=== PATIENT | female | born 1945 | race Caucasian/White ===

== ENCOUNTER 2017-10-31 16:00 | Emergency (ER) | payer MEDICARE, SELFPAY ==
[2017-10-31 16:00] VITALS: BP 182/87; PULSE 70; RESP 20; TEMP 36.9; O2SAT 100
--- NOTE | 2017-10-31 19:29 | DI.RAD.S_ITS ---
PROCEDURE: XR CHEST 2V INDICATIONS: chest pain TECHNIQUE: 2 views of the chest were acquired. COMPARISON: None. FINDINGS: Surgical changes and devices: None. Lungs and pleura: No pleural effusions or pneumothorax. Lungs are clear. Mediastinum: Mediastinal contours are normal. Heart size is normal. Bones and chest wall: No suspicious bony abnormalities. Soft tissues appear unremarkable. IMPRESSION: No acute process. Dictated by: Salbador Deal M.D. on 10/31/2017 at 20:30 Approved by: Salbador Deal M.D. on 10/31/2017 at 20:31
[2017-10-31 19:32] LABS: Hematocrit 35.5 % (36-46); Hemoglobin 12.5 g/dL (12.0-16.0); Mean Corpuscular HGB Conc 35.1 % (30-36); Mean Corpuscular Hemoglobin 33.2 PG (26-34); Mean Corpuscular Volume 94.5 fL (80-100); Platelet Count 276 X10^3/uL (150-400); Red Blood Cell Count 3.76 X10^6/uL (4.0-5.2); Red Cell Distribution Width 13.1 % (11.6-14.8)
[2017-10-31 19:33] LABS: Neutrophils Absolute Manual 4880 /uL (3000-5900); RBC Morphology Normal Morphology; Total Cells Counted 100
[2017-10-31 19:36] VITALS: BP 175/94; PULSE 66; RESP 12; O2SAT 100
[2017-10-31] MEDS: ASPIRIN 81 MG TAB 324 MG PO (19:42)
[2017-10-31] MEDS: SODIUM CHLORIDE 0.9% 1,000 ML 150 ML IV (19:43)
--- NOTE | 2017-10-31 19:45 | ED_ITS ---
HPI - Chest Pain General Chief Complaint: Chest Pain Stated Complaint: CHEST PAIN Time Seen by Provider: 10/31/17 19:28 Source: patient and family Mode of arrival: ambulatory Limitations: no limitations History of Present Illness HPI narrative: 72-year-old otherwise healthy female presents with a chief complaint of episodes of epigastric and upper throat pain off and on over the past week. She denies cardiac equivalent such as dizziness, weakness or lightheadedness. She is not short of breath. She denies provocation or palliation. She is not having pain on arrival. She does admit to recent dental surgery and significant ibuprofen use. MD complaint: chest pain Onset (ago): day(s) Duration: intermittent Pain location: epigastric Severity: moderate Quality: aching Pain radiation: neck Relieving factors: nothing Exacerbating factors: nothing Treatments prior to arrival chest pain: none Related Data Previous Rx's Medication Instructions Recorded cholecalciferol (vitamin D3) 50,000 unit PO QWEEK #12 cap 02/04/16 Allergies Allergy/AdvReac Type Severity Reaction Status Date / Time No Known Drug Allergies Allergy Verified 10/31/17 19:42 Review of Systems Review of Systems All systems reviewed & are unremarkable except as noted in HPI and below Constitutional Denies chills, Denies fever(s), Denies lethargy and Denies weakness Eyes Denies change in vision, Denies eye discharge, Denies irritation and Denies loss of vision ENT Ears, Nose, Mouth, and Throat: Denies change in voice, Denies neck pain and Denies sore throat Cardiovascular Reports chest pain, Denies irregular heart rhythm, Denies lightheadedness, Denies palpitations, Denies dyspnea, Denies dyspnea on exertion and Denies orthopnea Respiratory Denies cough, Denies dyspnea, Denies dyspnea on exertion and Denies wheezing Gastrointestinal Gastrointestinal: Denies abdominal pain, Denies change in bowel habits, Denies diarrhea, Denies nausea and Denies vomiting Genitourinary Denies hematuria, Denies flank pain, Denies urinary incontinence and Denies urinary urgency Musculoskeletal Denies neck pain Integumentary/Breasts Denies pruritus, Denies erythema, Denies rash and Denies wounds Neurologic Denies confusion, Denies loss of vision and Denies weakness Psychiatric Denies anxiety, Denies confusion, Denies depression, Denies homicidal ideation and Denies suicidal ideation Endocrine Denies palpitations Hematologic/Lymphatic Denies easy bruising Allergic/Immunologic Denies wheezing PFSH Surgical History History of cataract removal with insertion of prosthetic lens Status post delivery Family History Father Diabetes mellitus Grandfather Heart disease Grandmother Stroke Mother Osteoporosis Grandmother Mental health problem Sister Bone cancer Social History Smoking Status: Former smoker Exam Initial Vital Signs Initial Vital Signs: Vital Signs Temperature 98.5 F 10/31/17 16:00 Pulse Rate 70 10/31/17 16:00 Respiratory Rate 20 10/31/17 16:00 Blood Pressure 182/87 H 10/31/17 16:00 Pulse Oximetry 100 10/31/17 16:00 Const General: cooperative and well developed Nutritional Appearance: well nourished Orientation: alert, awake, oriented x3 and not confused HENMT Head: normocephalic and atraumatic Ears: external ears normal and TM's normal bilaterally Nose: external nose normal and No nasal discharge Face and sinus: sinuses nontender, face symmetric, no sinus tenderness and No dry mucous membranes Mouth: oral mucosae normal and moist mucous membranes Teeth and gingiva: dentition normal Throat: tonsils normal and uvula midline Eyes General: appearance normal, both eyes and all related structures Eyelids: eyelids normal Conjunctivae: conjunctivae normal Sclera: sclerae normal Pupils: PERRL EOM: EOM intact bilaterally Neck Neck: normal visual inspection, trachea midline, No lymphadenopathy, No midline deformity and No JVD Lymphatic: No lymphedema Chest Chest: normal inspection of the chest Resp Effort & Inspection: normal respiratory effort, able to speak in complete sentences, no respiratory distress and no use of accessory muscles Auscultation: clear to auscultation bilaterally, no rales, no rhonchi and no wheezes Cardio Rate: regular rate Rhythm: regular rhythm Heart Sounds: no click, no gallops, no murmurs and no rubs Pulses: normal peripheral pulses GI Inspection: non-distended Palpation: soft, no hepatosplenomegaly, No guarding, No pulsatile mass and No tender Auscultation: normal bowel sounds Back/Spine/Pelvis Back: No CVA tenderness Cervical Spine: cervical ROM normal and No pain with cervical ROM Thoracic/Lumbar Spine: thoracic and lumbar spine normal to inspection Skin General: no rashes or lesions noted, No jaundice and No petechiae Neuro General: alert, oriented x3, gait normal and no focal motor deficits Speech: speech normal Extrem General: full ROM, no clubbing, cyanosis or edema, no pedal edema and no calf tenderness Psych Appearance: well kempt Mental Status: mental status grossly normal Attitude: cooperative Thought Content: normal and suicidality Judgment: judgment good Scores HEART Score Heart Score history: Slightly Suspicious Heart Score EKG: Normal Heart Score Age: > or = 65 years old Heart Score risk factors: No known risk factors Heart Score troponin: < or = to normal limit Heart Score Total: 2 Course Orders Ordered: ED Orders 10/31/17 19:29 XR chest 2V Stat 10/31/17 20:35 Comprehensive Metabolic Panel Stat Creatine Kinase Stat D Dimer Stat Lipase Stat Partial Thromboplastin Time Stat Prothrombin Time INR Stat Troponin I Stat Discontinued Medications Aspirin (Aspirin Chew) 324 mg PO NOW ONE Stop: 10/31/17 19:30 Last Admin: 10/31/17 19:42 Dose: 324 mg Sodium Chloride (Normal Saline 0.9%) 1,000 mls @ 150 mls/hr IV CONT ABDOUL Last Infusion: 10/31/17 22:48 Dose: 0 mls/hr Admin: 10/31/17 19:43 Dose: 150 mls/hr Reevaluation(s) Reevaluation #1: Patient states the burning pain in her chest worsened after taking aspirin Vital Signs - 8 hr 10/31/17 20:37 10/31/17 21:30 10/31/17 22:09 Pulse Rate 73 64 67 Respiratory Rate 15 14 21 Blood Pressure [Left Arm] 168/91 H 162/84 H 160/81 H Pulse Oximetry 100 98 99 MDM - Chest Pain Lab Data Result diagrams: 10/31/17 14:10 10/31/17 20:35 Lab Results 10/31/17 10/31/17 10/31/17 Range/Units 14:10 14:10 14:10 WBC 8.0 (4.5-11.0) X10^3/uL RBC 3.76 L (4.0-5.2) X10^6/uL Hgb 12.5 (12.0-16.0) g/dL Hct 35.5 L (36-46) % MCV 94.5 (80-100) fL MCH 33.2 (26-34) PG MCHC 35.1 (30-36) % RDW 13.1 (11.6-14.8) % Plt Count 276 (150-400) X10^3/uL Total Counted 100 Seg Neutrophils % 61.0 (38-70) % Lymphocytes % (Manual) 29.0 (25-45) % Monocytes % (Manual) 8.0 (2-11) % Eosinophils % (Manual) 1.0 L (2-4) % Basophils % (Manual) 1.0 (0-1) % Neutrophils # (Manual) 4880 (7640-6069) /uL RBC Morphology Normal morphology PT Cancelled INR Cancelled APTT Cancelled D-Dimer (<230) ng/mL Sodium Cancelled Potassium Cancelled Chloride Cancelled Carbon Dioxide Cancelled BUN Cancelled Creatinine Cancelled Estimated GFR Cancelled BUN/Creatinine Ratio Cancelled Glucose Cancelled Calcium Cancelled Total Bilirubin Cancelled AST Cancelled ALT Cancelled Alkaline Phosphatase Cancelled Total Creatine Kinase Cancelled CK-MB (CK-2) Cancelled CK-MB (CK-2) Rel Index Cancelled Troponin I Cancelled Total Protein Cancelled Albumin Cancelled Globulin Cancelled Albumin/Globulin Ratio Cancelled Lipase (23-300) U/L 10/31/17 10/31/17 Range/Units 20:35 20:35 WBC (4.5-11.0) X10^3/uL RBC (4.0-5.2) X10^6/uL Hgb (12.0-16.0) g/dL Hct (36-46) % MCV (80-100) fL MCH (26-34) PG MCHC (30-36) % RDW (11.6-14.8) % Plt Count (150-400) X10^3/uL Total Counted Seg Neutrophils % (38-70) % Lymphocytes % (Manual) (25-45) % Monocytes % (Manual) (2-11) % Eosinophils % (Manual) (2-4) % Basophils % (Manual) (0-1) % Neutrophils # (Manual) (7218-5045) /uL RBC Morphology PT 10.7 INR 1.0 APTT 28 D-Dimer < 200 (<230) ng/mL Sodium 133 L Potassium 3.8 Chloride 94 L Carbon Dioxide 29 BUN 12 Creatinine 0.60 Estimated GFR > 60.0 BUN/Creatinine Ratio 20.0 Glucose 89 Calcium 9.2 Total Bilirubin 0.4 AST 21 ALT 23 Alkaline Phosphatase 83 Total Creatine Kinase 64 CK-MB (CK-2) CK-MB (CK-2) Rel Index Troponin I < 0.012 Total Protein 6.9 Albumin 4.0 Globulin 2.9 Albumin/Globulin Ratio 1.4 Lipase 121 (23-300) U/L MDM Narrative Medical decision making narrative: Patient has a minimally suspicious story very normal exam. I she has had extensive NSAID had her pain worsens with and said he. Troponin was normal, EKG unremarkable Discharge Plan Departure Patient Disposition: Home, Self-Care Clinical Impression: Atypical chest pain Discharge Date/Time: 10/31/17 22:09 Interventions: ED Discharge Assessment Last Done: 10/31/17 22:09 Instructions: DI for Atypical Chest Pain Activity Restrictions/Additional Instructions: *You have been diagnosed with [ atypical chest pain ] *What to do: *Follow up with your primary care provider in 2-3 days, call for an appointment. Let them know you were seen in the Emergency Department and that we ask that you be seen in follow up *Return to ER if you should have any new, worsening or concerning symptoms , such as [ worsening pain, shortness of breath, fever over 101 F, other bothersome symptoms] Prescriptions: No Action cholecalciferol (vitamin D3) 50,000 UNIT capsule 50,000 unit PO QWEEK Qty: 12 RF: 1 Referrals: Sulema Miller DO [Primary Care Provider] -
[2017-10-31 20:37] VITALS: BP 168/91; PULSE 73; RESP 15; O2SAT 100
[2017-10-31 20:57] LABS: Prothrombin Time 10.7 SECONDS (10.1-12.7)
[2017-10-31 20:59] LABS: PTT Partial Thromboplastin Tim 28 SECONDS (26.4-36.2)
[2017-10-31 21:00] LABS: Alanine Aminotransferase 23 IU/L (9-52); Albumin Globulin Ratio 1.4 (1.0-2.8); Alkaline Phosphatase 83 U/L (38-126); Aspartate Aminotransferase 21 IU/L (14-36); Bilirubin Total 0.4 mg/dL (0.2-1.3); Blood Urea Nitrogen 12 mg/dL (7-17); Calcium 9.2 mg/dL (8.4-10.2); Carbon Dioxide 29 mmol/L (22-32); Chloride 94 mmol/L (98-107); Creatine Kinase 64 U/L (30-135); Estimated Glomerular Filt Rate > 60.0 mL/min (>60); Globulin 2.9 g/dL (1.7-4.1); Glucose 89 mg/dL (80-110); HEMOLYSIS < 15 (0-50); Lipase 121 U/L (23-300); Potassium 3.8 mmol/L (3.4-5.1); Sodium 133 mmol/L (137-145); Total Protein 6.9 g/dL (6.3-8.2)
[2017-10-31 21:03] LABS: D Dimer < 200 ng/mL (<230)
[2017-10-31 21:28] LABS: Troponin I < 0.012 ng/mL (0.01-0.034)
[2017-10-31 21:30] VITALS: BP 162/84; PULSE 64; RESP 14; O2SAT 98
[2017-10-31 22:09] VITALS: BP 160/81; PULSE 67; RESP 21; O2SAT 99
== END 2017-10-31 22:09 | disposition home or self-care (01) ==
PROVIDERS: Emergency Provider Emergency Medicine; Family Provider Family Medicine; PCP Family Medicine
DX: R07.89 Other chest pain (principal)
CPT/HCPCS: 36591; 71046; 80053; 82550; 83690; 84484; 85025; 85379; 85610; 85730; 93005; 96360; 96361; 99283; 99285

== ENCOUNTER → 2017-12-05 09:09 | Outpatient (CLI) | payer MEDICARE, SELFPAY ==
[2017-12-05 10:18] LABS: Cholesterol 194 mg/dL (140-199); HDL Cholesterol 71 mg/dL (40-60); LDL Cholesterol Calculated 106 mg/dL (<100); Triglycerides 84 mg/dL (35-150)
[2017-12-05 10:37] LABS: Vitamin D 25 Hydroxy (D3) 30.5 ng/mL (30.0-100.0)
== END ==
PROVIDERS: PCP Family Medicine; Visit Provider Family Medicine
DX: R07.89 Other chest pain (principal); E55.9 Vitamin D deficiency, unspecified
CPT/HCPCS: 36415; 80061; 82306

== ENCOUNTER → 2018-01-16 09:29 | Outpatient (CLI) | payer MEDICARE, SELFPAY ==
--- NOTE | 2018-01-16 09:31 | DI.MG.S_ITS ---
BILATERAL DIGITAL SCREENING MAMMOGRAM 3D/2D WITH CAD: 01/16/2018 CLINICAL: Routine screening. Comparison is made to exams dated: 12/29/2015 mammogram, 11/12/2012 mammogram, and 11/04/2011 mammogram - [facility]. There are scattered fibroglandular elements in both breasts. Current study was also evaluated with a Computer Aided Detection (CAD) system. There is an oval equal density asymmetry with an indistinct margin in the left breast at 1 o'clock anterior depth. No other significant masses, calcifications, or other findings are seen in either breast. IMPRESSION: INCOMPLETE: NEEDS ADDITIONAL IMAGING EVALUATION The oval equal density asymmetry in the left breast is indeterminate. Mediolateral and spot compression views as well as additional views with possible ultrasound are recommended. This exam was interpreted at Station ID: [id number]. NOTE: For mammograms, a report in lay terms will be sent to the patient. Approximately 15% of breast malignancies will not be visualized mammographically. In the management of a palpable breast mass, a negative mammogram must not discourage biopsy of a clinically suspicious lesion. Electronically Signed By: Maurisio gonzalez/johnnie:01/16/2018 11:37:53 letter sent: Additional Imaging Needed ACR BI-RADS Category 0: Incomplete 3340F
== END ==
PROVIDERS: Family Provider Family Medicine; PCP Family Medicine; Visit Provider Family Medicine
DX: Z12.31 Encounter for screening mammogram for malignant neoplasm of breast (principal); M81.0 Age-related osteoporosis without current pathological fracture; Z78.0 Asymptomatic menopausal state; Z82.62 Family history of osteoporosis
CPT/HCPCS: 77063; 77067; 77080

== ENCOUNTER → 2018-02-14 13:35 | Outpatient (CLI) | payer MEDICARE, SELFPAY ==
--- NOTE | 2018-02-14 13:37 | DI.MG.S_ITS ---
UNILATERAL LEFT DIGITAL DIAGNOSTIC MAMMOGRAM 3D/2D WITH ADDITIONAL VIEWS: 02/14/2018 CLINICAL: Additional evaluation requested from prior study. Comparison is made to exams dated: 01/16/2018 mammogram, 12/29/2015 mammogram, and 11/12/2012 mammogram - Located [facility]. There are scattered fibroglandular elements in left breast. The asymmetry with an indistinct margin in the left breast at 1 o'clock anterior depth is not seen in additional views. No other significant masses or calcifications are seen in the breast. IMPRESSION: There is no mammographic evidence of malignancy. A 1 year screening mammogram is recommended. This exam was interpreted at Station ID: [id number]. NOTE: For mammograms, a report in lay terms will be sent to the patient. Approximately 15% of breast malignancies will not be visualized mammographically. In the management of a palpable breast mass, a negative mammogram must not discourage biopsy of a clinically suspicious lesion. Electronically Signed By: Fabby Godwin M.D. lk/:02/14/2018 14:36:18 letter sent: Normal Exam ACR BI-RADS Category 2: Benign Finding(s) 3342F
== END ==
PROVIDERS: PCP Family Medicine; Visit Provider Family Medicine
DX: R92.8 Other abnormal and inconclusive findings on diagnostic imaging of breast (principal)
CPT/HCPCS: 77065; G0279

== ENCOUNTER → 2018-10-17 09:32 | Outpatient (CLI) | payer MEDICARE, SELFPAY ==
--- NOTE | 2018-11-16 15:58 | P.HOLT.S_ITS ---
Corporate Compliance Director Report Referral & Results Date Patient Seen: 10/17/18 Requesting provider: Sulema Miller Indication: Palpitations Duration of monitoring (days): 14 Diary information: There 0 diary entries from the patient His 1 patient triggered event associated with sinus rhythm Data: Minimum heart rate identified was 52 beats per minute at 05:19 on 10/31/2018 Maximum sinus heart rate was 151 beats per minute at 18:12 on 10/25/2018 Maximum overall heart rate was 184 beats per minute at 23:32 on 10/30/2018 associated with a 4 beat run of SVT Less than 1% identified be rather ventricular supraventricular ectopic in origin There were 7 runs of a accelerated supraventricular rhythm either SVT or atrial tachycardia. The longest was 9 beats and the fast as was 4 beats at 184 beats per minute Impression: Relatively normal threat monitoring analyst as above. Occasional supraventricular dysrhythmia. No clear etiology for palpitations identified on this study.
== END ==
PROVIDERS: PCP Family Medicine; Visit Provider Family Medicine
DX: R00.2 Palpitations (principal)
CPT/HCPCS: 0296T; 0298T

== ENCOUNTER → 2018-12-10 13:34 | Outpatient (CLI) | payer MEDICARE, SELFPAY ==
--- NOTE | 2018-12-10 13:36 | DI.ECHO.S_ITS ---
[facility]---------+ [facility] +---------+ : : [address] [place] : : : : [id number] : : : : Phone: [phone]+ Echocardiogram Report + + :Name: JJ CHÁVEZ Study Date: 12/10/2018 Height: 63 in : :[facility] Weight: 140 lb : : Gender: Female BSA: 1.7 m2 : :: 1945 Age: 73 yrs BP: 110/70 mmHg: :Reason For Study: Palpitations : : Performed By: Odalys Bolden : :Referring: CARY CARR : + + Interpretation Summary Normal left ventricle size with ejection fraction 60-65%. Borderline left atrial enlargement. Mild mitral regurgitation. Procedure: A two-dimensional transthoracic echocardiogram with color flow and Doppler was performed. The study quality was technically adequate. There is no prior echocardiogram noted for this patient. The patient was in normal sinus rhythm during the exam. Left Ventricle: The left ventricle is normal in size. There is normal left ventricular wall thickness. The ejection fraction is estimated to be 60-65%. There are no focal wall motion abnormalities. Right Ventricle: The right ventricle grossly appears normal in size with probable normal systolic function. Atria: Borderline left atrial enlargement. Right atrial size is normal. The interatrial septum is intact with no evidence for an atrial septal defect. Mitral Valve: There is a flat closure plane of the the mitral valve leaflets. There is mild mitral regurgitation. Aortic Valve: The aortic valve is trileaflet. The aortic valve opens well. No aortic regurgitation is present. Tricuspid Valve: The tricuspid valve is normal in structure and function. There is a trace or physiologic amount of tricuspid regurgitation. The right ventricular systolic pressure is estimated to be at least 19 mmHg based on an estimated right atrial pressure of 3 mm Hg. Pulmonic Valve: The pulmonic valve is not well seen, but is grossly normal. There is trace pulmonic regurgitation. Great Vessels: The aortic root is normal size. The dimensions of the ascending aorta are normal. The aortic arch is normal in size. The IVC is of normal diameter and collapses greater than 50% with a sniff. This suggests a low right atrial pressure of 3 mm Hg. Pericardium/ Pleura There is no pericardial effusion. There is no pleural effusion. MMode/2D Measurements & Calculations LVIDd: 4.8 cm Ao root diam: 2.9 cm LVIDs: 2.6 cm Aortic Jxn: 2.4 cm FS: 47.3 % asc Aorta Diam: 2.9 cm EPSS: 0.56 cm Ao Arch Diam (Prox Trans): 2.3 cm IVSd: 0.83 cm LVPWd: 0.61 cm LV zaldivar. diameter/BSA (cm/m^2): 2.9 LV sys. diameter/BSA (cm/m^2): 1.5 LA dimension: 3.2 cm RA long axis: 4.6 cm LA A2 area: 19.4 cm2 RA area: 13.8 cm2 LA A4 area: 18.3 cm2 RA vol: 34.8 ml LA length (vol): 4.7 cm RA : 21.0 ml/m2 LA vol: 63.5 ml RVDd major: 5.2 cm LA vol index: 38.2 ml/m2 RVD1 (basal): 3.7 cm RVD2 (mid): 3.6 cm Doppler Measurements & Calculations Ao V2 max: 137.6 cm/sec MV E max srinath: 89.0 cm/sec Ao V2 mean: 84.6 cm/sec MV A max srinath: 75.8 cm/sec Ao max P.6 mmHg MV E/A: 1.2 Ao mean P.3 mmHg Med Peak E' Srinath: 7.3 cm/sec Ao V2 VTI: 26.7 cm E/E' med: 12.3 Lat Peak E' Srinath: 7.4 cm/sec E/E' lat: 12.1 E/e' average: 12.2 MV dec time: 0.24 sec MV P1/2t: 71.8 msec TR max srinath: 200.1 cm/sec MV P1/2t max srinath: 89.5 cm/sec TR max P.0 mmHg MVA(P1/2t): 3.1 cm2 PA V2 max: 113.8 cm/sec PA V2 mean: 67.5 cm/sec PA mean P.2 mmHg PA Accel Time: 0.11 sec Electronically signed by: Loyda Newby on Reading Physician:12/10/2018 02:50 PM
== END ==
PROVIDERS: PCP Family Medicine; Visit Provider Family Medicine
DX: R00.2 Palpitations (principal)
CPT/HCPCS: C8929

== ENCOUNTER 2019-01-24 12:18 | Day surgery (SDC) | payer MEDICARE, SELFPAY ==
[2019-01-24] VITALS (8 sets, daily range): BP systolic 88–134; BP diastolic 55–75; PULSE 66–83; RESP 10–29; TEMP 36.1–37.1; O2SAT 91–100; BMI 24.8
[2019-01-24] MEDS: SODIUM CHLORIDE 0.9% 1,000 ML 200 ML IV (13:01)
--- NOTE | 2019-01-24 13:22 | PM.HP.1 ---
History of Present Illness History of Present Illness Date Patient Seen: 01/24/19 Time Patient Seen: 13:22 Chief complaint: [id number] Narrative: Patient presents for colorectal screening. They had a prior colonoscopy 5 years ago that was significant for an adenomatous polyp. On further history denies any recent gastrointestinal symptoms. No nausea, vomiting, abdominal pain, loss of appetite, unexplained weight loss, change in bowel habits, diarrhea, constipation, melena, hematochezia, or bright red blood per rectum. Patient History Medical History Acid reflux (Acute) Bruises easily (Acute) Cataract (Resolved 2012) Chicken pox (Resolved 1949) Colon polyps (Resolved 2013) Constipation (Acute) Dupuytren's disease (Chronic ~1989) Former smoker (Acute) History of headache (Acute) History of palpitations (Acute) Mumps (Resolved 1952) Osteoporosis (12/18/15) Surgical History Anesthesia (Resolved) History of cataract removal with insertion of prosthetic lens (Resolved 2012) History of colonoscopy with polypectomy (Resolved 2013) Status post delivery (Resolved 1987) Family History (Updated 12/06/17 @ 08:49 by Torri Trevino) Father Diabetes mellitus Grandfather Heart disease Grandmother Stroke Mother Osteoporosis Grandmother Mental health problem Dementia Sister Bone cancer Brother No problems noted. Brother No problems noted. Grandfather Ruptured appendix Sister No problems noted. Social History household members: spouse Smoking Status: Former smoker Family & Social History Family History Father Diabetes mellitus Grandfather Heart disease Grandmother Stroke Mother Osteoporosis Grandmother Mental health problem Dementia Sister Bone cancer Brother No problems noted. Brother No problems noted. Grandfather Ruptured appendix Sister No problems noted. Social History: household members spouse Tobacco & Substance use: Smoking Status Former smoker alcohol intake frequency 0-2 drinks per day Substance Use Type does not use Meds Home Medications and Allergies Home Medications Medication Instructions Recorded Confirmed Type cholecalciferol (vitamin D3) 2,000 2,000 unit PO DAILY 12/13/17 01/24/19 History unit capsule aspirin 81 mg tablet,delayed 81 mg PO DAILY 01/29/18 01/24/19 History release alendronate 70 mg tablet 70 mg PO QWEEK #12 tab 01/09/19 01/24/19 Rx Allergies Allergy/AdvReac Type Severity Reaction Status Date / Time No Known Drug Allergies Allergy Verified 01/24/19 12:51 Review of Systems Review of Systems ROS Unobtainable: All systems reviewed & are unremarkable except as noted in HPI and below Exam Vital Signs (past 8 hours): - 01/24/19 13:01 Temperature 98.7 F Pulse Rate 83 Respiratory Rate 16 Blood Pressure 134/75 Pulse Oximetry 100 Narrative Exam Narrative: A complete review of systems is negative except as noted in the HPI Assessment & Plan Assessment & Plan narrative: Patient is requiring colorectal screening. Colonoscopy is recommended. Technical details were discussed. Risks, benefits, alternatives explained. Risks including but not limited to sedation, aspiration, bleeding, pain, missed lesion, incomplete examination, need for further radiographic studies, colonic perforation, need for major abdominal surgery, and all attendant risks major surgery were discussed at length. All questions were answered to their satisfaction, and they voiced understanding.
[2019-01-24] MEDS: MIDAZOLAM 5 MG/5 ML VIAL IV (13:31)
[2019-01-24] MEDS: fentaNYL 250 MCG/5 ML INJ IV (13:32)
--- NOTE | 2019-01-24 13:58 | PM.OP.ENDO ---
Operative Date/Time/Diagnoses Date of procedure: 01/24/19 Time of procedure: 13:58 Pre-op diagnosis: Screening colonoscopy Post-op diagnosis: same Procedure & Clinicians Study performed: Colonoscopy Same procedure as scheduled: Yes Indications: 73-year-old male previous colonoscopy 10 years ago normal presents for screening Surgeon: Yayo Guallpa Procedure Notes SCOAP/Timeout: Performed Procedure in detail: Patient placed in left lateral decubitus position. Time out was performed. Procedural sedation was administered with Versed and Fentanyl. A rectal exam demonstrated no external hemorrhoids no internal masses. Colonoscopy scope was placed into the rectum and advanced through the colon to the cecum. The ileocecal valve was identified. The scope was then slowly withdrawn examining colon thoroughly in all directions. The colonoscopy was notable for sigmoid diverticulosis. There were no masses polyps or colitis. The scope was retroflexed within the rectum demonstrated grade 1 internal hemorrhoids. The rectum was desufflated and the scope removed. Patient tolerated procedure well. Scope withdrawal time: 8 Sedation minutes: 20 Findings: diverticulosis and internal hemorrhoids Specimen(s): none sent Impression: diverticulosis Post-procedure Recommendations: Colonscopy in 10 years Disposition: PACU
== END 2019-01-24 14:49 | disposition home or self-care (01) ==
PROVIDERS: PCP Family Medicine; Visit Provider Surgery
PROC: 0DJD8ZZ Inspection of Lower Intestinal Tract, Via Natural or Artificial Opening Endoscopic (ICD-10-PCS; CPT 45378; principal; 2019-01-24 13:30)
DX: Z86.010 Personal history of colon polyps (principal); K57.50 Diverticulosis of both small and large intestine without perforation or abscess without bleeding; K64.0 First degree hemorrhoids
CPT/HCPCS: G0105; 99152; J2250; J3010

== ENCOUNTER → 2019-03-11 13:19 | Outpatient (CLI) | payer MEDICARE, SELFPAY ==
[2019-03-11 14:15] LABS: Alanine Aminotransferase 12 IU/L (<35); Albumin 4.3 g/dL (3.5-5.0); Albumin Globulin Ratio 1.3 (1.0-2.8); Alkaline Phosphatase 86 U/L (38-126); Aspartate Aminotransferase 23 IU/L (14-36); Bilirubin Total 0.5 mg/dL (0.2-1.3); Blood Urea Nitrogen 14 mg/dL (7-17); Calcium 9.4 mg/dL (8.4-10.2); Carbon Dioxide 29 mmol/L (22-32); Chloride 98 mmol/L (98-107); Cholesterol 227 mg/dL (140-199); Estimated Glomerular Filt Rate > 60.0 mL/min (>60); Globulin 3.3 g/dL (1.7-4.1); Glucose 108 mg/dL (80-110); HDL Cholesterol 79 mg/dL (40-60); HEMOLYSIS < 15 (0-50); LDL Cholesterol Calculated 121 mg/dL (<100); Potassium 4.6 mmol/L (3.4-5.1); Sodium 135 mmol/L (137-145); Total Protein 7.6 g/dL (6.3-8.2); Triglycerides 137 mg/dL (35-150)
== END ==
PROVIDERS: PCP Family Medicine; Visit Provider Family Medicine
DX: E78.5 Hyperlipidemia, unspecified (principal)
CPT/HCPCS: 36415; 80053; 80061

== ENCOUNTER → 2019-11-21 14:33 | Outpatient (CLI) | payer MEDICARE, SELFPAY | PROVIDERS: PCP Family Medicine; Visit Provider Registered Nurse | DX: N39.0 Urinary tract infection, site not specified (principal) | CPT/HCPCS: 87077; 87086; 87186 ==

== ENCOUNTER → 2020-01-03 13:23 | Outpatient (CLI) | payer MEDICARE, SELFPAY ==
[2020-01-03 14:57] LABS: RBC Urine None Seen (0-5/HPF)
[2020-01-03 15:58] LABS: Appearance Urine UA CLEAR; Bilirubin Urine UA NEGATIVE (NEGATIVE); Color Urine UA YELLOW; Glucose Urine UA NEGATIVE (Negative); Ketones Urine UA NEGATIVE (NEGATIVE); Leukocyte Esterase Urine UA 1+ (NEGATIVE); Nitrite Urine UA POSITIVE (Negative); Occult Blood Urine UA NEGATIVE (Negative); Protein Urine UA NEGATIVE (Negative); Specific Gravity Urine UA <=1.005 (1.000-1.035); Urobilinogen Urine UA 0.2 E.U./dL (0.2)
[2020-01-03 16:07] LABS: Bacteria Urine Many (>30); Culture Indicated Urine Specimen Cultured; WBC Urine 5-10/HPF (0-5/HPF)
[2020-01-03 17:00] LABS: Alanine Aminotransferase 11 IU/L (<35); Albumin 3.9 g/dL (3.5-5.0); Albumin Globulin Ratio 1.3 (1.0-2.8); Alkaline Phosphatase 97 U/L (38-126); Aspartate Aminotransferase 22 IU/L (14-36); BUN Creatinine Ratio 19.3 (6-22); Bilirubin Total 0.3 mg/dL (0.2-1.3); Blood Urea Nitrogen 11 mg/dL (7-17); Calcium 9.3 mg/dL (8.4-10.2); Carbon Dioxide 29 mmol/L (22-32); Chloride 96 mmol/L (98-107); Cholesterol 202 mg/dL (140-199); Estimated Glomerular Filt Rate > 60.0 mL/min (>60); Glucose 79 mg/dL (80-110); HDL Cholesterol 81 mg/dL (40-60); HEMOLYSIS < 15 (0-50); LDL Cholesterol Calculated 97 mg/dL (<100); Potassium 4.3 mmol/L (3.4-5.1); Sodium 133 mmol/L (137-145); Total Protein 6.9 g/dL (6.3-8.2); Triglycerides 118 mg/dL (35-150)
== END ==
PROVIDERS: PCP Family Medicine; Referring Provider Registered Nurse; Visit Provider Registered Nurse
DX: N39.0 Urinary tract infection, site not specified (principal); E78.5 Hyperlipidemia, unspecified; R73.03 Prediabetes
CPT/HCPCS: 36415; 80053; 80061; 81001; 87077; 87086; 87186

== ENCOUNTER → 2020-01-16 10:03 | Outpatient (CLI) | payer MEDICARE, SELFPAY | PROVIDERS: PCP Family Medicine; Referring Provider Family Medicine; Visit Provider Family Medicine | DX: M81.0 Age-related osteoporosis without current pathological fracture (principal); Z78.0 Asymptomatic menopausal state; Z82.62 Family history of osteoporosis; Z87.891 Personal history of nicotine dependence | CPT/HCPCS: 77080 ==

== ENCOUNTER → 2020-01-17 13:26 | Outpatient (CLI) | payer MEDICARE, SELFPAY ==
[2020-01-17 15:39] LABS: Appearance Urine UA SL CLOUDY; Bilirubin Urine UA NEGATIVE (NEGATIVE); Glucose Urine UA NEGATIVE (Negative); Ketones Urine UA NEGATIVE (NEGATIVE); Leukocyte Esterase Urine UA 2+ (NEGATIVE); Nitrite Urine UA POSITIVE (Negative); Occult Blood Urine UA TRACE-LYSED (Negative); Protein Urine UA NEGATIVE (Negative); Urobilinogen Urine UA 0.2 E.U./dL (0.2)
[2020-01-17 15:47] LABS: Bacteria Urine Many (>30); Color Urine UA Yellow; Culture Indicated Urine Specimen Cultured; RBC Urine 0-1/HPF (0-5/HPF); WBC Urine 30-100/HPF (0-5/HPF)
== END ==
PROVIDERS: PCP Family Medicine; Visit Provider Nurse Practitioner Family
DX: R30.0 Dysuria (principal)
CPT/HCPCS: 81001; 87077; 87086; 87186

== ENCOUNTER → 2020-01-24 11:10 | Outpatient (CLI) | payer MEDICARE, SELFPAY | PROVIDERS: PCP Family Medicine; Visit Provider Family Medicine | DX: N39.0 Urinary tract infection, site not specified (principal) | CPT/HCPCS: 87077; 87086; 87186 ==

== ENCOUNTER → 2020-02-05 08:57 | Outpatient (CLI) | payer MEDICARE, SELFPAY ==
[2020-02-05 13:40] LABS: Appearance Urine UA SL CLOUDY; Bilirubin Urine UA NEGATIVE (NEGATIVE); Color Urine UA YELLOW; Glucose Urine UA NEGATIVE (Negative); Ketones Urine UA NEGATIVE (NEGATIVE); Leukocyte Esterase Urine UA 3+ (NEGATIVE); Nitrite Urine UA POSITIVE (Negative); Occult Blood Urine UA TRACE-LYSED (Negative); Protein Urine UA NEGATIVE (Negative); Specific Gravity Urine UA <=1.005 (1.000-1.035); Urobilinogen Urine UA 0.2 E.U./dL (0.2)
[2020-02-05 14:04] LABS: Bacteria Urine Many (>30); Culture Indicated Urine Cult Not Indicated; RBC Urine 1-5/HPF (0-5/HPF); Squamous Epithelial Cell Urine 5-10 /HPF (0-5/HPF); WBC Urine 10-30/HPF (0-5/HPF); pH Urine UA 6.5 (4.5-8.0)
== END ==
PROVIDERS: PCP Family Medicine; Visit Provider Family Medicine
DX: N39.0 Urinary tract infection, site not specified (principal)
CPT/HCPCS: 81001

== ENCOUNTER → 2020-02-10 09:34 | Outpatient (CLI) | payer MEDICARE, SELFPAY | PROVIDERS: PCP Family Medicine; Referring Provider Family Medicine; Visit Provider Family Medicine | DX: N39.0 Urinary tract infection, site not specified (principal) | CPT/HCPCS: 87077; 87086; 87186 ==

== ENCOUNTER → 2020-02-17 09:25 | Outpatient (CLI) | payer MEDICARE, SELFPAY | PROVIDERS: PCP Family Medicine; Visit Provider Family Medicine | DX: N39.0 Urinary tract infection, site not specified (principal) | CPT/HCPCS: 87086 ==

== ENCOUNTER 2021-07-26 14:17 | Emergency (ER) | payer OTHER, SELFPAY ==
[2021-07-26 14:39] VITALS: BP 209/99; PULSE 69; RESP 16; TEMP 36.2; O2SAT 97; BMI 24.7
--- NOTE | 2021-07-26 14:46 | DI.RAD.S_ITS ---
PROCEDURE: XR ACUTE ABDOMEN SERIES INDICATIONS: no stool x 1 week, not passing gas TECHNIQUE: One view chest and two views of the abdomen were acquired. COMPARISON: None. FINDINGS: Surgical changes and devices: None. Chest: Lungs are clear. Heart size is normal. No pleural effusions. No pneumoperitoneum. Probable emphysematous change. Abdomen: Bowel gas pattern is normal. Moderately large right colonic fecal load. No suspicious calcifications. Visualized solid organ contours appear normal. Bones: No suspicious bony lesions. IMPRESSION: Moderately large right colonic fecal load. Nonobstructive bowel gas pattern. Probable COPD. Dictated by: Mike Rao M.D. on 07/26/2021 at 15:46 Approved by: Mike Rao M.D. on 07/26/2021 at 15:47
[2021-07-26 14:58] LABS: Add Manual Diff / Slide Review NO; Basophils Absolute Auto 0 /uL (0-100); Basophils Percent Auto 0.5 % (0-2); Eosinophils Absolute Auto 0 /uL (0-450); Eosinophils Percent Auto 0.5 % (2-4); Hematocrit 27.6 % (36-46); Hemoglobin 9.3 g/dL (12.0-16.0); Lymphocytes Absolute Auto 1400 /uL (1100-4500); Lymphocytes Percent Auto 18.7 % (25-40); Mean Corpuscular HGB Conc 33.8 % (30-36); Mean Corpuscular Hemoglobin 30.7 PG (26-34); Mean Corpuscular Volume 90.8 fL (80-100); Monocytes Absolute Auto 500 /uL (0-900); Neutrophils Absolute Auto 5600 /uL (1500-7000); Neutrophils Percent Auto 73.3 % (50-75); Platelet Count 332 X10^3/uL (150-400); Red Blood Cell Count 3.04 X10^6/uL (4.0-5.2); Red Cell Distribution Width 13.8 % (11.6-14.8); White Blood Cell Count 7.7 X10^3/uL (4.5-11.0)
[2021-07-26 15:11] LABS: Alanine Aminotransferase 11 IU/L (<35); Albumin 4.3 g/dL (3.5-5.0); Albumin Globulin Ratio 1.2 (1.0-2.8); Alkaline Phosphatase 78 U/L (38-126); Aspartate Aminotransferase 25 IU/L (14-36); BUN Creatinine Ratio 16.4 (6-22); Bilirubin Total 0.4 mg/dL (0.2-1.3); Blood Urea Nitrogen 11 mg/dL (7-17); Calcium 9.7 mg/dL (8.4-10.2); Carbon Dioxide 27 mmol/L (22-32); Chloride 94 mmol/L (98-107); Estimated Glomerular Filt Rate > 60.0 mL/min (>60); Globulin 3.7 g/dL (1.7-4.1); Glucose 96 mg/dL (80-110); HEMOLYSIS < 15 (0-50); Lipase 110 U/L (23-300); Potassium 4.2 mmol/L (3.4-5.1); Sodium 131 mmol/L (137-145)
[2021-07-26 17:47] VITALS: BP 199/95; PULSE 73; RESP 18; O2SAT 99
[2021-07-26 17:58] VITALS: PULSE 74; O2SAT 100
[2021-07-26 18:00] VITALS: BP 190/86; PULSE 73; RESP 18; O2SAT 100
[2021-07-26 18:30] VITALS: BP 189/86; PULSE 77; RESP 18; O2SAT 99
--- NOTE | 2021-07-26 18:42 | ED_ITS ---
HPI - General Adult General Chief complaint: Abdominal Pain Stated complaint: Upper Abd Pain, Constipation Time Seen by Provider: 07/26/21 18:12 Source: patient Mode of arrival: Family Vehicle History of Present Illness HPI narrative: 75-year-old woman with osteoporosis and no significant medical history presents with abdominal pain that is increasing over the last couple of days and notes that she has not had a bowel movement for a week. She has been using MiraLax nightly for the past 4 days with no success. She notes that she is passing gas, she has had no fevers, vomiting, palpitations, chest pain, dyspnea, orthopnea, lower extremity edema. Related Data Home Medications Medication Instructions Recorded Confirmed cholecalciferol (vitamin D3) 50 2,000 unit PO DAILY 12/13/17 02/17/20 mcg (2,000 unit) capsule aspirin 81 mg tablet,delayed 81 mg PO DAILY 01/29/18 02/17/20 release (Adult Low Dose Aspirin) Previous Rx's Medication Instructions Recorded alendronate 70 mg tablet 70 mg PO QWEEK #12 tab 01/09/19 estradiol 1 gram VAG 2XW #42.5 gram 01/17/20 fluconazole 150 mg tablet 150 mg PO ONCE #2 tab 02/17/20 Allergies Allergy/AdvReac Type Severity Reaction Status Date / Time No Known Drug Allergies Allergy Verified 07/26/21 14:44 Review of Systems Review of Systems Narrative: Remainder of complete review of systems is otherwise unremarkable except for that included in the HPI. Patient History Medical History Acid reflux Bruises easily Cataract (2012) Chicken pox (1949) Colon polyps (2013) Constipation Dupuytren's disease (~1989) Former smoker History of headache History of palpitations Hyperlipidemia Mumps (1952) Osteoporosis (12/18/15) Pre-diabetes Recurrent UTI Surgical History Anesthesia History of cataract removal with insertion of prosthetic lens (2012) History of colonoscopy with polypectomy (2013) Status post delivery (1987) Family History Father Diabetes mellitus Grandfather Heart disease Grandmother Stroke Mother Osteoporosis Grandmother Mental health problem Dementia Sister Bone cancer Brother No problems noted. Brother No problems noted. Grandfather Ruptured appendix Sister No problems noted. Social History household members: spouse Smoking Status: Former smoker Smoking Status: Former smoker alcohol intake frequency: 0-2 drinks per day Substance Use Type: does not use Exam Initial Vital Signs Initial Vital Signs: Vital Signs Temperature 97.1 F L 07/26/21 14:39 Pulse Rate 69 07/26/21 14:39 Respiratory Rate 16 07/26/21 14:39 Blood Pressure 209/99 H 07/26/21 14:39 Pulse Oximetry 97 07/26/21 14:39 General: Healthy appearing, in no acute distress. Able to give a complete and coherent history. Well-nourished well-developed HEENT: Moist mucous membranes, normal sclera with reactive pupils, Respiratory: Lungs are clear to auscultation, no wheezing no rales no rhonchi. Full and symmetrical air movement Cardiac: Regular rate and rhythm no murmurs no bruits Abdomen: Soft, nontender, good bowel tones, no flank pain Skin: Warm and dry, no rashes Neurologic: Grossly neurologically intact with no obvious asymmetries or abnormalities Extremities: No trauma, well perfused Psych: Cooperative, appropriate insight and affect Course Orders Ordered: ED Orders 07/26/21 14:44 EKG-12 Lead Stat 07/26/21 14:46 XR acute abdomen series Stat 07/26/21 14:51 Complete Blood Count AUTO DIFF Stat Comprehensive Metabolic Panel Stat Lipase Stat Vital Signs Vital signs: Vital Signs - 8 hr 07/26/21 14:39 07/26/21 17:47 07/26/21 17:58 Temperature 97.1 F L Pulse Rate 69 73 74 Respiratory Rate 16 18 Blood Pressure 209/99 H 199/95 H Pulse Oximetry 97 99 100 07/26/21 18:00 07/26/21 18:30 Temperature Pulse Rate 73 77 Respiratory Rate 18 18 Blood Pressure 190/86 H 189/86 H Pulse Oximetry 100 99 Medical Decision Making Lab Data Result diagrams: 07/26/21 14:51 07/26/21 14:51 Labs: Lab Results 07/26/21 07/26/21 Range/Units 14:51 14:51 WBC 7.7 (4.5-11.0) X10^3/uL RBC 3.04 L (4.0-5.2) X10^6/uL Hgb 9.3 L (12.0-16.0) g/dL Hct 27.6 L (36-46) % MCV 90.8 (80-100) fL MCH 30.7 (26-34) PG MCHC 33.8 (30-36) % RDW 13.8 (11.6-14.8) % Plt Count 332 (150-400) X10^3/uL Neut % (Auto) 73.3 (50-75) % Lymph % (Auto) 18.7 L (25-40) % [place] % (Auto) 7.0 (3-14) % Eos % (Auto) 0.5 L (2-4) % Baso % (Auto) 0.5 (0-2) % Neut # (Auto) 5600 (4565-1045) /uL Lymph # (Auto) 1400 (5292-3195) /uL [place] # (Auto) 500 (0-900) /uL Eos # (Auto) 0 (0-450) /uL Baso # (Auto) 0 (0-100) /uL Sodium 131 L (137-145) mmol/L Potassium 4.2 (3.4-5.1) mmol/L Chloride 94 L (98-107) mmol/L Carbon Dioxide 27 (22-32) mmol/L BUN 11 (7-17) mg/dL Creatinine 0.67 (0.52-1.04) mg/dL Estimated GFR > 60.0 (>60) mL/min BUN/Creatinine Ratio 16.4 (6-22) Glucose 96 (80-110) mg/dL Calcium 9.7 (8.4-10.2) mg/dL Total Bilirubin 0.4 (0.2-1.3) mg/dL AST 25 (14-36) IU/L ALT 11 (<35) IU/L Alkaline Phosphatase 78 (38-126) U/L Total Protein 8.0 (6.3-8.2) g/dL Albumin 4.3 (3.5-5.0) g/dL Globulin 3.7 (1.7-4.1) g/dL Albumin/Globulin Ratio 1.2 (1.0-2.8) Lipase 110 (23-300) U/L Urine Dip Bedside Urine Glucose Negative Bedside Urine Bilirubin - Negative Bedside Urine Ketone +/- 5 Urine Specific [place] 1.025 Bedside Urine Occult Blood - Negative Bedside Urine pH 6.0 Bedside Urine Protein - Negative Bedside Urine Urobilinogen - Negative Bedside Urine Nitrite - Negative Bedside Urine Leukocytes - Negative Esterase Point of care testing: Urine Dip Bedside Urine Glucose Negative Bedside Urine Bilirubin - Negative Bedside Urine Ketone +/- 5 Urine Specific [place] 1.025 Bedside Urine Occult Blood - Negative Bedside Urine pH 6.0 Bedside Urine Protein - Negative Bedside Urine Urobilinogen - Negative Bedside Urine Nitrite - Negative Bedside Urine Leukocytes - Negative Esterase Imaging Data Abdominal x-ray: Radiologist's Impression: FINDINGS:? ? Surgical changes and devices:? None.? ? Chest:? Lungs are clear.? Heart size is normal.? No pleural effusions.? No pneumoperitoneum.? Probable emphysematous change. ? Abdomen:? Bowel gas pattern is normal.? Moderately large right colonic fecal lo ad.? No suspicious calcifications.? Visualized solid organ contours appear normal.? ? Bones:? No suspicious bony lesions.? ? IMPRESSION:? Moderately large right colonic fecal load.? Nonobstructive bowel gas pattern. Probable COPD.? ? Dictated by: Mike Rao M.D. on 07/26/2021 at 15:46? ?? MDM Narrative Medical decision making narrative: 75-year-old woman with minimal medical history with no bowel movement for a week despite in creasing doses of MiraLax. Her abdominal exam is completely benign. X-ray suggests large amount of stool in the right colon. On rectal exam she has no stool in the rectal vault. Discussed a bottle of magnesium citrate at home this evening to encourage that right-sided stool bolus to begin moving. I also suggested she continue daily MiraLax unless her stools are particularly soft and runny. She will follow-up with her primary care physician. At this point there is no evidence of surgical abdomen infection or additional findings that would dictate additional workup for hospital admission. She is safe for home discharge Discharge Plan Departure Patient Disposition: Home Clinical Impression: Constipation Instructions: DI for Constipation Activity Restrictions/Additional Instructions: Thank you for coming in today You do have quite a bit of stool all over on the right side. There is no sign of bowel obstruction, perforation or other complication. I am going to send you home with a bottle of magnesium citrate and suggest that you drink it this evening. Please expect quite a bit of stool following this. I would recommend continuing daily MiraLax to prevent this in the future If you have new or worsening symptoms please feel free to return to the ER Prescriptions: No Action alendronate 70 mg tablet 70 mg PO QWEEK Qty: 12 3RF Hold Instructions: jaw pain cholecalciferol (vitamin D3) 2,000 unit capsule 2,000 unit PO DAILY 0RF aspirin [Adult Low Dose Aspirin] 81 mg tablet,delayed release (DR/EC) 81 mg PO DAILY 0RF estradiol 0.01 % (0.1 mg/gram) cream 1 gram VAG 2XW Qty: 42.5 0RF Rx Instructions: use a pea sized amount to the external vagina 2 times per week fluconazole 150 mg tablet 150 mg PO ONCE Qty: 2 0RF Rx Instructions: as a single dose on 02/18, may repeat in 7 days if necessary Referrals: Sulema Miller DO [Primary Care Provider] -
[2021-07-26] MEDS: MAGNESIUM CITRATE 300 ML SOLUTION PO (19:14)
== END 2021-07-26 19:23 | disposition home or self-care (01) ==
PROVIDERS: Emergency Medicine; Emergency Provider Emergency Medicine; PCP Family Medicine
DX: K59.00 Constipation, unspecified (principal); Z87.891 Personal history of nicotine dependence
CPT/HCPCS: 36415; 74022; 80053; 81003; 83690; 85025; 93005; 93010; 99284

== ENCOUNTER → 2021-09-14 09:08 | Outpatient (CLI) | payer OTHER, SELFPAY ==
[2021-09-14 10:09] LABS: Add Manual Diff / Slide Review NO; Basophils Absolute Auto 100 /uL (0-100); Basophils Percent Auto 1.1 % (0-2); Eosinophils Absolute Auto 100 /uL (0-450); Eosinophils Percent Auto 1.5 % (2-4); Hemoglobin 9.6 g/dL (12.0-16.0); Lymphocytes Absolute Auto 1500 /uL (1100-4500); Lymphocytes Percent Auto 27.1 % (25-40); Mean Corpuscular HGB Conc 33.1 % (30-36); Mean Corpuscular Hemoglobin 27.2 PG (26-34); Mean Corpuscular Volume 82.1 fL (80-100); Monocytes Absolute Auto 500 /uL (0-900); Monocytes Percent Auto 9.7 % (3-14); Neutrophils Absolute Auto 3300 /uL (1500-7000); Neutrophils Percent Auto 60.6 % (50-75); Platelet Count 414 X10^3/uL (150-400); Red Blood Cell Count 3.53 X10^6/uL (4.0-5.2); Red Cell Distribution Width 15.1 % (11.6-14.8); White Blood Cell Count 5.5 X10^3/uL (4.5-11.0)
[2021-09-14 10:16] LABS: Prothrombin Time 11.4 SECONDS (10.1-12.7)
[2021-09-14 10:27] LABS: Alanine Aminotransferase 11 IU/L (<35); Albumin 4.3 g/dL (3.5-5.0); Albumin Globulin Ratio 1.2 (1.0-2.8); Alkaline Phosphatase 90 U/L (38-126); Aspartate Aminotransferase 23 IU/L (14-36); BUN Creatinine Ratio 20.3 (6-22); Bilirubin Total 0.3 mg/dL (0.2-1.3); Blood Urea Nitrogen 13 mg/dL (7-17); Carbon Dioxide 28 mmol/L (22-32); Chloride 97 mmol/L (98-107); Estimated Glomerular Filt Rate > 60 mL/min (>60); Globulin 3.7 g/dL (1.7-4.1); Glucose 106 mg/dL (80-110); HEMOLYSIS < 15 (0-50); Potassium 4.1 mmol/L (3.4-5.1); Sodium 131 mmol/L (137-145)
[2021-09-14 11:13] LABS: HEMOLYSIS < 15 (0-50); Iron 47 ug/dL (37-170)
[2021-09-14 11:24] LABS: Percent Iron Saturation 11 % (15-50); Total Iron Binding Capacity 439 ug/dL (265-497); Transferrin 338 mg/dL (206-381)
[2021-09-14 11:41] LABS: TSH w/ Reflex to FT4 2.19 uIU/mL (0.47-4.68)
== END ==
PROVIDERS: PCP Family Medicine; Referring Provider Family Medicine; Visit Provider Family Medicine
DX: D64.9 Anemia, unspecified (principal); K59.00 Constipation, unspecified; E78.5 Hyperlipidemia, unspecified; R73.03 Prediabetes
CPT/HCPCS: 80053; 83540; 83550; 84443; 85025; 85045; 85610

== ENCOUNTER → 2022-01-11 09:09 | Outpatient (CLI) | payer OTHER, SELFPAY ==
[2022-01-11 10:29] LABS: COVID19 -Nasal RAPID Negative (Negative)
== END ==
PROVIDERS: PCP Pediatrics; Visit Provider Surgery
DX: Z20.822 Contact with and (suspected) exposure to COVID-19 (principal); Z01.812 Encounter for preprocedural laboratory examination
CPT/HCPCS: 87635; C9803

== ENCOUNTER 2022-01-12 07:42 | Day surgery (SDC) | payer OTHER, SELFPAY ==
--- NOTE | 2022-01-12 | PATH_ITS ---
[facility] Accession Number: [id number] . 01 Material submitted: . PART A: gastrointestinal site - GASTRIC ULCER PART B: rectum - RECTAL POLYP X2 . 01 Diagnosis: A. Gastric Ulcer, Biopsy: Gastric mucosa with mild chronic inflammation and reactive foveolar hyperplasia. See comment. No Helicobacter pylori organisms on immunohistochemical stain. No intestinal metaplasia, dysplasia, or malignancy. . B. Rectal Polyp x2, Biopsy: Hyperplastic polyp x2. [facility] 01/18/2022 1431 Local . 01 Comment: Foveolar hyperplasia is also a reactive process due to recurrent mucosal injury and may be seen adjacent to an ulcer or erosion. . 01 Electronically signed: . Alaina Rosas MD, Pathologist NPI- [id number] . 01 Gross description: . Part A: GASTRIC ULCER: Received in formalin are 4 fragment(s) of motta, soft tissue measuring 0.3 x 0.2 x 0.2 cm to 0.2 x 0.1 x 0.1 cm submitted entirely in 1 cassette(s) Part B: RECTAL POLYP X2: Received in formalin are 2 fragment(s) of motta, soft tissue measuring 0.4 x 0.2 x 0.1 cm to 0.3 x 0.1 x 0.1 cm submitted entirely in 1 cassette(s) /CPE 01/14/2022 0801 Local . 01 Microscopic: . A. An immunohistochemical stain was performed to evaluate for Helicobacter organisms and is negative. The control stain showed appropriate reactivity. . 01 Pathologist provided ICD-10: D12.8, K29.30 . 01 CPT . 544259, 882648, [id number] Performed at: 01 [facility] [address] [place] [address] [address], [place], [place] [id number] MD Maurisio Guzman MD Phone: [phone]
[2022-01-12 08:06] VITALS: BMI 24.7
--- NOTE | 2022-01-12 08:07 | PM.HP.1 ---
History of Present Illness History of Present Illness Date Patient Seen: 01/12/22 Time Patient Seen: 08:08 Chief complaint: SDC Narrative: I reviewed my recent office note from October. No changes. Patient History Medical History Acid reflux Bruises easily Cataract (2012) Chicken pox (1949) Colon polyps (2013) Constipation Constipation Dupuytren's disease (~1989) Former smoker GERD (gastroesophageal reflux disease) History of headache History of palpitations Hyperlipidemia Mumps (1952) Osteoporosis (12/18/15) Pre-diabetes Recurrent UTI Surgical History Anesthesia History of cataract removal with insertion of prosthetic lens (2012) History of colonoscopy with polypectomy (2013) Status post delivery (1987) Family & Social History Family History Father Diabetes mellitus Grandfather Heart disease Grandmother Stroke Mother Osteoporosis Grandmother Mental health problem Dementia Sister Bone cancer Brother No problems noted. Brother No problems noted. Grandfather Ruptured appendix Sister No problems noted. Social History: household members spouse Tobacco & Substance use: Smoking Status Former smoker alcohol intake frequency 0-2 drinks per day Substance Use Type does not use Meds Home Medications and Allergies Home Medications Medication Instructions Recorded Confirmed Type cholecalciferol (vitamin D3) 50 2,000 unit PO DAILY 12/13/17 02/17/20 History mcg (2,000 unit) capsule aspirin 81 mg tablet,delayed 81 mg PO DAILY 01/29/18 02/17/20 History release (Adult Low Dose Aspirin) alendronate 70 mg tablet 70 mg PO QWEEK #12 tabs 01/09/19 02/17/20 Rx estradiol 0.01% (0.1 mg/gram) 1 gram vaginal 2XW #42.5 grams 01/17/20 02/17/20 Rx vaginal cream fluconazole 150 mg tablet 150 mg PO ONCE #2 tabs 02/17/20 02/17/20 Rx docusate sodium 100 mg capsule 100 mg PO BID constipation #60 caps 09/15/21 09/15/21 Rx (Colace) omeprazole magnesium 20 mg 20 mg PO DAILY reflux #30 tabs 09/15/21 09/15/21 Rx tablet,delayed release (Prilosec OTC) polyethylene glycol 3350 17 17 g PO DAILY PRN constipation 09/16/21 09/16/21 Rx gram/dose oral powder (Miralax) #238 grams Allergies Allergy/AdvReac Type Severity Reaction Status Date / Time No Known Drug Allergies Allergy Verified 01/12/22 08:03 Review of Systems Review of Systems ROS: Yes All systems reviewed with the patient and are negative except as otherwise documented Exam Const General: cooperative HENMT Head: normal to inspection Eyes General: appearance normal, both eyes and all related structures Neck Neck: normal visual inspection Chest Chest: normal inspection of the chest Resp Effort & Inspection: normal respiratory effort Cardio Rate: regular rate GI Inspection: normal to inspection Skin General: no rashes or lesions noted Neuro General: patient alert and patient awake Extrem General: normal to inspection and no pedal edema Psych Appearance: grossly normal Assessment & Plan Assessment & Plan narrative: 76-year-old female with a change in bowel habit GERD and an iron deficiency anemia. EGD colonoscopy is pursued today. Time Spent With Patient Critical Care time: I spent a total of [] minutes of critical care time on this patient's care today; this time is exclusive of procedural time.
--- NOTE | 2022-01-12 08:09 | PM.PREOP ---
Pre-operative Note COVID-19 COVID-19 status: Negative Result date/Date tested (Pos, Neg/Pending): 01/11/22 Criteria for continued procedure: Possibility delay results in more complex future surgery or treatment Interval Note History & Physical reviewed/Exam performed by Physician: Yes Changes to H&P: No ASA Class (for procedural sedation): II
[2022-01-12 08:19] VITALS: BP 156/86; PULSE 72; RESP 16; TEMP 36.8; O2SAT 98
[2022-01-12] MEDS: LACTATED RINGERS 1,000 ML 42 ML IV (08:26)
--- NOTE | 2022-01-12 09:40 | SUR.OPER ---
APC done in ascending colon by Dr parisi
--- NOTE | 2022-01-12 09:46 | PM.OP.EC ---
Operative Date/Time/Diagnoses Date of procedure: 01/12/22 Time of procedure: 09:46 Pre-op diagnosis: Reflux, constipation, iron-deficiency anemia Post-op diagnosis: same Procedure & Clinicians Study performed: EGD with biopsies and colonoscopy with APC and cold snare polypectomy Same procedure as scheduled: Yes Indications: GERD, constipation, iron-deficiency anemia Surgeon: Bertrand Feng Procedure Notes SCOAP/Timeout: Done Procedure in detail: After the risks and benefits were explained, written and verbal informed consent was obtained. The patient was brought into the procedure room and placed into the left lateral decubitus position. Please see nurse general utility maintenance repairer notes for sedation details. The scope was introduced into the mouth through the bite block and advanced under direct visualization to the 2nd portion of the duodenum. The scope was slowly withdrawn carefully examining the mucosa for any defects or lesions. Retroflexed views were accomplished in the stomach. The stomach was decompressed, the scope was then removed from the patient who tolerated the procedure well. Patient was then turned around, a digital rectal examination was accomplished. The scope was introduced into the rectum and advanced to the cecum as identified by the appendiceal orifice and ileocecal valve. The scope was slowly withdrawn to carefully examine the mucosa for any defects or lesions. Multiple direct views were made through the dentate line for exclusion of pathology. The colon was decompressed scope removed the patient who tolerated the procedure well. Pediatric colonoscope Bowel prep adequate Scope withdrawal time: 11 minutes Sedation minutes: 30 Complications: none Impression: 1. Duodenum: This was normal from the bulb through the 2nd portion. 2. Stomach: No outlet obstruction. There was a small superficial ulcer in the antrum measuring a couple of mm. There was a larger approximately 9 mm ulcer well excavated in the anterior gastric body but well below the diaphragmatic pinchcock. One of the edges was rather heaped up and the ulcer felt somewhat firm. Multiple biopsies were acquired. Hiatal hernia was noted in the retroflexed position. 3. Esophagus: The squamocolumnar junction correlated with the top of the gastric folds. GEJ was at about 35 cm from the incisors. The remainder of the esophagus was unremarkable. 4. Terminal ileum: This was briefly interrogated and appeared normal. 5. Colon: In the ascending colon there was a 2 mm small nonbleeding focus of angiodysplasia which was ablated using a straight fire APC probe at 0.8 liters/minute and 20 w. There were a couple of small possibly hyperplastic polyps removed with cold snare from the rectum. There were some scattered diverticula in the left colon. The patient had grade 2 internal hemorrhoids. Endoscopic diagnosis 1. Large gastric body ulcer 2. Hiatal hernia 3. Ascending colon angiodysplasia status post APC 4. Diverticulosis 5. Diminutive colon polyps 6. Grade 2 hemorrhoids Post-procedure Plan for aftercare: 1. Await histopathology 2. Avoid NSAIDs 3. Continue omeprazole 4. Contingent on histology, surveillance EGD plus or minus EUS will be considered. 5. Repeat colonoscopy 10 years 6. If Helicobacter is found it will need to be eradicated with standard triple therapy.
[2022-01-12 09:47] VITALS: BP 105/63; PULSE 67; RESP 14; TEMP 36.2; O2SAT 98
[2022-01-12 09:52] VITALS: BP 111/66; PULSE 63; RESP 17; O2SAT 98
[2022-01-12 09:57] VITALS: BP 128/72; PULSE 62; RESP 13; O2SAT 100
[2022-01-12 10:02] VITALS: BP 142/75; PULSE 61; RESP 12; O2SAT 98
[2022-01-12 10:07] VITALS: BP 152/83; PULSE 60; RESP 13; TEMP 36.4; O2SAT 100
== END 2022-01-12 10:17 | disposition home or self-care (01) ==
PROVIDERS: PCP Pediatrics; Referring Provider Internal Medicine Gastroenterology; Visit Provider Internal Medicine Gastroenterology
PROC: 0DJ08ZZ Inspection of Upper Intestinal Tract, Via Natural or Artificial Opening Endoscopic (ICD-10-PCS; CPT 43235; principal; 2022-01-12 09:00)
PROC: 0DJD8ZZ Inspection of Lower Intestinal Tract, Via Natural or Artificial Opening Endoscopic (ICD-10-PCS; CPT 45378; 2022-01-12 09:00)
DX: K59.00 Constipation, unspecified (principal); D50.9 Iron deficiency anemia, unspecified; K21.9 Gastro-esophageal reflux disease without esophagitis; K64.1 Second degree hemorrhoids; K57.30 Diverticulosis of large intestine without perforation or abscess without bleeding; K55.20 Angiodysplasia of colon without hemorrhage; K44.9 Diaphragmatic hernia without obstruction or gangrene; K29.50 Unspecified chronic gastritis without bleeding; K62.1 Rectal polyp
CPT/HCPCS: 45388; 45385; 43239; J2704

== ENCOUNTER → 2024-01-24 16:31 | Outpatient (CLI) | payer OTHER, SELFPAY ==
--- NOTE | 2024-01-24 16:46 | DI.RAD.S_ITS ---
PROCEDURE: XR HIP W PEL IF DONE LT 2V INDICATIONS: L hip strain TECHNIQUE: AP pelvis with lateral view(s) of the left hip(s). COMPARISON: None. FINDINGS: Bones: There are no osseous abnormalities. SI and hip joints: Mild degenerative change present in both SI and hip joints. Moderate L4-5 and L5-S1 degenerative disease also noted Soft tissues: An 8 mm calcification is seen in the right L4 1st spinous region IMPRESSION: Degeneration 8 mm calcification right paraspinous region. This is likely benign calcified granuloma. Renal stone possible less likely Dictated by: Rachid Jarvis M.D. on 01/25/2024 at 9:58 Approved by: Rachid Jarvis M.D. on 01/25/2024 at 9:59
[2024-01-24 18:37] LABS: Add Manual Diff / Slide Review NO; Basophils Absolute Auto 0 /uL (0-100); Basophils Percent Auto 0.6 % (0-2); Eosinophils Absolute Auto 100 /uL (0-450); Hematocrit 35.4 % (36-46); Lymphocytes Absolute Auto 1700 /uL (1100-4500); Lymphocytes Percent Auto 25.2 % (25-40); Mean Corpuscular HGB Conc 34.1 % (30-36); Mean Corpuscular Hemoglobin 32.4 PG (26-34); Mean Corpuscular Volume 95.1 fL (80-100); Monocytes Absolute Auto 400 /uL (0-900); Monocytes Percent Auto 6.5 % (3-14); Neutrophils Absolute Auto 4500 /uL (1500-7000); Neutrophils Percent Auto 66.7 % (50-75); Platelet Count 281 X10^3/uL (150-400); Red Blood Cell Count 3.72 X10^6/uL (4.0-5.2); Red Cell Distribution Width 13.6 % (11.6-14.8); White Blood Cell Count 6.8 X10^3/uL (4.5-11.0)
[2024-01-24 18:41] LABS: TSH w/ Reflex to FT4 2.94 uIU/mL (0.47-4.68)
[2024-01-24 18:47] LABS: Alanine Aminotransferase 15 IU/L (<35); Albumin 4.5 g/dL (3.5-5.0); Albumin Globulin Ratio 1.2 (1.0-2.8); Alkaline Phosphatase 112 U/L (38-126); Aspartate Aminotransferase 25 IU/L (14-36); BUN Creatinine Ratio 19.3 (6-22); Bilirubin Total 0.5 mg/dL (0.2-1.3); Blood Urea Nitrogen 11 mg/dL (7-17); Calcium 9.6 mg/dL (8.4-10.2); Carbon Dioxide 24 mmol/L (22-32); Chloride 97 mmol/L (98-107); Estimated Glomerular Filt Rate > 60 mL/min (>60); Globulin 3.7 g/dL (1.7-4.1); Glucose 78 mg/dL (80-110); HEMOLYSIS < 15 (0-50); Potassium 3.9 mmol/L (3.4-5.1); Sodium 132 mmol/L (137-145); Total Protein 8.2 g/dL (6.3-8.2)
[2024-01-24 19:23] LABS: Ferritin 17 ng/mL (11-264)
== END ==
PROVIDERS: PCP Family Medicine; Referring Provider Physician Assistant; Visit Provider Physician Assistant
DX: R42 Dizziness and giddiness (principal); D64.9 Anemia, unspecified; S76.012A Strain of muscle, fascia and tendon of left hip, initial encounter; M25.552 Pain in left hip
CPT/HCPCS: 73502; 80053; 82728; 84443; 85025

== ENCOUNTER 2024-04-23 10:45 | Outpatient (RCR) | payer OTHER, SELFPAY ==
--- NOTE | 2024-02-28 16:53 | PT.OIE ---
Current Diagnoses Unilateral primary osteoarthritis, left hip (02/28/24) Past Medical History (Last Updated 02/15/24 @ 16:08 by Darrel Baker DO) Acid reflux Bruises easily Cataract (2012) Chicken pox (1949) Colon polyps (2013) Constipation Constipation Dizziness Dupuytren's disease (~1989) Former smoker GERD (gastroesophageal reflux disease) History of headache History of palpitations Hyperlipidemia Mumps (1952) Osteoporosis (12/18/15) Pre-diabetes Recurrent UTI Past Surgical History (Last Reviewed 08/30/22 @ 10:12 by Darrel Baker DO) Anesthesia History of cataract removal with insertion of prosthetic lens (2012) History of colonoscopy with polypectomy (2013) Status post delivery (1987) Visit Care Team Role Provider Type Darrel Baker DO Family Provider Physician Primary Care Provider Specialty: Family Practice Address: [address] [place] [address] Email: [email or web address] Marline Gardner PA-C Attending Provider Advanced Sampler And Test Preparer Referring Provider Specialty: Medical Wound Care Address: [address] [place] [address], [facility] Email: [email or web address] Physical Therapy Initial Evaluation PT-OP-A Visit Information Start: 02/28/24 08:06 Freq: Status: Active Protocol: Document 02/28/24 08:07 [facility] (Rec: 02/28/24 09:03 [facility] [id number]) Out-Patient Physical Therapy Visit Information Visit Information Visit Type Initial Evaluation Visit Start Time 08:15 Visit Stop Time 09:02 Visit Number 1 Evaluation Information Evaluation Date 02/28/24 PT-OP-B Current Condition Start: 02/28/24 08:06 Freq: Status: Active Protocol: Document 02/28/24 08:07 SAK (Rec: 02/28/24 09:03 [facility] [id number]) Current Condition History of Current Condition Onset Date Dec 12 Current Complaints hip pain L History of Current Condition Carrying something heavy, gradual onset of pain by evening, sharp pain lateral left hip. Used a cane for awhile. Has improved quite a bit, reports right also bothersome, possibly due to compensation especially after a lot of walking yesterday. x -ray: mild OA vaishali hips and SI, spondylosis lumbar spine. No exercise besides walking. Pain worse in the evening, especially after standing a long time. No orthotics in shoe. Has taken Naproxen, not currently using. History of fall on stairs several years ago. Some dizziness when first lays down, and when first sits up. Prior Treatments and Tests none Treatment Goals Patient/Caregiver Goals Be able to do normal activities, walk at normal speed, keep up with friends, improve strength. Prior Functional Status Baseline Function- ADL's Independent Baseline Function- Mobility Independent Baseline Function- Gait no Baseline Function- Recreation/Hobbies gardening Current Functional Impairments (Reported) Functional Limitations- ADL's painful standing Functional Limitations- Mobility/Gait painful Functional Limitations- Recreation/ painful Hobbies PT-OP-C Subjective Start: 02/28/24 08:06 Freq: Status: Active Protocol: Document 02/28/24 08:07 [facility] (Rec: 02/28/24 09:03 [facility] [id number]) Patient Questionnaires Lower Extremity Functional Scale LEFS Score 56% OP-PT Pain Assessment Location left hip pain Pain Location Details left and right hip lateral Intensity 7 Scale Used Numeric (0 - 10) Description Aching,Sharp Home Pain Medication Use Pain Medications Used No PT-OP-D Balance Start: 02/28/24 08:06 Freq: Status: Active Protocol: Document 02/28/24 08:07 [facility] (Rec: 02/28/24 09:03 [facility] [id number]) Balance Tests Single Limb Standing Single Limb- Right unable without help Single Limb- Left unable without help Tandem Tandem Standing unable without help PT-OP-G Mobility & Gait Start: 02/28/24 08:06 Freq: Status: Active Protocol: Document 02/28/24 08:07 [facility] (Rec: 02/28/24 09:03 [facility] [id number]) OP Mobility Evaluation Transfers Sit to Stand painful in hips OP Gait Assessment Gait Gait Assistance Required: Independent Assistive Devices Assistive Device None Gait Deviations General Gait Pattern Antalgic,Ataxic,Decreased Feet Clearance Factors Limiting Gait Function Factors Limiting Gait Function Decreased Strength,Pain Stair Climbing Evaluation Technique/Endurance Stair Climbing Direction Ascend and Descend Stair Climbing Technique Step to Step Comments Stair Climbing Comments requires railing PT-OP-H Neuro Start: 02/28/24 08:06 Freq: Status: Active Protocol: Document 02/28/24 08:07 [facility]AK (Rec: 02/28/24 16:52 [facility]AK [id number]) Sensation Evaluation Gross Sensation Gross Sensation WNL PT-OP-J Posture/Palpation/Skin Start: 02/28/24 08:06 Freq: Status: Active Protocol: Document 02/28/24 08:07 [facility]AK (Rec: 02/28/24 09:03 [facility] [id number]) Posture Evaluation Position Standing Head/C-Spine Posture Forward Head T-Spine Posture Increased Kyphosis Shoulder Posture (L) Rounded,(R) Rounded Knee Posture (L) Genu Valgus Palpation Assessment Location greater trochanter Palpation Location left Palpation Findings Tenderness PT-OP-K Range of Motion Start: 02/28/24 08:06 Freq: Status: Active Protocol: Document 02/28/24 08:07 SAK (Rec: 02/28/24 16:52 SAK [id number]) Lumbar Spine Range of Motion Lumbar Spine Active Testing Position Standing Comments mod decrease all motions with c/o tightness Hip Goniometric Range of Motion Hip Left Hip ROM WFL No Flexion w/Knee Flexed 110 Straight Leg Raise 80 Extension 0 Abduction 35 Internal Rotation 20 External Rotation 40 Right Hip ROM WFL No Flexion w/Knee Flexed 110 Straight Leg Raise 75 Extension 0 Abduction 35 Internal Rotation 25 External Rotation 30 PT-OP-M Strength Start: 02/28/24 08:06 Freq: Status: Active Protocol: Document 02/28/24 08:07 SAK (Rec: 02/28/24 09:03 [facility]AK [id number]) Trunk Strength Trunk Manual Muscle Testing Flexion 3- Fair- Extension 3- Fair- Hip Strength Hip Manual Muscle Testing Left Flexion (L2) 3+ Fair+ Extension (S1) 3- Fair- Abduction 3+ Fair+ External Rotation 3+ Fair+ Internal Rotation 4 Good Right Flexion (L2) 3+ Fair+ Extension (S1) 3- Fair- Abduction 3+ Fair+ External Rotation 3+ Fair+ Internal Rotation 4 Good Knee Strength Knee Manual Muscle Testing vaishali Flexion (S2) 4 Good Extension (L3) 4 Good PT-OP-Q Treatments Start: 02/28/24 08:06 Freq: Status: Active Protocol: Document 02/28/24 08:07 [facility]AK (Rec: 02/28/24 16:52 [facility] [id number]) Self-Care/Home Management Treatment Education Patient Education Home Exercise Program PT-OP-T Assessment and Plan Start: 02/28/24 08:06 Freq: Status: Active Protocol: Document 02/28/24 08:07 CHEN (Rec: 02/28/24 09:03 [facility] [id number]) Physical Therapy Assessment Rehab Potential Rehabilitation Potential Good Evaluation Complexity Number of Personal Factors/Comorbidities 1-2 Number of Body Systems Impaired 3 Clinical Presentation at Evaluation Stable Impairments Impairments Activity Tolerance,Gait,Pain, ROM,Strength Goals One Impairment pain left hip Assessment Summary Assessment Patient presents to PT with function-limiting pain, antalgic gait due to left hip pain which she reports resulted from carrying heavy objects for a yard sale. Pain has improved some but persists and limits her ability to do her usual activities including going for walks and gardening. Patient reports no exercise other than walking and gardening. Hasn't tried ice or heat, took medications for awhile. Patient has significant weakness throughout her hips and core and has scoliosis of spine. ADditionally she has poor balance, unable to stand on 1 foot or do tandem stand without UE support. FEel she will benefit from PT for strengthening, balance training, gait training, pain management to help her return to her prior level of function . POC was discussed and patient was in agreement. Physical Therapy Plan Frequency and Duration Frequency of Treatment 2x/Week Duration of treatment (weeks) 8 Plan of Care Start Date 02/28/24 Plan of Care End Date 04/29/24 Therapeutic Interventions Therapeutic Interventions Gait Training,Home Exercise Program,Joint Mobilizations, Manual Therapy,Patient/ Caregiver Education,Self-Care/ Home Management,Soft Tissue Mobilization,Taping, Therapeutic Activities, Therapeutic Exercises Modalities Cold Pack/Ice Massage,Electric Stimulation,Hot Packs, Infrared Therapy,Iontophoresis ,Ultrasound Next Visit Focus/Plan Next Note Type Treatment Note Next Visit Plan Start with recumbant elliptical. REview HEP, trial gait on stairs, shuttle leg press and consider adding sit to stand to HEP. Modalities and manual therapy PRN pain.
--- NOTE | 2024-02-28 16:53 | PT.OPPOC ---
Physical, Occupational & Speech Therapy At [facility] Current Diagnoses Unilateral primary osteoarthritis, left hip (02/28/24) Visit Care Team Role Provider Type Darrel Baker DO Family Provider Physician Primary Care Provider Specialty: Family Practice Address: [address] [place] [address], [id number] Email: [email or web address] Marline Gardner PA-C Attending Provider Advanced Blanching Machine Operator Referring Provider Specialty: Medical Wound Care Address: [address] [place] [address], [id number] Email: [email or web address] Plan Of Care PT-OP-B Current Condition Start: 02/28/24 08:06 Freq: Status: Active Protocol: Document 02/28/24 08:07 CHEN (Rec: 02/28/24 09:03 [facility] [id number]) Current Condition History of Current Condition Onset Date Dec 12 Current Complaints hip pain L History of Current Condition Carrying something heavy, gradual onset of pain by evening, sharp pain lateral left hip. Used a cane for awhile. Has improved quite a bit, reports right also bothersome, possibly due to compensation especially after a lot of walking yesterday. x -ray: mild OA vaishali hips and SI, spondylosis lumbar spine. No exercise besides walking. Pain worse in the evening, especially after standing a long time. No orthotics in shoe. Has taken Naproxen, not currently using. History of fall on stairs several years ago. Some dizziness when first lays down, and when first sits up. Prior Treatments and Tests none Treatment Goals Patient/Caregiver Goals Be able to do normal activities, walk at normal speed, keep up with friends, improve strength. Prior Functional Status Baseline Function- ADL's Independent Baseline Function- Mobility Independent Baseline Function- Gait no Baseline Function- Recreation/Hobbies gardening Current Functional Impairments (Reported) Functional Limitations- ADL's painful standing Functional Limitations- Mobility/Gait painful Functional Limitations- Recreation/ painful Hobbies PT-OP-T Assessment and Plan Start: 02/28/24 08:06 Freq: Status: Active Protocol: Document 02/28/24 08:07 CHEN (Rec: 02/28/24 09:03 [facility] [id number]) Physical Therapy Assessment Rehab Potential Rehabilitation Potential Good Evaluation Complexity Number of Personal Factors/Comorbidities 1-2 Number of Body Systems Impaired 3 Clinical Presentation at Evaluation Stable Impairments Impairments Activity Tolerance,Gait,Pain, ROM,Strength Goals One Impairment pain left hip Assessment Summary Assessment Patient presents to PT with function-limiting pain, antalgic gait due to left hip pain which she reports resulted from carrying heavy objects for a yard sale. Pain has improved some but persists and limits her ability to do her usual activities including going for walks and gardening. Patient reports no exercise other than walking and gardening. Hasn't tried ice or heat, took medications for awhile. Patient has significant weakness throughout her hips and core and has scoliosis of spine. ADditionally she has poor balance, unable to stand on 1 foot or do tandem stand without UE support. FEel she will benefit from PT for strengthening, balance training, gait training, pain management to help her return to her prior level of function . POC was discussed and patient was in agreement. Physical Therapy Plan Frequency and Duration Frequency of Treatment 2x/Week Duration of treatment (weeks) 8 Plan of Care Start Date 02/28/24 Plan of Care End Date 04/29/24 Therapeutic Interventions Therapeutic Interventions Gait Training,Home Exercise Program,Joint Mobilizations, Manual Therapy,Patient/ Caregiver Education,Self-Care/ Home Management,Soft Tissue Mobilization,Taping, Therapeutic Activities, Therapeutic Exercises Modalities Cold Pack/Ice Massage,Electric Stimulation,Hot Packs, Infrared Therapy,Iontophoresis ,Ultrasound Next Visit Focus/Plan Next Note Type Treatment Note Next Visit Plan Start with recumbant elliptical. REview HEP, trial gait on stairs, shuttle leg press and consider adding sit to stand to HEP. Modalities and manual therapy PRN pain. Plan of Care Dates Plan of Care Start Date 02/28/24 Plan of Care End Date 04/29/24 Electronically Signed by: Wendy Richardson, PT 02/28/24 5778 If you are in agreement with this Plan of Care, please return a signed and dated copy. I have reviewed this Plan of Care and certify that the skilled therapy services above are required to meet the patient?s needs. Physician Signature Date Printed Name and Credentials Clinical Instructor Signature Printed Name and Credentials
--- NOTE | 2024-03-08 17:12 | PT.OTN ---
Current Diagnoses Unilateral primary osteoarthritis, left hip (03/08/24) Physical Therapy Treatment Note PT-OP-A Visit Information Start: 02/28/24 08:06 Freq: Status: Active Protocol: Document 03/08/24 13:07 NBM (Rec: 03/08/24 14:00 NBM [id number]) Out-Patient Physical Therapy Visit Information Visit Information Visit Type Treatment Note Visit Start Time 13:07 Visit Stop Time 13:58 Visit Number 2 Number of CONVICT GUARD Visits 1 Evaluation Information Evaluation Date 02/28/24 PT-OP-B Current Condition Start: 02/28/24 08:06 Freq: Status: Active Protocol: Document 02/28/24 08:07 SAK (Rec: 02/28/24 09:03 SAK [id number]) Current Condition History of Current Condition Onset Date Dec 12 Current Complaints hip pain L History of Current Condition Carrying something heavy, gradual onset of pain by evening, sharp pain lateral left hip. Used a cane for awhile. Has improved quite a bit, reports right also bothersome, possibly due to compensation especially after a lot of walking yesterday. x -ray: mild OA vaishali hips and SI, spondylosis lumbar spine. No exercise besides walking. Pain worse in the evening, especially after standing a long time. No orthotics in shoe. Has taken Naproxen, not currently using. History of fall on stairs several years ago. Some dizziness when first lays down, and when first sits up. Prior Treatments and Tests none Treatment Goals Patient/Caregiver Goals Be able to do normal activities, walk at normal speed, keep up with friends, improve strength. Prior Functional Status Baseline Function- ADL's Independent Baseline Function- Mobility Independent Baseline Function- Gait no Baseline Function- Recreation/Hobbies gardening Current Functional Impairments (Reported) Functional Limitations- ADL's painful standing Functional Limitations- Mobility/Gait painful Functional Limitations- Recreation/ painful Hobbies PT-OP-C Subjective Start: 02/28/24 08:06 Freq: Status: Active Protocol: Document 03/08/24 13:07 NBM (Rec: 03/08/24 14:00 NBM [id number]) OP-PT Subjective Patient Comments Patient Comments Lindsay reports no hip pain currently. She's been doing exercises and has difficulties with the bridge, but she tries to do it every day. PT-OP-D Balance Start: 02/28/24 08:06 Freq: Status: Active Protocol: Document 02/28/24 08:07 SAK (Rec: 02/28/24 09:03 [facility] [id number]) Balance Tests Single Limb Standing Single Limb- Right unable without help Single Limb- Left unable without help Tandem Tandem Standing unable without help PT-OP-G Mobility & Gait Start: 02/28/24 08:06 Freq: Status: Active Protocol: Document 02/28/24 08:07 SAK (Rec: 02/28/24 09:03 SAK [id number]) OP Mobility Evaluation Transfers Sit to Stand painful in hips OP Gait Assessment Gait Gait Assistance Required: Independent Assistive Devices Assistive Device None Gait Deviations General Gait Pattern Antalgic,Ataxic,Decreased Feet Clearance Factors Limiting Gait Function Factors Limiting Gait Function Decreased Strength,Pain Stair Climbing Evaluation Technique/Endurance Stair Climbing Direction Ascend and Descend Stair Climbing Technique Step to Step Comments Stair Climbing Comments requires railing PT-OP-H Neuro Start: 02/28/24 08:06 Freq: Status: Active Protocol: Document 02/28/24 08:07 SAK (Rec: 02/28/24 16:52 [facility] [id number]) Sensation Evaluation Gross Sensation Gross Sensation WNL PT-OP-J Posture/Palpation/Skin Start: 02/28/24 08:06 Freq: Status: Active Protocol: Document 02/28/24 08:07 SAK (Rec: 02/28/24 09:03 [facility] [id number]) Posture Evaluation Position Standing Head/C-Spine Posture Forward Head T-Spine Posture Increased Kyphosis Shoulder Posture (L) Rounded,(R) Rounded Knee Posture (L) Genu Valgus Palpation Assessment Location greater trochanter Palpation Location left Palpation Findings Tenderness PT-OP-K Range of Motion Start: 02/28/24 08:06 Freq: Status: Active Protocol: Document 02/28/24 08:07 SAK (Rec: 02/28/24 16:52 [facility] [id number]) Lumbar Spine Range of Motion Lumbar Spine Active Testing Position Standing Comments mod decrease all motions with c/o tightness Hip Goniometric Range of Motion Hip Left Hip ROM WFL No Flexion w/Knee Flexed 110 Straight Leg Raise 80 Extension 0 Abduction 35 Internal Rotation 20 External Rotation 40 Right Hip ROM WFL No Flexion w/Knee Flexed 110 Straight Leg Raise 75 Extension 0 Abduction 35 Internal Rotation 25 External Rotation 30 PT-OP-M Strength Start: 02/28/24 08:06 Freq: Status: Active Protocol: Document 02/28/24 08:07 SAK (Rec: 02/28/24 09:03 SAK [id number]) Trunk Strength Trunk Manual Muscle Testing Flexion 3- Fair- Extension 3- Fair- Hip Strength Hip Manual Muscle Testing Left Flexion (L2) 3+ Fair+ Extension (S1) 3- Fair- Abduction 3+ Fair+ External Rotation 3+ Fair+ Internal Rotation 4 Good Right Flexion (L2) 3+ Fair+ Extension (S1) 3- Fair- Abduction 3+ Fair+ External Rotation 3+ Fair+ Internal Rotation 4 Good Knee Strength Knee Manual Muscle Testing vaishlai Flexion (S2) 4 Good Extension (L3) 4 Good PT-OP-Q Treatments Start: 02/28/24 08:06 Freq: Status: Active Protocol: Document 03/08/24 13:07 NBM (Rec: 03/08/24 14:00 NBM [id number]) Cardio Equipment Recumbent Elliptical (BiodSpinal Simplicity) Duration (Minutes) 6 Resistance 1 Seat Position 7 seen Other LEs only, initial hip discomfort resolves. Gym Equipment Shuttle Recovery Unilateral Details cued LLE alignment d/t knee valgus Resistance 25# Shuttle Recovery Platform Stable Reps/Time x10 ea Bilateral Details cued LE alignment, no knee lockout Resistance 50# Shuttle Recovery Platform Stable Reps/Time x10 Therapeutic Exercises Supine Exercises bridging Supine Exercise Name segmental w/ TrA, PPT - HEP review Side bilateral Reps/Minutes x10 Comments cued feet closer to buttocks, breath SLR Supine Exercise Name HEP review next session hip abduction Supine Exercise Name clamshell - HEP Side bilateral Resistance Lvl 2 Tb Reps/Minutes x10 Comments cues for TrA, breathwork hip adduction Supine Exercise Name w/ TrA - HEP Side bilateral Equipment Used small blue/white ball Reps/Minutes 10x 2 breathcycles (5) Comments pt self-corrects for TrA activation. Neuro Re-Education Treatment Balance Activities SLS Surface vaishali Equipment handrail prn Reps/Duration 5x10s ea Comments 2 COUNSELOR AIDE>2x 2-finger touch challenging, improves w/ cues for gluteal activation and upright posture. Pt notes R hip discofort w/ RLE stance. tandem Details 1. Balance Surface firm Equipment handrail prn Reps/Duration 2x30s ea Comments challenging, improves w/ cues for gluteal activation and upright posture. PT-OP-T Assessment and Plan Start: 02/28/24 08:06 Freq: Status: Active Protocol: Document 03/08/24 13:07 [facility] (Rec: 03/08/24 14:00 [facility] [id number]) Physical Therapy Assessment Goals One Impairment pain left hip Assessment Summary Assessment Treatment focus on HEP review for LE and core strenghtening and balance. Lindsay requires cues for gluteal activation and upright posture with balance ex's. She is educated on TrA anatomy with visual aids and importance of not breathholding w/ HEP, and demos improved self-awarness and self-corrects for TrA activation with hip adduction exercise. She is able to perform bridging pain-free with cues for foot positioning , TrA activation and breath. Physical Therapy Plan Frequency and Duration Frequency of Treatment 2x/Week Duration of treatment (weeks) 8 Plan of Care Start Date 02/28/24 Plan of Care End Date 04/29/24 Therapeutic Interventions Therapeutic Interventions Gait Training,Home Exercise Program,Joint Mobilizations, Manual Therapy,Patient/ Caregiver Education,Self-Care/ Home Management,Soft Tissue Mobilization,Taping, Therapeutic Activities, Therapeutic Exercises Modalities Cold Pack/Ice Massage,Electric Stimulation,Hot Packs, Infrared Therapy,Iontophoresis ,Ultrasound Next Visit Focus/Plan Next Note Type Treatment Note Next Visit Plan Start with recumbant elliptical. REview HEP, consider adding sit to stand to HEP; trial gait on stairs, shuttle leg press. Modalities and manual therapy PRN pain.
--- NOTE | 2024-03-11 08:59 | PT.OTN ---
Current Diagnoses Unilateral primary osteoarthritis, left hip (03/11/24) Physical Therapy Treatment Note PT-OP-A Visit Information Start: 02/28/24 08:06 Freq: Status: Active Protocol: Document 03/11/24 08:10 SAK (Rec: 03/11/24 08:55 [facility] [id number]) Out-Patient Physical Therapy Visit Information Visit Information Visit Type Treatment Note Visit Start Time 08:15 Visit Stop Time 08:58 Visit Number 3 Number of IRRIGATION ENGINEER Visits 0 Evaluation Information Evaluation Date 02/28/24 PT-OP-B Current Condition Start: 02/28/24 08:06 Freq: Status: Active Protocol: Document 03/11/24 08:10 SAK (Rec: 03/11/24 08:55 [facility] [id number]) Current Condition History of Current Condition Onset Date Dec 12 Current Complaints hip pain L History of Current Condition Carrying something heavy, gradual onset of pain by evening, sharp pain lateral left hip. Used a cane for awhile. Has improved quite a bit, reports right also bothersome, possibly due to compensation especially after a lot of walking yesterday. x -ray: mild OA vaishali hips and SI, spondylosis lumbar spine. No exercise besides walking. Pain worse in the evening, especially after standing a long time. No orthotics in shoe. Has taken Naproxen, not currently using. History of fall on stairs several years ago. Some dizziness when first lays down, and when first sits up. Prior Treatments and Tests none PT-OP-C Subjective Start: 02/28/24 08:06 Freq: Status: Active Protocol: Document 03/11/24 08:10 SAK (Rec: 03/11/24 08:55 [facility] [id number]) OP-PT Subjective Patient Comments Patient Comments No new c/o, not sure why she limps. PT-OP-D Balance Start: 02/28/24 08:06 Freq: Status: Active Protocol: Document 02/28/24 08:07 SAK (Rec: 02/28/24 09:03 SAK [id number]) Balance Tests Single Limb Standing Single Limb- Right unable without help Single Limb- Left unable without help Tandem Tandem Standing unable without help PT-OP-G Mobility & Gait Start: 02/28/24 08:06 Freq: Status: Active Protocol: Document 02/28/24 08:07 SAK (Rec: 02/28/24 09:03 [facility] [id number]) OP Mobility Evaluation Transfers Sit to Stand painful in hips OP Gait Assessment Gait Gait Assistance Required: Independent Assistive Devices Assistive Device None Gait Deviations General Gait Pattern Antalgic,Ataxic,Decreased Feet Clearance Factors Limiting Gait Function Factors Limiting Gait Function Decreased Strength,Pain Stair Climbing Evaluation Technique/Endurance Stair Climbing Direction Ascend and Descend Stair Climbing Technique Step to Step Comments Stair Climbing Comments requires railing PT-OP-H Neuro Start: 02/28/24 08:06 Freq: Status: Active Protocol: Document 02/28/24 08:07 [facility] (Rec: 02/28/24 16:52 [facility] [id number]) Sensation Evaluation Gross Sensation Gross Sensation WNL PT-OP-J Posture/Palpation/Skin Start: 02/28/24 08:06 Freq: Status: Active Protocol: Document 02/28/24 08:07 CHEN (Rec: 02/28/24 09:03 [facility] [id number]) Posture Evaluation Position Standing Head/C-Spine Posture Forward Head T-Spine Posture Increased Kyphosis Shoulder Posture (L) Rounded,(R) Rounded Knee Posture (L) Genu Valgus Palpation Assessment Location greater trochanter Palpation Location left Palpation Findings Tenderness PT-OP-K Range of Motion Start: 02/28/24 08:06 Freq: Status: Active Protocol: Document 02/28/24 08:07 CHEN (Rec: 02/28/24 16:52 [facility] [id number]) Lumbar Spine Range of Motion Lumbar Spine Active Testing Position Standing Comments mod decrease all motions with c/o tightness Hip Goniometric Range of Motion Hip Left Hip ROM WFL No Flexion w/Knee Flexed 110 Straight Leg Raise 80 Extension 0 Abduction 35 Internal Rotation 20 External Rotation 40 Right Hip ROM WFL No Flexion w/Knee Flexed 110 Straight Leg Raise 75 Extension 0 Abduction 35 Internal Rotation 25 External Rotation 30 PT-OP-M Strength Start: 02/28/24 08:06 Freq: Status: Active Protocol: Document 02/28/24 08:07 SAK (Rec: 02/28/24 09:03 [facility] [id number]) Trunk Strength Trunk Manual Muscle Testing Flexion 3- Fair- Extension 3- Fair- Hip Strength Hip Manual Muscle Testing Left Flexion (L2) 3+ Fair+ Extension (S1) 3- Fair- Abduction 3+ Fair+ External Rotation 3+ Fair+ Internal Rotation 4 Good Right Flexion (L2) 3+ Fair+ Extension (S1) 3- Fair- Abduction 3+ Fair+ External Rotation 3+ Fair+ Internal Rotation 4 Good Knee Strength Knee Manual Muscle Testing vaishali Flexion (S2) 4 Good Extension (L3) 4 Good PT-OP-Q Treatments Start: 02/28/24 08:06 Freq: Status: Active Protocol: Document 03/11/24 08:10 [facility] (Rec: 03/11/24 08:55 [facility] [id number]) Cardio Equipment Recumbent Elliptical ([employer]) Duration (Minutes) 7 Resistance 1 Seat Position 7 seen Other LEs only, initial hip discomfort resolves. Gym Equipment Shuttle Recovery Unilateral Details cued LLE alignment d/t knee valgus Resistance 25# Shuttle Recovery Platform Stable Reps/Time x10 ea Bilateral Details cued LE alignment, no knee lockout Resistance 50# Shuttle Recovery Platform Stable Reps/Time x10 Therapeutic Exercises Supine Exercises bridging Supine Exercise Name segmental w/ TrA, PPT - HEP review Side bilateral Reps/Minutes x10 Comments cued breath control SLR Reps/Minutes 8x Comments cues for core stab, breath hip abduction Supine Exercise Name clamshell - HEP Side bilateral Resistance Lvl 2 Tb Reps/Minutes x10 Comments cues for TrA, breathwork Standing Exercises resisted sidestepping Resistance L1 TB Reps/Minutes [address] chair squat Equipment Used mirror Reps/Minutes 6x Comments cues for LE alignment Gait Training Gait Activity mirror Device Used none Surface firm Treatment Focus upright posture, gluteal activation, no hip drop Comments mirror for visual feedback Neuro Re-Education Treatment Balance Activities SLS Surface vaishali Equipment handrail prn Reps/Duration 5x10s ea Comments 2 DRIFTMAN>2x 2-finger touch challenging, improves w/ cues for gluteal activation and upright posture. Pt notes R hip discofort w/ RLE stance. tandem Details 1. Balance Surface firm Equipment handrail prn Reps/Duration 2x30s ea Comments challenging, improves w/ cues for gluteal activation and upright posture. PT-OP-T Assessment and Plan Start: 02/28/24 08:06 Freq: Status: Active Protocol: Document 03/11/24 08:10 SAK (Rec: 03/11/24 08:55 [facility] [id number]) Physical Therapy Assessment Impairments Impairments Activity Tolerance,Gait,Pain, ROM,Strength Goals Two Impairment balance dysfunction unable to stand on 1 foot Short Term Goal (STG) Patient able to stand on 1 foot for at least 5 sec STG Duration 03/29/24 [facility] Goal (LTG) Patient able to stand on 1 foot for at least 10 sec as measure of improved stability and decreased fall risk. One Impairment pain left hip Short Term Goal (STG) decrease pain by at least 50% with all lusual activities STG Duration 03/29/24 [facility] Goal (LTG) decrease pain by at least 75% with all usual activities in home and the commlunity. LTG Duration 04/29/24 Progress Towards Goals Progress Towards Goals Progressing Toward Goals Assessment Summary Assessment Progressed HEP with resisted sidestepping, reviewed HEP with cues for correct performance. Use of mirror for visual feedback with gait with cues for dec lateral lean . Physical Therapy Plan Frequency and Duration Frequency of Treatment 2x/Week Duration of treatment (weeks) 8 Plan of Care Start Date 02/28/24 Plan of Care End Date 04/29/24 Therapeutic Interventions Therapeutic Interventions Gait Training,Home Exercise Program,Joint Mobilizations, Manual Therapy,Patient/ Caregiver Education,Self-Care/ Home Management,Soft Tissue Mobilization,Taping, Therapeutic Activities, Therapeutic Exercises Modalities Cold Pack/Ice Massage,Electric Stimulation,Hot Packs, Infrared Therapy,Iontophoresis ,Ultrasound Next Visit Focus/Plan Next Note Type Treatment Note Next Visit Plan Continue progression of ther ex, possibly add chair squat to HEP. Modalities and manual therapy PRN pain.
--- NOTE | 2024-03-13 17:16 | PT.OTN ---
Current Diagnoses Unilateral primary osteoarthritis, left hip (03/13/24) Physical Therapy Treatment Note PT-OP-A Visit Information Start: 02/28/24 08:06 Freq: Status: Active Protocol: Document 03/13/24 13:17 NBM (Rec: 03/13/24 17:15 [facility] [id number]) Out-Patient Physical Therapy Visit Information Visit Information Visit Type Treatment Note Visit Start Time 13:08 Visit Stop Time 13:50 Visit Number 4 Number of RESIDENTIAL SALES MANAGER Visits 1 PT-OP-B Current Condition Start: 02/28/24 08:06 Freq: Status: Active Protocol: Document 03/11/24 08:10 SAK (Rec: 03/11/24 08:55 SAK [id number]) Current Condition History of Current Condition Onset Date Dec 12 Current Complaints hip pain L History of Current Condition Carrying something heavy, gradual onset of pain by evening, sharp pain lateral left hip. Used a cane for awhile. Has improved quite a bit, reports right also bothersome, possibly due to compensation especially after a lot of walking yesterday. x -ray: mild OA vaishali hips and SI, spondylosis lumbar spine. No exercise besides walking. Pain worse in the evening, especially after standing a long time. No orthotics in shoe. Has taken Naproxen, not currently using. History of fall on stairs several years ago. Some dizziness when first lays down, and when first sits up. Prior Treatments and Tests none PT-OP-C Subjective Start: 02/28/24 08:06 Freq: Status: Active Protocol: Document 03/13/24 13:17 NBM (Rec: 03/13/24 17:15 [facility] [id number]) OP-PT Subjective Patient Comments Patient Comments Lindsay reports her hip pain is much better now. She felt sore after last visit but does not think she overdid. PT-OP-D Balance Start: 02/28/24 08:06 Freq: Status: Active Protocol: Document 02/28/24 08:07 SAK (Rec: 02/28/24 09:03 SAK [id number]) Balance Tests Single Limb Standing Single Limb- Right unable without help Single Limb- Left unable without help Tandem Tandem Standing unable without help PT-OP-G Mobility & Gait Start: 02/28/24 08:06 Freq: Status: Active Protocol: Document 02/28/24 08:07 SAK (Rec: 02/28/24 09:03 SAK [id number]) OP Mobility Evaluation Transfers Sit to Stand painful in hips OP Gait Assessment Gait Gait Assistance Required: Independent Assistive Devices Assistive Device None Gait Deviations General Gait Pattern Antalgic,Ataxic,Decreased Feet Clearance Factors Limiting Gait Function Factors Limiting Gait Function Decreased Strength,Pain Stair Climbing Evaluation Technique/Endurance Stair Climbing Direction Ascend and Descend Stair Climbing Technique Step to Step Comments Stair Climbing Comments requires railing PT-OP-H Neuro Start: 02/28/24 08:06 Freq: Status: Active Protocol: Document 02/28/24 08:07 SAK (Rec: 02/28/24 16:52 SAK [id number]) Sensation Evaluation Gross Sensation Gross Sensation WNL PT-OP-J Posture/Palpation/Skin Start: 02/28/24 08:06 Freq: Status: Active Protocol: Document 02/28/24 08:07 SAK (Rec: 02/28/24 09:03 SAK [id number]) Posture Evaluation Position Standing Head/C-Spine Posture Forward Head T-Spine Posture Increased Kyphosis Shoulder Posture (L) Rounded,(R) Rounded Knee Posture (L) Genu Valgus Palpation Assessment Location greater trochanter Palpation Location left Palpation Findings Tenderness PT-OP-K Range of Motion Start: 02/28/24 08:06 Freq: Status: Active Protocol: Document 02/28/24 08:07 SAK (Rec: 02/28/24 16:52 SAK [id number]) Lumbar Spine Range of Motion Lumbar Spine Active Testing Position Standing Comments mod decrease all motions with c/o tightness Hip Goniometric Range of Motion Hip Left Hip ROM WFL No Flexion w/Knee Flexed 110 Straight Leg Raise 80 Extension 0 Abduction 35 Internal Rotation 20 External Rotation 40 Right Hip ROM WFL No Flexion w/Knee Flexed 110 Straight Leg Raise 75 Extension 0 Abduction 35 Internal Rotation 25 External Rotation 30 PT-OP-M Strength Start: 02/28/24 08:06 Freq: Status: Active Protocol: Document 02/28/24 08:07 SAK (Rec: 02/28/24 09:03 SAK [id number]) Trunk Strength Trunk Manual Muscle Testing Flexion 3- Fair- Extension 3- Fair- Hip Strength Hip Manual Muscle Testing Left Flexion (L2) 3+ Fair+ Extension (S1) 3- Fair- Abduction 3+ Fair+ External Rotation 3+ Fair+ Internal Rotation 4 Good Right Flexion (L2) 3+ Fair+ Extension (S1) 3- Fair- Abduction 3+ Fair+ External Rotation 3+ Fair+ Internal Rotation 4 Good Knee Strength Knee Manual Muscle Testing vaishali Flexion (S2) 4 Good Extension (L3) 4 Good PT-OP-Q Treatments Start: 02/28/24 08:06 Freq: Status: Active Protocol: Document 03/13/24 13:17 NBM (Rec: 03/13/24 17:15 [facility] [id number]) Cardio Equipment Recumbent Elliptical ([employer]) Duration (Minutes) 6 Resistance 2 Seat Position 7 seen Other LEs only Gym Equipment Shuttle Recovery Unilateral Details cued LLE alignment d/t knee valgus Resistance 25# Shuttle Recovery Platform Stable Reps/Time x10 ea Bilateral Details cued LE alignment, no breathholding Resistance 50# Shuttle Recovery Platform Stable Reps/Time x10 Therapeutic Exercises Standing Exercises resisted sidestepping Resistance L1 TB ankles>above knees Reps/Minutes 2x10 Comments cues for smaller range, no scuffing, ecc control,upright posture,square h chair squat Equipment Used mirror Reps/Minutes 7x Comments cues for LE alignment Gait Training Gait Activity mirror Device Used none Surface firm Distance/Duration 2x20 ft Treatment Focus upright posture, gluteal activation, no hip drop Comments mirror for visual feedback Neuro Re-Education Treatment Balance Activities SLS Surface vaishali Equipment handrail prn Reps/Duration 30s ea Comments 2x 2-finger touch, improves w/ cues for gluteal activation and upright posture. tandem Details 1. Balance Surface firm Equipment handrail prn Reps/Duration 30s ea Comments challenging, improves w/ cues for gluteal activation and upright posture. Self-Care/Home Management Treatment Education Patient Education Body Mechanics,Home Exercise Program,Posture Other Education Pt to use firmer seat than her big easy chair to avoid shortening hip flexors- added chair squats to HEP. PT-OP-T Assessment and Plan Start: 02/28/24 08:06 Freq: Status: Active Protocol: Document 03/13/24 13:17 NBM (Rec: 03/13/24 17:15 [facility] [id number]) Physical Therapy Assessment Goals Two Impairment balance dysfunction unable to stand on 1 foot Short Term Goal (STG) Patient able to stand on 1 foot for at least 5 sec STG Duration 03/29/24 [facility] Goal (LTG) Patient able to stand on 1 foot for at least 10 sec as measure of improved stability and decreased fall risk. One Impairment pain left hip Short Term Goal (STG) decrease pain by at least 50% with all lusual activities STG Duration 03/29/24 [employer] Goal (LTG) decrease pain by at least 75% with all usual activities in home and the commlunity. LTG Duration 04/29/24 Assessment Summary Assessment Treatment focus on hip strengthening and hip flexor stretching. Resisted sidesteps are too challenging w/ Lvl 1 Tb at ankles. Modified to above knees with cues for smaller range, no scuffing, ecc control,upright posture, square hips, and pt demos improved self-awareness and self-corrections with repetition. Added to HEP: chair squat and hip flexor stretch in lunge position - HO given. Physical Therapy Plan Frequency and Duration Frequency of Treatment 2x/Week Duration of treatment (weeks) 8 Plan of Care Start Date 02/28/24 Plan of Care End Date 04/29/24 Therapeutic Interventions Therapeutic Interventions Gait Training,Home Exercise Program,Joint Mobilizations, Manual Therapy,Patient/ Caregiver Education,Self-Care/ Home Management,Soft Tissue Mobilization,Taping, Therapeutic Activities, Therapeutic Exercises Modalities Cold Pack/Ice Massage,Electric Stimulation,Hot Packs, Infrared Therapy,Iontophoresis ,Ultrasound Next Visit Focus/Plan Next Note Type Treatment Note Next Visit Plan Continue progression of ther ex, possibly add chair squat to HEP. Modalities and manual therapy PRN pain.
--- NOTE | 2024-03-20 12:06 | PT.OTN ---
Current Diagnoses Unilateral primary osteoarthritis, left hip (03/20/24) Physical Therapy Treatment Note PT-OP-A Visit Information Start: 02/28/24 08:06 Freq: Status: Active Protocol: Document 03/20/24 10:53 NBM (Rec: 03/20/24 12:06 NB [id number]) Out-Patient Physical Therapy Visit Information Visit Information Visit Type Treatment Note Visit Start Time 10:50 Visit Stop Time 11:35 Visit Number 5 Number of STATION [place] Visits 2 Evaluation Information Evaluation Date 02/28/24 PT-OP-B Current Condition Start: 02/28/24 08:06 Freq: Status: Active Protocol: Document 03/11/24 08:10 SAK (Rec: 03/11/24 08:55 SAK [id number]) Current Condition History of Current Condition Onset Date Dec 12 Current Complaints hip pain L History of Current Condition Carrying something heavy, gradual onset of pain by evening, sharp pain lateral left hip. Used a cane for awhile. Has improved quite a bit, reports right also bothersome, possibly due to compensation especially after a lot of walking yesterday. x -ray: mild OA vaishali hips and SI, spondylosis lumbar spine. No exercise besides walking. Pain worse in the evening, especially after standing a long time. No orthotics in shoe. Has taken Naproxen, not currently using. History of fall on stairs several years ago. Some dizziness when first lays down, and when first sits up. Prior Treatments and Tests none PT-OP-C Subjective Start: 02/28/24 08:06 Freq: Status: Active Protocol: Document 03/20/24 10:53 NBM (Rec: 03/20/24 12:06 NBM [id number]) OP-PT Subjective Patient Comments Patient Comments Lindsay reports her hip pain has not been present for several days. She did not do her exercises over the weekend because she was out of town which involved walking around, and her hip was fine. I'm feeling very positive about it . Once in a while she gets a nagging tightening in the L hip, maybe if I sit too much. She has a question about an exercise. She's trying to keep her feet and knees in line. She did a few of the sitting ones this morning. PT-OP-D Balance Start: 02/28/24 08:06 Freq: Status: Active Protocol: Document 02/28/24 08:07 SAK (Rec: 02/28/24 09:03 [facility] [id number]) Balance Tests Single Limb Standing Single Limb- Right unable without help Single Limb- Left unable without help Tandem Tandem Standing unable without help PT-OP-G Mobility & Gait Start: 02/28/24 08:06 Freq: Status: Active Protocol: Document 02/28/24 08:07 SAK (Rec: 02/28/24 09:03 [facility] [id number]) OP Mobility Evaluation Transfers Sit to Stand painful in hips OP Gait Assessment Gait Gait Assistance Required: Independent Assistive Devices Assistive Device None Gait Deviations General Gait Pattern Antalgic,Ataxic,Decreased Feet Clearance Factors Limiting Gait Function Factors Limiting Gait Function Decreased Strength,Pain Stair Climbing Evaluation Technique/Endurance Stair Climbing Direction Ascend and Descend Stair Climbing Technique Step to Step Comments Stair Climbing Comments requires railing PT-OP-H Neuro Start: 02/28/24 08:06 Freq: Status: Active Protocol: Document 02/28/24 08:07 CHEN (Rec: 02/28/24 16:52 [facility] [id number]) Sensation Evaluation Gross Sensation Gross Sensation WNL PT-OP-J Posture/Palpation/Skin Start: 02/28/24 08:06 Freq: Status: Active Protocol: Document 02/28/24 08:07 SAK (Rec: 02/28/24 09:03 [facility] [id number]) Posture Evaluation Position Standing Head/C-Spine Posture Forward Head T-Spine Posture Increased Kyphosis Shoulder Posture (L) Rounded,(R) Rounded Knee Posture (L) Genu Valgus Palpation Assessment Location greater trochanter Palpation Location left Palpation Findings Tenderness PT-OP-K Range of Motion Start: 02/28/24 08:06 Freq: Status: Active Protocol: Document 02/28/24 08:07 SAK (Rec: 02/28/24 16:52 [facility] [id number]) Lumbar Spine Range of Motion Lumbar Spine Active Testing Position Standing Comments mod decrease all motions with c/o tightness Hip Goniometric Range of Motion Hip Left Hip ROM WFL No Flexion w/Knee Flexed 110 Straight Leg Raise 80 Extension 0 Abduction 35 Internal Rotation 20 External Rotation 40 Right Hip ROM WFL No Flexion w/Knee Flexed 110 Straight Leg Raise 75 Extension 0 Abduction 35 Internal Rotation 25 External Rotation 30 PT-OP-M Strength Start: 02/28/24 08:06 Freq: Status: Active Protocol: Document 02/28/24 08:07 SAK (Rec: 02/28/24 09:03 SAK [id number]) Trunk Strength Trunk Manual Muscle Testing Flexion 3- Fair- Extension 3- Fair- Hip Strength Hip Manual Muscle Testing Left Flexion (L2) 3+ Fair+ Extension (S1) 3- Fair- Abduction 3+ Fair+ External Rotation 3+ Fair+ Internal Rotation 4 Good Right Flexion (L2) 3+ Fair+ Extension (S1) 3- Fair- Abduction 3+ Fair+ External Rotation 3+ Fair+ Internal Rotation 4 Good Knee Strength Knee Manual Muscle Testing vaishali Flexion (S2) 4 Good Extension (L3) 4 Good PT-OP-Q Treatments Start: 02/28/24 08:06 Freq: Status: Active Protocol: Document 03/20/24 10:53 NBM (Rec: 03/20/24 12:06 NBM [id number]) Cardio Equipment Recumbent Bicycle Duration (Minutes) 7 Resistance 0>4 Seat Position 2 seen Other resistance 0>4 at 4.5 min Therapeutic Exercises Supine Exercises SLR Supine Exercise Name HEP review per pt request Side bilateral Reps/Minutes 10x ea Comments cues for core stab, breath Standing Exercises hip flexor stretch Standing Exercise Name lunge position -HEP review Side bilateral Equipment Used handrail Reps/Minutes 2x30s ea Comments cues for form resisted sidestepping Resistance L1 TB ankles>above knees Reps/Minutes 2x10 Comments cue for square hips (belly button fwd) chair squat Standing Exercise Name HEP review Reps/Minutes 8x Comments cues for LE alignment, good hip hinge, Neuro Re-Education Treatment Balance Activities SLS Surface vaishali Equipment handrail prn Reps/Duration 30s ea Comments 2x 2-finger touch, improves w/ cues for gluteal activation and upright posture. -also trials no UE support: R stance max 5 sec (5s, 4s, 5s), L stance max 6sec (3s, 5s, 6s ), improves w/ cues for gluteal activation. tandem Details 1. Balance 2. walking Surface firm Equipment handrail prn Reps/Duration 30s ea Comments challenging, improves w/ cues for gluteal activation and upright posture. One seated rest break w/ water during tandem walking. PT-OP-T Assessment and Plan Start: 02/28/24 08:06 Freq: Status: Active Protocol: Document 03/20/24 10:53 [facility] (Rec: 03/20/24 12:06 [facility] [id number]) Physical Therapy Assessment Goals Two Impairment balance dysfunction unable to stand on 1 foot Short Term Goal (STG) Patient able to stand on 1 foot for at least 5 sec 03/20/24: Pt able to stand on each LE at least 5 sec x2 w/ cueing for gluteal activation. (R stance 5s, 4s, 5s, L stance 3s, 5s, 6s. STG Duration 03/29/24 (03/20/24 GOAL MET) Jail Goal (LTG) Patient able to stand on 1 foot for at least 10 sec as measure of improved stability and decreased fall risk. One Impairment pain left hip Short Term Goal (STG) decrease pain by at least 50% with all lusual activities 03/20/24: Pt reports no pain with usual activities except occasionally, possibly with sitting too long. STG Duration 03/29/24 - 03/20/24 GOAL MET Orchestra Leader Goal (LTG) decrease pain by at least 75% with all usual activities in home and the commlunity. 03/20/24: Pt reports no pain with usual activities except occasionally, possibly with sitting too long. LTG Duration 04/29/24 (03/20/24 PROGRESSING) Progress Towards Goals Progress Towards Goals Progressing Toward Goals,Goals Met Progress Comments STG One to decrease L hip pain by 50% met. STG Two to stand one one foot at least 5 sec met. Assessment Summary Assessment Lindsay presents with 0/10 pain which is unchanged throughout session except for R hip twinge during L SLR which resolves w/ repetition. Two STGs met today for pain and balance dysfunction: One to decrease L hip pain by 50% and Two to stand on one foot at least 5 sec. Pt encouraged to note activity when occasional hip pain does occur. Treatment focus on strenghtening and balance training. She demos improved form with resisted sidestepping requiring one cue for excessive hip rotation R and one cue for R neutral foot position with fatigue. She requires cues with SLR for not breathholding and demos improved self-awareness and breath with repetition. She continues to be challnged with tandem balance and walking. Knee valgus still observed but knees do not touch during chair squats. Physical Therapy Plan Frequency and Duration Frequency of Treatment 2x/Week Duration of treatment (weeks) 8 Plan of Care Start Date 02/28/24 Plan of Care End Date 04/29/24 Therapeutic Interventions Therapeutic Interventions Gait Training,Home Exercise Program,Joint Mobilizations, Manual Therapy,Patient/ Caregiver Education,Self-Care/ Home Management,Soft Tissue Mobilization,Taping, Therapeutic Activities, Therapeutic Exercises Modalities Cold Pack/Ice Massage,Electric Stimulation,Hot Packs, Infrared Therapy,Iontophoresis ,Ultrasound Next Visit Focus/Plan Next Note Type Treatment Note Next Visit Plan Assess response to last treatment and consider progressions as tolerated: Resisted sidesteps TB knees> ankles, assess TB levels for clamshells, add TB above knees for chair squat, HS stretch. Tandem balance/walking to start. POC: Continue progression of ther ex. Modalities and manual therapy PRN pain.
--- NOTE | 2024-03-27 12:14 | PT.OTN ---
Current Diagnoses Unilateral primary osteoarthritis, left hip (03/27/24) Physical Therapy Treatment Note PT-OP-A Visit Information Start: 02/28/24 08:06 Freq: Status: Active Protocol: Document 03/27/24 11:33 SAK (Rec: 03/27/24 12:13 [facility] [id number]) Out-Patient Physical Therapy Visit Information Visit Information Visit Type Treatment Note Visit Start Time 11:34 Visit Stop Time 12:15 Visit Number 7 Number of TRANSPLANT NURSE Visits 0 Evaluation Information Evaluation Date 02/28/24 PT-OP-B Current Condition Start: 02/28/24 08:06 Freq: Status: Active Protocol: Document 03/27/24 11:33 SAK (Rec: 03/27/24 12:13 [facility] [id number]) Current Condition History of Current Condition Onset Date Dec 12 Current Complaints hip pain L History of Current Condition Carrying something heavy, gradual onset of pain by evening, sharp pain lateral left hip. Used a cane for awhile. Has improved quite a bit, reports right also bothersome, possibly due to compensation especially after a lot of walking yesterday. x -ray: mild OA vaishali hips and SI, spondylosis lumbar spine. No exercise besides walking. Pain worse in the evening, especially after standing a long time. No orthotics in shoe. Has taken Naproxen, not currently using. History of fall on stairs several years ago. Some dizziness when first lays down, and when first sits up. Prior Treatments and Tests none PT-OP-C Subjective Start: 02/28/24 08:06 Freq: Status: Active Protocol: Document 03/27/24 11:33 SAK (Rec: 03/27/24 12:13 [facility] [id number]) OP-PT Subjective Patient Comments Patient Comments Min pain. No new c/o. Compliant to HEP. Sleep not as good last few days, not because of pain. PT-OP-D Balance Start: 02/28/24 08:06 Freq: Status: Active Protocol: Document 02/28/24 08:07 SAK (Rec: 02/28/24 09:03 [facility] [id number]) Balance Tests Single Limb Standing Single Limb- Right unable without help Single Limb- Left unable without help Tandem Tandem Standing unable without help PT-OP-G Mobility & Gait Start: 02/28/24 08:06 Freq: Status: Active Protocol: Document 02/28/24 08:07 SAK (Rec: 02/28/24 09:03 SAK [id number]) OP Mobility Evaluation Transfers Sit to Stand painful in hips OP Gait Assessment Gait Gait Assistance Required: Independent Assistive Devices Assistive Device None Gait Deviations General Gait Pattern Antalgic,Ataxic,Decreased Feet Clearance Factors Limiting Gait Function Factors Limiting Gait Function Decreased Strength,Pain Stair Climbing Evaluation Technique/Endurance Stair Climbing Direction Ascend and Descend Stair Climbing Technique Step to Step Comments Stair Climbing Comments requires railing PT-OP-H Neuro Start: 02/28/24 08:06 Freq: Status: Active Protocol: Document 02/28/24 08:07 SAK (Rec: 02/28/24 16:52 [facility] [id number]) Sensation Evaluation Gross Sensation Gross Sensation WNL PT-OP-J Posture/Palpation/Skin Start: 02/28/24 08:06 Freq: Status: Active Protocol: Document 02/28/24 08:07 SAK (Rec: 02/28/24 09:03 SAK [id number]) Posture Evaluation Position Standing Head/C-Spine Posture Forward Head T-Spine Posture Increased Kyphosis Shoulder Posture (L) Rounded,(R) Rounded Knee Posture (L) Genu Valgus Palpation Assessment Location greater trochanter Palpation Location left Palpation Findings Tenderness PT-OP-K Range of Motion Start: 02/28/24 08:06 Freq: Status: Active Protocol: Document 02/28/24 08:07 SAK (Rec: 02/28/24 16:52 [facility] [id number]) Lumbar Spine Range of Motion Lumbar Spine Active Testing Position Standing Comments mod decrease all motions with c/o tightness Hip Goniometric Range of Motion Hip Left Hip ROM WFL No Flexion w/Knee Flexed 110 Straight Leg Raise 80 Extension 0 Abduction 35 Internal Rotation 20 External Rotation 40 Right Hip ROM WFL No Flexion w/Knee Flexed 110 Straight Leg Raise 75 Extension 0 Abduction 35 Internal Rotation 25 External Rotation 30 PT-OP-M Strength Start: 02/28/24 08:06 Freq: Status: Active Protocol: Document 02/28/24 08:07 SAK (Rec: 02/28/24 09:03 SAK [id number]) Trunk Strength Trunk Manual Muscle Testing Flexion 3- Fair- Extension 3- Fair- Hip Strength Hip Manual Muscle Testing Left Flexion (L2) 3+ Fair+ Extension (S1) 3- Fair- Abduction 3+ Fair+ External Rotation 3+ Fair+ Internal Rotation 4 Good Right Flexion (L2) 3+ Fair+ Extension (S1) 3- Fair- Abduction 3+ Fair+ External Rotation 3+ Fair+ Internal Rotation 4 Good Knee Strength Knee Manual Muscle Testing vaishali Flexion (S2) 4 Good Extension (L3) 4 Good PT-OP-Q Treatments Start: 02/28/24 08:06 Freq: Status: Active Protocol: Document 03/27/24 11:33 [facility] (Rec: 03/27/24 12:13 [facility] [id number]) Cardio Equipment Recumbent Bicycle Duration (Minutes) 10 Resistance 2-3 Seat Position 2 seen Other resistance 0>4 at 4.5 min Gym Equipment Shuttle Balance chains red Details bal and wt shift fwd/bck, side Therapeutic Exercises Supine Exercises TrA with march Reps/Minutes 5x Comments cues to prevent lateral pelvic movement TrA Reps/Minutes 5x hip abduction Supine Exercise Name clamshell - HEP Side bilateral Resistance Lvl 2 Tb Reps/Minutes x10 Comments cues for TrA, breathwork hip adduction Supine Exercise Name w/ TrA - HEP Side bilateral Equipment Used yellow ball Reps/Minutes 10x 2 breathcycles (5) Standing Exercises resisted sidestepping Resistance L1 TB ankles>above knees Reps/Minutes 2x10 Comments cue for square hips (belly button fwd) chair squat Standing Exercise Name HEP review Resistance LVl 1 Tb above knees Reps/Minutes 2x5 Comments cues for full knee ext PT-OP-T Assessment and Plan Start: 02/28/24 08:06 Freq: Status: Active Protocol: Document 03/27/24 11:33 [facility] (Rec: 03/27/24 12:13 [facility] [id number]) Physical Therapy Assessment Goals Two Impairment balance dysfunction unable to stand on 1 foot Short Term Goal (STG) Patient able to stand on 1 foot for at least 5 sec 03/20/24: Pt able to stand on each LE at least 5 sec x2 w/ cueing for gluteal activation. (R stance 5s, 4s, 5s, L stance 3s, 5s, 6s. STG Duration 03/29/24 (03/20/24 GOAL MET) [employer] Fastener Goal (LTG) Patient able to stand on 1 foot for at least 10 sec as measure of improved stability and decreased fall risk. One Impairment pain left hip Short Term Goal (STG) decrease pain by at least 50% with all lusual activities 03/20/24: Pt reports no pain with usual activities except occasionally, possibly with sitting too long. STG Duration 03/29/24 - 03/20/24 GOAL MET [employer] Fastener Goal (LTG) decrease pain by at least 75% with all usual activities in home and the commlunity. 03/20/24: Pt reports no pain with usual activities except occasionally, possibly with sitting too long. LTG Duration 04/29/24 (03/20/24 PROGRESSING) Assessment Summary Assessment Improving strength, TRA activationwith core stab. Min pain today. Good progression . Added shuttle balance machine with chains red, good challenge with patient able to gradually wean to min use of UE's, cues for soft knees and core activation. Discussed POC and agreed to decreased frequency to 1x/wk PT through end of month then ancitipate discharce. Physical Therapy Plan Frequency and Duration Frequency of Treatment 2x/Week Duration of treatment (weeks) 8 Plan of Care Start Date 02/28/24 Plan of Care End Date 04/29/24 Therapeutic Interventions Therapeutic Interventions Gait Training,Home Exercise Program,Joint Mobilizations, Manual Therapy,Patient/ Caregiver Education,Self-Care/ Home Management,Soft Tissue Mobilization,Taping, Therapeutic Activities, Therapeutic Exercises Modalities Cold Pack/Ice Massage,Electric Stimulation,Hot Packs, Infrared Therapy,Iontophoresis ,Ultrasound Next Visit Focus/Plan Next Note Type Treatment Note Next Visit Plan Decrease frequency of PT to 1x /wk, patient has good compliance to HEP and is making good progress. Anticipate discharge by the end of the month.
--- NOTE | 2024-04-03 16:00 | PT.OTN ---
Current Diagnoses Unilateral primary osteoarthritis, left hip (04/03/24) Physical Therapy Treatment Note PT-OP-A Visit Information Start: 02/28/24 08:06 Freq: Status: Active Protocol: Document 04/03/24 10:42 SAK (Rec: 04/03/24 11:[address] [facility] [id number]) Out-Patient Physical Therapy Visit Information Visit Information Visit Type Treatment Note Visit Note Patient Restorationism, doesn't celebrate holidays Visit Start Time 10:46 Visit Stop Time 11:30 Visit Number 8 Number of FINISH OFF OPERATOR Visits 0 PT-OP-B Current Condition Start: 02/28/24 08:06 Freq: Status: Active Protocol: Document 04/03/24 10:42 SAK (Rec: 04/03/24 11:[address] [facility] [id number]) Current Condition History of Current Condition Onset Date Dec 12 Current Complaints hip pain L History of Current Condition Carrying something heavy, gradual onset of pain by evening, sharp pain lateral left hip. Used a cane for awhile. Has improved quite a bit, reports right also bothersome, possibly due to compensation especially after a lot of walking yesterday. x -ray: mild OA vaishali hips and SI, spondylosis lumbar spine. No exercise besides walking. Pain worse in the evening, especially after standing a long time. No orthotics in shoe. Has taken Naproxen, not currently using. History of fall on stairs several years ago. Some dizziness when first lays down, and when first sits up. Prior Treatments and Tests none PT-OP-C Subjective Start: 02/28/24 08:06 Freq: Status: Active Protocol: Document 04/03/24 10:42 SAK (Rec: 04/03/24 11:[address] [facility] [id number]) OP-PT Subjective Patient Comments Patient Comments Spasming pain middle back that started after washing pots yesterday, comes and goes. Took Naproxen to be able to sleep. Pain as high as 7/10 PT-OP-D Balance Start: 02/28/24 08:06 Freq: Status: Active Protocol: Document 02/28/24 08:07 SAK (Rec: 02/28/24 09:[address] [facility] [id number]) Balance Tests Single Limb Standing Single Limb- Right unable without help Single Limb- Left unable without help Tandem Tandem Standing unable without help PT-OP-G Mobility & Gait Start: 02/28/24 08:06 Freq: Status: Active Protocol: Document 02/28/24 08:07 SAK (Rec: 02/28/24 09:03 SAK [id number]) OP Mobility Evaluation Transfers Sit to Stand painful in hips OP Gait Assessment Gait Gait Assistance Required: Independent Assistive Devices Assistive Device None Gait Deviations General Gait Pattern Antalgic,Ataxic,Decreased Feet Clearance Factors Limiting Gait Function Factors Limiting Gait Function Decreased Strength,Pain Stair Climbing Evaluation Technique/Endurance Stair Climbing Direction Ascend and Descend Stair Climbing Technique Step to Step Comments Stair Climbing Comments requires railing PT-OP-H Neuro Start: 02/28/24 08:06 Freq: Status: Active Protocol: Document 02/28/24 08:07 SAK (Rec: 02/28/24 16:[address] [facility] [id number]) Sensation Evaluation Gross Sensation Gross Sensation WNL PT-OP-J Posture/Palpation/Skin Start: 02/28/24 08:06 Freq: Status: Active Protocol: Document 02/28/24 08:07 SAK (Rec: 02/28/24 09:[address] [facility] [id number]) Posture Evaluation Position Standing Head/C-Spine Posture Forward Head T-Spine Posture Increased Kyphosis Shoulder Posture (L) Rounded,(R) Rounded Knee Posture (L) Genu Valgus Palpation Assessment Location greater trochanter Palpation Location left Palpation Findings Tenderness PT-OP-K Range of Motion Start: 02/28/24 08:06 Freq: Status: Active Protocol: Document 02/28/24 08:07 SAK (Rec: 02/28/24 16:[address] [facility] [id number]) Lumbar Spine Range of Motion Lumbar Spine Active Testing Position Standing Comments mod decrease all motions with c/o tightness Hip Goniometric Range of Motion Hip Left Hip ROM WFL No Flexion w/Knee Flexed 110 Straight Leg Raise 80 Extension 0 Abduction 35 Internal Rotation 20 External Rotation 40 Right Hip ROM WFL No Flexion w/Knee Flexed 110 Straight Leg Raise 75 Extension 0 Abduction 35 Internal Rotation 25 External Rotation 30 PT-OP-M Strength Start: 02/28/24 08:06 Freq: Status: Active Protocol: Document 02/28/24 08:07 SAK (Rec: 02/28/24 09:03 SAK [id number]) Trunk Strength Trunk Manual Muscle Testing Flexion 3- Fair- Extension 3- Fair- Hip Strength Hip Manual Muscle Testing Left Flexion (L2) 3+ Fair+ Extension (S1) 3- Fair- Abduction 3+ Fair+ External Rotation 3+ Fair+ Internal Rotation 4 Good Right Flexion (L2) 3+ Fair+ Extension (S1) 3- Fair- Abduction 3+ Fair+ External Rotation 3+ Fair+ Internal Rotation 4 Good Knee Strength Knee Manual Muscle Testing vaishali Flexion (S2) 4 Good Extension (L3) 4 Good PT-OP-Q Treatments Start: 02/28/24 08:06 Freq: Status: Active Protocol: Document 04/03/24 10:42 SAK (Rec: 04/03/24 11:30 SAK [id number]) Cardio Equipment Recumbent Stepper (Sci-Fit) Duration (Minutes) 10 Resistance 1.5 Seat Position 8 Therapeutic Exercises Supine Exercises ball press Equipment Used 45 cm ball Reps/Minutes 10x Comments cues for core activation SKTC Reps/Minutes 2x30 posture press Reps/Minutes 10x5 TrA with march Supine Exercise Name feet on table, leg lowering Reps/Minutes 10x Comments cues to prevent lateral pelvic movement TrA Reps/Minutes 10x Comments cues for breath hip abduction Supine Exercise Name clamshell - HEP Side bilateral Resistance Lvl 2 Tb Reps/Minutes x10 Comments cues for TrA, breathwork hip adduction Supine Exercise Name w/ TrA - HEP Side bilateral Equipment Used yellow ball Reps/Minutes 10x 1 breathcycles (5) Standing Exercises resisted sidestepping Comments held today due to thoracic pain chair squat Comments held due to thoracic pain Self-Care/Home Management Treatment Education Patient Education Body Mechanics,Home Exercise Program,Joint Protection,Pain Management,Posture PT-OP-T Assessment and Plan Start: 02/28/24 08:06 Freq: Status: Active Protocol: Document 04/03/24 10:42 SAK (Rec: 04/03/24 11:30 [facility]AK [id number]) Physical Therapy Assessment Goals Two Impairment balance dysfunction unable to stand on 1 foot Short Term Goal (STG) Patient able to stand on 1 foot for at least 5 sec 03/20/24: Pt able to stand on each LE at least 5 sec x2 w/ cueing for gluteal activation. (R stance 5s, 4s, 5s, L stance 3s, 5s, 6s. STG Duration 03/29/24 (03/20/24 GOAL MET) Penitentiary Goal (LTG) Patient able to stand on 1 foot for at least 10 sec as measure of improved stability and decreased fall risk. One Impairment pain left hip Short Term Goal (STG) decrease pain by at least 50% with all lusual activities 03/20/24: Pt reports no pain with usual activities except occasionally, possibly with sitting too long. STG Duration 03/29/24 - 03/20/24 GOAL MET Penitentiary Goal (LTG) decrease pain by at least 75% with all usual activities in home and the commlunity. 03/20/24: Pt reports no pain with usual activities except occasionally, possibly with sitting too long. LTG Duration 04/29/24 (03/20/24 PROGRESSING) Assessment Summary Assessment BP after Sci [id number] , then 138/85 2 min later. No increase in pain with modified treatment today; Sci-Fit then supine core exercises with moist heat thoracolumbar spine . Patient advised to contact doctor or go to ER if thoracic pain doesn't improve; appears related to lifting of pots; patient was also educated in body mechanics for lifting to protect spine and demonstrated good understanding. Physical Therapy Plan Frequency and Duration Frequency of Treatment 2x/Week Duration of treatment (weeks) 8 Plan of Care Start Date 02/28/24 Plan of Care End Date 04/29/24 Therapeutic Interventions Therapeutic Interventions Gait Training,Home Exercise Program,Joint Mobilizations, Manual Therapy,Patient/ Caregiver Education,Self-Care/ Home Management,Soft Tissue Mobilization,Taping, Therapeutic Activities, Therapeutic Exercises Modalities Cold Pack/Ice Massage,Electric Stimulation,Hot Packs, Infrared Therapy,Iontophoresis ,Ultrasound Next Visit Focus/Plan Next Note Type Treatment Note Next Visit Plan Review HEP, assure safety and indep, determine need for any further PT or consider discharge end of month
--- NOTE | 2024-04-18 09:44 | PT.OTN ---
Current Diagnoses Unilateral primary osteoarthritis, left hip (04/18/24) Physical Therapy Treatment Note PT-OP-A Visit Information Start: 02/28/24 08:06 Freq: Status: Active Protocol: Document 04/18/24 09:02 [facility] (Rec: 04/18/24 09:44 [facility] [id number]) Out-Patient Physical Therapy Visit Information Visit Information Visit Type Treatment Note Visit Note Patient Muslim, doesn't celebrate holidays Visit Start Time 09:02 Visit Stop Time 09:45 Visit Number 9 Number of PATIENT CARE SPECIALIST Visits 0 Precautions Precautions osteoporosis PT-OP-B Current Condition Start: 02/28/24 08:06 Freq: Status: Active Protocol: Document 04/03/24 10:42 SAK (Rec: 04/03/24 11:30 [facility] [id number]) Current Condition History of Current Condition Onset Date Dec 12 Current Complaints hip pain L History of Current Condition Carrying something heavy, gradual onset of pain by evening, sharp pain lateral left hip. Used a cane for awhile. Has improved quite a bit, reports right also bothersome, possibly due to compensation especially after a lot of walking yesterday. x -ray: mild OA vaishali hips and SI, spondylosis lumbar spine. No exercise besides walking. Pain worse in the evening, especially after standing a long time. No orthotics in shoe. Has taken Naproxen, not currently using. History of fall on stairs several years ago. Some dizziness when first lays down, and when first sits up. Prior Treatments and Tests none PT-OP-C Subjective Start: 02/28/24 08:06 Freq: Status: Active Protocol: Document 04/18/24 09:02 [facility] (Rec: 04/18/24 09:44 [facility] [id number]) OP-PT Subjective Patient Comments Patient Comments Pain decreased quite a bit after last session but has returned today. Doing exercises not as consistently as I know I need to. PT-OP-D Balance Start: 02/28/24 08:06 Freq: Status: Active Protocol: Document 02/28/24 08:07 SAK (Rec: 02/28/24 09:03 [facility] [id number]) Balance Tests Single Limb Standing Single Limb- Right unable without help Single Limb- Left unable without help Tandem Tandem Standing unable without help PT-OP-G Mobility & Gait Start: 02/28/24 08:06 Freq: Status: Active Protocol: Document 02/28/24 08:07 SAK (Rec: 02/28/24 09:03 SAK [id number]) OP Mobility Evaluation Transfers Sit to Stand painful in hips OP Gait Assessment Gait Gait Assistance Required: Independent Assistive Devices Assistive Device None Gait Deviations General Gait Pattern Antalgic,Ataxic,Decreased Feet Clearance Factors Limiting Gait Function Factors Limiting Gait Function Decreased Strength,Pain Stair Climbing Evaluation Technique/Endurance Stair Climbing Direction Ascend and Descend Stair Climbing Technique Step to Step Comments Stair Climbing Comments requires railing PT-OP-H Neuro Start: 02/28/24 08:06 Freq: Status: Active Protocol: Document 02/28/24 08:07 SAK (Rec: 02/28/24 16:52 SAK [id number]) Sensation Evaluation Gross Sensation Gross Sensation WNL PT-OP-J Posture/Palpation/Skin Start: 02/28/24 08:06 Freq: Status: Active Protocol: Document 02/28/24 08:07 SAK (Rec: 02/28/24 09:03 SAK [id number]) Posture Evaluation Position Standing Head/C-Spine Posture Forward Head T-Spine Posture Increased Kyphosis Shoulder Posture (L) Rounded,(R) Rounded Knee Posture (L) Genu Valgus Palpation Assessment Location greater trochanter Palpation Location left Palpation Findings Tenderness PT-OP-K Range of Motion Start: 02/28/24 08:06 Freq: Status: Active Protocol: Document 02/28/24 08:07 SAK (Rec: 02/28/24 16:52 SAK [id number]) Lumbar Spine Range of Motion Lumbar Spine Active Testing Position Standing Comments mod decrease all motions with c/o tightness Hip Goniometric Range of Motion Hip Left Hip ROM WFL No Flexion w/Knee Flexed 110 Straight Leg Raise 80 Extension 0 Abduction 35 Internal Rotation 20 External Rotation 40 Right Hip ROM WFL No Flexion w/Knee Flexed 110 Straight Leg Raise 75 Extension 0 Abduction 35 Internal Rotation 25 External Rotation 30 PT-OP-M Strength Start: 02/28/24 08:06 Freq: Status: Active Protocol: Document 02/28/24 08:07 SAK (Rec: 02/28/24 09:03 SAK [id number]) Trunk Strength Trunk Manual Muscle Testing Flexion 3- Fair- Extension 3- Fair- Hip Strength Hip Manual Muscle Testing Left Flexion (L2) 3+ Fair+ Extension (S1) 3- Fair- Abduction 3+ Fair+ External Rotation 3+ Fair+ Internal Rotation 4 Good Right Flexion (L2) 3+ Fair+ Extension (S1) 3- Fair- Abduction 3+ Fair+ External Rotation 3+ Fair+ Internal Rotation 4 Good Knee Strength Knee Manual Muscle Testing vaishali Flexion (S2) 4 Good Extension (L3) 4 Good PT-OP-Q Treatments Start: 02/28/24 08:06 Freq: Status: Active Protocol: Document 04/18/24 09:02 [facility] (Rec: 04/18/24 09:44 [facility] [id number]) Cardio Equipment Recumbent Bicycle Duration (Minutes) 10 Resistance 2-3 Seat Position 2 seen Other resistance 0>4 at 4.5 min Therapeutic Exercises Supine Exercises ball press Equipment Used 45 cm ball Reps/Minutes 10x Comments cues for core activation posture press Reps/Minutes 10x5 bridging Supine Exercise Name segmental w/ TrA, PPT - HEP review Side bilateral Reps/Minutes x10 Comments cued breath control, small lift Standing Exercises wall posture Reps/Minutes 5x5 Comments verbal and tactile cues row, shoulder extension Reps/Minutes 10x Comments cues for neutral posture Neuro Re-Education Treatment Balance Activities SLS Surface vaishali Equipment handrail prn Reps/Duration multiple trials ea Comments 2x 2-finger touch, trials no UE support: R stance max 35sec , L stance max 6 sec Self-Care/Home Management Treatment Education Patient Education Body Mechanics,Home Exercise Program,Joint Protection,Pain Management,Posture Other Education importance of regularly performing exercises. PT-OP-T Assessment and Plan Start: 02/28/24 08:06 Freq: Status: Active Protocol: Document 04/18/24 09:02 [facility] (Rec: 04/18/24 09:44 [facility] [id number]) Physical Therapy Assessment Goals Two Impairment balance dysfunction unable to stand on 1 foot Short Term Goal (STG) Patient able to stand on 1 foot for at least 5 sec 03/20/24: Pt able to stand on each LE at least 5 sec x2 w/ cueing for gluteal activation. (R stance 5s, 4s, 5s, L stance 3s, 5s, 6s. STG Duration 03/29/24 (03/20/24 GOAL MET) Tattoo Technician Goal (LTG) Patient able to stand on 1 foot for at least 10 sec as measure of improved stability and decreased fall risk. LTG Duration 04/29/24 One Impairment pain left hip Short Term Goal (STG) decrease pain by at least 50% with all lusual activities 03/20/24: Pt reports no pain with usual activities except occasionally, possibly with sitting too long. STG Duration 03/29/24 - 03/20/24 GOAL MET Tattoo Technician Goal (LTG) decrease pain by at least 75% with all usual activities in home and the commlunity. 03/20/24: Pt reports no pain with usual activities except occasionally, possibly with sitting too long. LTG Duration 04/29/24 (03/20/24 PROGRESSING) Assessment Summary Assessment Patient started with c/o thoracic spasms. PT stressed importance of consistent exercise, attention to posture . Reported decrease in pain end of session Physical Therapy Plan Frequency and Duration Frequency of Treatment 2x/Week Duration of treatment (weeks) 8 Plan of Care Start Date 02/28/24 Plan of Care End Date 04/29/24 Therapeutic Interventions Therapeutic Interventions Gait Training,Home Exercise Program,Joint Mobilizations, Manual Therapy,Patient/ Caregiver Education,Self-Care/ Home Management,Soft Tissue Mobilization,Taping, Therapeutic Activities, Therapeutic Exercises Modalities Cold Pack/Ice Massage,Electric Stimulation,Hot Packs, Infrared Therapy,Iontophoresis ,Ultrasound Next Visit Focus/Plan Next Note Type Treatment Note Next Visit Plan Assure independence and safety with HEP, update written HO if needed.
--- NOTE | 2024-04-23 11:27 | PT.OTN ---
Current Diagnoses Unilateral primary osteoarthritis, left hip (04/23/24) Physical Therapy Treatment Note PT-OP-A Visit Information Start: 02/28/24 08:06 Freq: Status: Active Protocol: Document 04/23/24 10:37 SAK (Rec: 04/23/24 11:26 [facility] [id number]) Out-Patient Physical Therapy Visit Information Visit Information Visit Type Treatment Note Visit Note Patient Jew, doesn't celebrate holidays Visit Start Time 10:45 Visit Number 10 Number of SCALPING MACHINE OPERATOR Visits 0 Precautions Precautions osteoporosis PT-OP-B Current Condition Start: 02/28/24 08:06 Freq: Status: Active Protocol: Document 04/23/24 10:37 SAK (Rec: 04/23/24 11:26 [facility] [id number]) Current Condition History of Current Condition Onset Date Dec 12 Current Complaints hip pain L History of Current Condition Carrying something heavy, gradual onset of pain by evening, sharp pain lateral left hip. Used a cane for awhile. Has improved quite a bit, reports right also bothersome, possibly due to compensation especially after a lot of walking yesterday. x -ray: mild OA vaishali hips and SI, spondylosis lumbar spine. No exercise besides walking. Pain worse in the evening, especially after standing a long time. No orthotics in shoe. Has taken Naproxen, not currently using. History of fall on stairs several years ago. Some dizziness when first lays down, and when first sits up. Prior Treatments and Tests none PT-OP-C Subjective Start: 02/28/24 08:06 Freq: Status: Active Protocol: Document 04/23/24 10:37 [facility] (Rec: 04/23/24 11:26 [facility] [id number]) OP-PT Subjective Patient Comments Patient Comments Reports hip is fine, back pain persists but what she came to PT for is resolved. Still doing modified HEP. PT-OP-D Balance Start: 02/28/24 08:06 Freq: Status: Active Protocol: Document 02/28/24 08:07 SAK (Rec: 02/28/24 09:03 [facility] [id number]) Balance Tests Single Limb Standing Single Limb- Right unable without help Single Limb- Left unable without help Tandem Tandem Standing unable without help PT-OP-G Mobility & Gait Start: 02/28/24 08:06 Freq: Status: Active Protocol: Document 02/28/24 08:07 [facility]AK (Rec: 02/28/24 09:03 [facility]AK [id number]) OP Mobility Evaluation Transfers Sit to Stand painful in hips OP Gait Assessment Gait Gait Assistance Required: Independent Assistive Devices Assistive Device None Gait Deviations General Gait Pattern Antalgic,Ataxic,Decreased Feet Clearance Factors Limiting Gait Function Factors Limiting Gait Function Decreased Strength,Pain Stair Climbing Evaluation Technique/Endurance Stair Climbing Direction Ascend and Descend Stair Climbing Technique Step to Step Comments Stair Climbing Comments requires railing PT-OP-H Neuro Start: 02/28/24 08:06 Freq: Status: Active Protocol: Document 02/28/24 08:07 [facility]AK (Rec: 02/28/24 16:52 SAK [id number]) Sensation Evaluation Gross Sensation Gross Sensation WNL PT-OP-J Posture/Palpation/Skin Start: 02/28/24 08:06 Freq: Status: Active Protocol: Document 02/28/24 08:07 [facility]AK (Rec: 02/28/24 09:03 [facility]AK [id number]) Posture Evaluation Position Standing Head/C-Spine Posture Forward Head T-Spine Posture Increased Kyphosis Shoulder Posture (L) Rounded,(R) Rounded Knee Posture (L) Genu Valgus Palpation Assessment Location greater trochanter Palpation Location left Palpation Findings Tenderness PT-OP-K Range of Motion Start: 02/28/24 08:06 Freq: Status: Active Protocol: Document 02/28/24 08:07 SAK (Rec: 02/28/24 16:52 [facility] [id number]) Lumbar Spine Range of Motion Lumbar Spine Active Testing Position Standing Comments mod decrease all motions with c/o tightness Hip Goniometric Range of Motion Hip Left Hip ROM WFL No Flexion w/Knee Flexed 110 Straight Leg Raise 80 Extension 0 Abduction 35 Internal Rotation 20 External Rotation 40 Right Hip ROM WFL No Flexion w/Knee Flexed 110 Straight Leg Raise 75 Extension 0 Abduction 35 Internal Rotation 25 External Rotation 30 PT-OP-M Strength Start: 02/28/24 08:06 Freq: Status: Active Protocol: Document 02/28/24 08:07 [facility]AK (Rec: 02/28/24 09:03 SAK [id number]) Trunk Strength Trunk Manual Muscle Testing Flexion 3- Fair- Extension 3- Fair- Hip Strength Hip Manual Muscle Testing Left Flexion (L2) 3+ Fair+ Extension (S1) 3- Fair- Abduction 3+ Fair+ External Rotation 3+ Fair+ Internal Rotation 4 Good Right Flexion (L2) 3+ Fair+ Extension (S1) 3- Fair- Abduction 3+ Fair+ External Rotation 3+ Fair+ Internal Rotation 4 Good Knee Strength Knee Manual Muscle Testing vaihsali Flexion (S2) 4 Good Extension (L3) 4 Good PT-OP-Q Treatments Start: 02/28/24 08:06 Freq: Status: Active Protocol: Document 04/23/24 10:37 [facility] (Rec: 04/23/24 11:26 [facility] [id number]) Cardio Equipment Recumbent Bicycle Duration (Minutes) 8 Resistance 3-4 Seat Position 2 seen Treadmill Duration (Minutes) 5 Speed 1.2 Incline 0 Therapeutic Exercises Supine Exercises ball press Equipment Used 45 cm ball Reps/Minutes 10x Comments cues for core activation Standing Exercises wall posture Reps/Minutes 5x5 Comments verbal and tactile cues row, shoulder extension Reps/Minutes 10x Comments cues for neutral posture chair squat Reps/Minutes 10x Comments cues for pushing through the floor Neuro Re-Education Treatment Balance Activities SLS Surface vaishali Equipment handrail prn Reps/Duration multiple trials ea Comments max 8 sec after several trials tandem Details 1. Balance 2. walking Surface firm Equipment handrail prn Comments max 29 sec Self-Care/Home Management Treatment Education Patient Education Body Mechanics,Home Exercise Program,Joint Protection,Pain Management,Posture PT-OP-T Assessment and Plan Start: 02/28/24 08:06 Freq: Status: Active Protocol: Document 04/23/24 10:37 [facility] (Rec: 04/23/24 11:26 [facility] [id number]) Physical Therapy Assessment Goals Two Impairment balance dysfunction unable to stand on 1 foot Short Term Goal (STG) Patient able to stand on 1 foot for at least 5 sec 03/20/24: Pt able to stand on each LE at least 5 sec x2 w/ cueing for gluteal activation. (R stance 5s, 4s, 5s, L stance 3s, 5s, 6s. STG Duration 03/29/24 (03/20/24 GOAL MET) Fryline Attendant Goal (LTG) Patient able to stand on 1 foot for at least 10 sec as measure of improved stability and decreased fall risk. 04/23/24: SLS max 8 sec, good goal progress, encouraged continued HEP LTG Duration 04/29/24 One Impairment pain left hip Short Term Goal (STG) decrease pain by at least 50% with all lusual activities 03/20/24: Pt reports no pain with usual activities except occasionally, possibly with sitting too long. STG Duration 03/29/24 - 03/20/24 GOAL MET Fryline Attendant Goal (LTG) decrease pain by at least 75% with all usual activities in home and the commlunity. 03/20/24: Pt reports no pain with usual activities except occasionally, possibly with sitting too long. 04/23/24: goal met LTG Duration goal met Assessment Summary Assessment Goals mostly achieved, patient ready for discharge to [facility] and self care. Physical Therapy Plan Therapeutic Interventions Modalities Cold Pack/Ice Massage,Electric Stimulation,Hot Packs, Infrared Therapy,Iontophoresis ,Ultrasound Discharge Physical Therapy Discharge Reasons Goals Met
== END 2024-04-25 13:16 | disposition home or self-care (01) ==
LOC: PHYS 10:45
PROVIDERS: Family Provider Family Medicine; PCP Family Medicine; Referring Provider Physician Assistant; Visit Provider Physician Assistant
DX: M16.12 Unilateral primary osteoarthritis, left hip (principal)
CPT/HCPCS: 97110; 97112; 97116; 97161; 97535

== ENCOUNTER → 2024-07-25 10:06 | Outpatient (CLI) | payer OTHER, SELFPAY | PROVIDERS: Family Provider Family Medicine; PCP Family Medicine; Visit Provider Physician Assistant | DX: R30.0 Dysuria (principal) | CPT/HCPCS: 87086 ==

== ENCOUNTER → 2024-08-14 09:07 | Outpatient (CLI) | payer OTHER, SELFPAY ==
--- NOTE | 2024-08-14 10:36 | DI.RAD.S_ITS ---
PROCEDURE: XR DEXA AXIAL SKELETON INDICATIONS: menopausal, osteoporosis COMPARISON: [facility], CR, XR DEXA AXIAL SKELETON, 01/16/2020, 10:28. FINDINGS: Lumbar Spine: Bone mineral density 0.501 g/cm2, T score -5.0. There is interval 10.7% decrease in total lumbar spine bone mineral density. Left Femoral Neck: Bone mineral density 0.502 g/cm2, T score -3.1. There is interval 18.1% decrease in left femoral neck bone mineral density. Left Hip: Bone mineral density 0.610 g/cm2, T score -2.7. There is interval 9.5% decrease in left total hip bone mineral density. Fracture Risk Calculation (when applicable): 10-year fracture risk of a major osteoporotic fracture 46 percent and of a hip fracture 35 percent. (T score greater or equal to -1.0 to: NORMAL) (T score from -1.1 to -2.4: OSTEOPENIA) (T score less than or equal to -2.5: OSTEOPOROSIS) IMPRESSION: Osteoporosis. Follow-up guidelines as follows: Osteoporosis: Consider a repeat DEXA and Vertebral Fracture Assessment (VFA) exam in 2 years or sooner if medically necessary, to reassess this patient's status. Osteopenia: Consider a repeat DEXA in 2-3 years to reassess this patient's status, or if there is a new clinical indication. Normal: Consider a repeat DEXA in 5 years or sooner, or if there is a new clinical indication. All treatment decisions require clinical judgment and consideration of individual patient factors, including patient preferences, comorbidities, previous drug use, risk factors not captured in the FRAX model (e.g., frailty, falls, vitamin D deficiency, increased bone turnover, interval significant decline in bone density ) and possible under- or over-estimation of fracture risk by FRAX. In addition, the NOF Guide recommends that FDA-approved medical therapies be considered in postmenopausal women and men age >= 50 years with a: * Hip or vertebral (clinical or morphometric) fracture * T-score of <=-2.5 at the spine or hip * Ten-year fracture probability by FRAX of >= 3% for hip fracture or >=20% for major osteoporotic fracture. Dictated by: Frederick Platt M.D. on 08/14/2024 at 16:34 Approved by: Frederick Platt M.D. on 08/14/2024 at 16:35
[2024-08-14 10:51] LABS: Add Manual Diff / Slide Review NO; Basophils Absolute Auto 100 /uL (0-100); Basophils Percent Auto 1.1 % (0-2); Eosinophils Absolute Auto 0 /uL (0-450); Eosinophils Percent Auto 0.8 % (2-4); Hematocrit 33.7 % (36-46); Hemoglobin 11.3 g/dL (12.0-16.0); Lymphocytes Absolute Auto 1400 /uL (1100-4500); Lymphocytes Percent Auto 25.1 % (25-40); Mean Corpuscular HGB Conc 33.6 % (30-36); Mean Corpuscular Volume 89.4 fL (80-100); Monocytes Absolute Auto 600 /uL (0-900); Monocytes Percent Auto 9.9 % (3-14); Neutrophils Absolute Auto 3600 /uL (1500-7000); Neutrophils Percent Auto 63.1 % (50-75); Platelet Count 342 X10^3/uL (150-400); Red Blood Cell Count 3.77 X10^6/uL (4.0-5.2); Red Cell Distribution Width 15.4 % (11.6-14.8); White Blood Cell Count 5.7 X10^3/uL (4.5-11.0)
[2024-08-14 11:08] LABS: Hemoglobin A1C% w Est Avg Glu 5.4 % (4.0-6.0)
[2024-08-14 11:10] LABS: HEMOLYSIS < 15 (0-50); Iron 86 ug/dL (37-170)
[2024-08-14 11:11] LABS: Alanine Aminotransferase 16 IU/L (<35); Albumin 4.4 g/dL (3.5-5.0); Albumin Globulin Ratio 1.3 (1.0-2.8); Alkaline Phosphatase 97 U/L (38-126); Aspartate Aminotransferase 28 IU/L (14-36); BUN Creatinine Ratio 17.7 (6-22); Bilirubin Total 0.8 mg/dL (0.2-1.3); Blood Urea Nitrogen 11 mg/dL (7-17); Calcium 9.5 mg/dL (8.4-10.2); Carbon Dioxide 26 mmol/L (22-32); Chloride 96 mmol/L (98-107); Estimated Glomerular Filt Rate > 60 mL/min (>60); Globulin 3.3 g/dL (1.7-4.1); Glucose 90 mg/dL (70-99); HEMOLYSIS < 15 (0-50); Potassium 4.8 mmol/L (3.4-5.1); Sodium 131 mmol/L (137-145); Total Protein 7.7 g/dL (6.3-8.2)
[2024-08-14 11:21] LABS: Percent Iron Saturation 22 % (15-50); Total Iron Binding Capacity 387 ug/dL (265-497); Transferrin 336 mg/dL (206-381)
[2024-08-14 11:39] LABS: TSH w/ Reflex to FT4 2.91 uIU/mL (0.47-4.68)
[2024-08-14 11:58] LABS: Vitamin B12 447 pg/mL (239-931)
[2024-08-14 12:06] LABS: Appearance Urine UA CLEAR; Bilirubin Urine UA NEGATIVE (NEGATIVE); Color Urine UA YELLOW; Glucose Urine UA NEGATIVE (Negative); Ketones Urine UA NEGATIVE (NEGATIVE); Leukocyte Esterase Urine UA NEGATIVE (NEGATIVE); Nitrite Urine UA NEGATIVE (Negative); Occult Blood Urine UA NEGATIVE (Negative); Protein Urine UA NEGATIVE (Negative); Urobilinogen Urine UA 0.2 E.U./dL (0.2)
[2024-08-14 12:13] LABS: pH Urine UA 6.5 (4.5-8.0)
[2024-08-14 12:17] LABS: Bacteria Urine None Seen; Culture Indicated Urine Cult Not Indicated; RBC Urine None Seen (0-5/HPF); Squamous Epithelial Cell Urine None Seen (0-5/HPF); Urine Volume 10mL (spun); WBC Urine None Seen (0-5/HPF)
== END ==
PROVIDERS: Family Provider Family Medicine; PCP Family Medicine; Referring Provider Family Medicine; Visit Provider Family Medicine
DX: D64.9 Anemia, unspecified (principal); R73.03 Prediabetes; E78.5 Hyperlipidemia, unspecified; E55.9 Vitamin D deficiency, unspecified; M81.0 Age-related osteoporosis without current pathological fracture
CPT/HCPCS: 36415; 77080; 80053; 81001; 82607; 83036; 83540; 83550; 84443; 85025

== ENCOUNTER 2025-02-07 08:07 | Inpatient (IN) | payer OTHER, SELFPAY ==
[2025-02-07] VITALS (11 sets, daily range): BP systolic 134–204; BP diastolic 73–87; PULSE 57–91; RESP 13–25; TEMP 35.8–36.8; O2SAT 95–99; BMI 25.0
--- NOTE | 2025-02-07 08:12 | DI.CT.S_ITS ---
PROCEDURE: CT STROKE INDICATIONS: Left side weakness, wake up stroke, Last well 10pm TECHNIQUE: Noncontrast 4.5 mm thick angled axial sections acquired from the foramen magnum to the vertex, with coronal reformats. For radiation dose reduction, the following was used: automated exposure control, adjustment of mA and/or kV according to patient size. COMPARISON: None. FINDINGS: Image quality: Diagnostic. CSF spaces: Basal cisterns are patent. No extra-axial fluid collections. The ventricles are symmetric in size and shape. Brain: No intracranial bleeds or mass effect. There is cerebral volume loss, with resultant ventricular and sulcal prominence. There are periventricular and deep white matter chronic small vessel ischemic changes. There is intracranial internal carotid artery atherosclerosis. Skull and face: Calvarium and visualized facial bones appear intact, without suspicious lesions. Sinuses: Visualized sinuses and mastoids are clear. IMPRESSION: No acute intracranial pathology. Comment: Findings were discussed with Dr. Dodd at the time of study dictation on 02/07/2025 at 0830 hours. This study fulfills neurological imaging criteria for inclusion or exclusion of acute stroke therapies based on available published neurological guidelines. Dictated by: Mike Rao M.D. on 02/07/2025 at 8:29 Approved by: Mike Rao M.D. on 02/07/2025 at 8:33
--- NOTE | 2025-02-07 08:12 | EKG_ITS ---
[facility] [address] [place] [address] Test Date: 2025-02-07 Pat Name: Lindsay Collazo Department: [facility] Room: Gender: Female Roster Clerk: SAM : 1945 Requested By: Order Number: [id number] Reading MD: Rachid Garcia MD Measurements Intervals [place] Rate: 64 P: 51 DE: 144 QRS: -28 QRSD: 94 T: 52 QT: 402 QTc: 414 Interpretive Statements Normal sinus rhythm Septal infarct , age undetermined Electronically Signed On 02-07-2025 12:03:20 PDT by Rachid Garcia MD
--- NOTE | 2025-02-07 08:12 | DI.CT.S_ITS ---
PROCEDURE: CT ANGIO HEAD AND NECK INDICATIONS: Left side weakness, wake up stroke, Last well 10pm TECHNIQUE: After the administration of intravenous contrast, 1 mm thick sections acquired from the aortic arch through the [place] of [place]. 3-dimensional eswrjks-zuyqsldaz-jtbtfqbfdj (MIP) and/or volume rendering reformats were acquired of the central intracranial vasculature and neck separately. For radiation dose reduction, the following was used: automated exposure control, adjustment of mA and/or kV according to patient size. COMPARISON: [facility], CT, CT STROKE, 02/07/2025, 8:19. FINDINGS: Image quality: Diagnostic. Cerebral CT Angiogram: Internal carotid arteries: No acute findings. Intracranial ICA are patent with no significant stenosis. No occlusion. No aneurysm. Anterior cerebral arteries: Unremarkable. No significant stenosis. No occlusion. No aneurysm. Middle cerebral arteries: Unremarkable. No significant stenosis. No occlusion. No aneurysm. Posterior cerebral arteries: Unremarkable. No significant stenosis. No occlusion. No aneurysm. Basilar artery: Unremarkable. No significant stenosis. No occlusion. No aneurysm. Vertebral arteries: Unremarkable as visualized. Dural venous sinuses: Unremarkable given phase of enhancement. Other: Arterial phase appearance of the brain parenchyma is unremarkable. Neck CT Angiogram: Internal carotid arteries: Unremarkable. No significant stenosis. No dissection or occlusion. Common carotid arteries: Unremarkable. No significant stenosis. No dissection or occlusion. External carotid arteries: Unremarkable. No occlusion. Vertebral arteries: Unremarkable. No significant stenosis. No dissection or occlusion. Aortic Arch and Mediastinum: Partially visualized aortic arch unremarkable without evidence of aneurysm. Origins of the great vessels unremarkable. Other: Arterial phase soft tissues of the neck and chest are unremarkable. IMPRESSION: No significant intracranial arterial abnormality is seen. No significant abnormality is seen within the arteries of the neck. Any quantitative measurements of stenosis were performed using NASCET criteria. Dictated by: Mike Rao M.D. on 02/07/2025 at 8:34 Approved by: Mike Rao M.D. on 02/07/2025 at 8:38
--- NOTE | 2025-02-07 08:15 | ED_ITS ---
HPI - General Adult General Chief complaint: Neuro Symptoms/Deficit Stated complaint: code stroke L sided deficits Time Seen by Provider: 02/07/25 08:08 History of Present Illness HPI narrative: 79-year-old woman with a history of osteoporosis and no other issues including coronary artery disease or stroke went to bed last night at 10:00 p.m. in her usual state of health and woke up this morning 7:00 a.m.. In retrospect, she thinks she woke up around 3:00 a.m. and had difficulty rolling over in bed due to weakness but did not pay much attention to that. When she went to get out of bed she slid off the side of the bed noting that the left side of her body was weak. Medics note slight left facial droop, slurred speech, left arm and left leg weakness and she is transported to the emergency department. Code stroke was activated prior to arrival. she states that she has not been having any fevers, cough, chills, headaches, TIA type symptoms, chest pain or palpitations Related Data Previous Rx's ?Medication ?Instructions ?Recorded ferrous gluconate 236 mg (27 mg 236 mg PO DAILY #90 ta bs 09/18/24 iron) tablet risedronate 35 mg tablet (Actonel) 35 mg PO QWEEK #12 tabs 09/18/24 Allergies Allergy/AdvReac Type Severity Reaction Status Date / Time No Known Drug Allergies Allergy Verified 08/06/24 08:43 Review of Systems Review of Systems Narrative: Pertinent positive and negative findings as per HPI Patient History Medical History History of peptic ulcer disease Medicare annual wellness visit, subsequent Dizziness Constipation GERD (gastroesophageal reflux disease) Recurrent UTI Hyperlipidemia Pre-diabetes Acid reflux History of palpitations Former smoker Bruises easily History of headache Constipation Cataract (2012) Colon polyps (2013) Chicken pox (1949) Mumps (1952) Dupuytren's disease (~1989) Osteoporosis (12/18/15) Surgical History History of colonoscopy with polypectomy (2013) Anesthesia History of cataract removal with insertion of prosthetic lens (2012) Status post delivery (1987) Family History Father Diabetes mellitus Grandfather Heart disease Grandmother Stroke Mother Osteoporosis Grandmother Mental health problem Dementia Sister Bone cancer Brother No problems noted. Brother No problems noted. Grandfather Ruptured appendix Sister No problems noted. Social History household members: spouse alcohol intake frequency: 0-2 drinks per day Exam Initial Vital Signs Initial Vital Signs: Vital Signs Temperature 98.2 F 02/07/25 08:13 Pulse Rate 69 02/07/25 08:13 Respiratory Rate 18 02/07/25 08:13 Blood Pressure 169/74 H 02/07/25 08:13 Pulse Oximetry 95 02/07/25 08:13 Oxygen Delivery Method Room Air 02/07/25 08:13 General: in no acute distress. Able to give a complete and coherent history. Well-nourished well-developed HEENT: Moist mucous membranes, normal sclera with reactive pupils, Respiratory: Lungs are clear to auscultation, no wheezing no rales no rhonchi. Full and symmetrical air movement Cardiac: Regular rate and rhythm no murmurs no bruits Abdomen: Soft, nontender, no rebound or guarding, no flank pain Skin: Warm and dry, no rashes Neurologic: Mild left facial droop and weakness in upper and lower extremities. No sensory changes. Very mild dysarthria Extremities: No trauma, well perfused Psych: Cooperative, appropriate insight and affect NIH Stroke Scale/Score (NIHSS) RESULT SUMMARY: 5 points NIH Stroke Scale INPUTS: 1A: Level of consciousness ?> 0 = Alert; keenly responsive 1B: Ask month and age ?> 0 = Both questions right 1C: 'Blink eyes' & 'squeeze hands' ?> 0 = Performs both tasks 2: Horizontal extraocular movements ?> 0 = Normal 3: Visual chong ?> 0 = No visual loss 4: Facial palsy ?> 1 = Minor paralysis (flat nasolabial fold, smile asymmetry) 5A: Left arm motor drift ?> 1 = Drift, but doesn't hit bed 5B: Right arm motor drift ?> 0 = No drift for 10 seconds 6A: Left leg motor drift ?> 1 = Drift, but doesn't hit bed 6B: Right leg motor drift ?> 0 = No drift for 5 seconds 7: Limb Ataxia ?> 1 = Ataxia in 1 Limb 8: Sensation ?> 0 = Normal; no sensory loss 9: Language/aphasia ?> 0 = Normal; no aphasia 10: Dysarthria ?> 1 = Mild-moderate dysarthria: slurring but can be understood 11: Extinction/inattention ?> 0 = No abnormality Course Orders Ordered: ED Orders 02/07/25 08:[address] angio head and neck Stat Complete Blood Count AUTO DIFF Stat Comprehensive Metabolic Panel Stat PTT Partial Thromboplastin Toro Stat Prothrombin Time INR Stat Troponin & CK Cardiac Panel Stat Urinalysis and Microscopic Stat Urine Drug Screen, Rapid Stat EKG-12 Lead Stat 02/07/25 09:07 MR head/brain wo con Stat Discontinued Medications Aspirin (Aspirin 81 Mg Chew Tab) 324 mg PO NOW ONE Stop: 02/07/25 08:50 Last Admin: 02/07/25 08:59 Dose: 324 mg Vital Signs Vital signs: Vital Signs - 8 hr 02/07/25 08:13 02/07/25 08:21 02/07/25 08:25 Temperature 98.2 F Pulse Rate 69 69 64 Respiratory Rate 18 16 13 Blood Pressure 169/74 H Pulse Oximetry 95 97 Oxygen Delivery Method Room Air 02/07/25 08:25 02/07/25 08:30 02/07/25 08:31 Temperature Pulse Rate 71 78 Respiratory Rate 25 H Blood Pressure 183/84 H Pulse Oximetry 97 97 Oxygen Delivery Method 02/07/25 08:31 Temperature Pulse Rate Respiratory Rate Blood Pressure 161/87 H Pulse Oximetry Oxygen Delivery Method Medical Decision Making Lab Data 02/07/25 08:20 02/07/25 08:20 Labs: Lab Results 02/07/25 02/07/25 Range/Units 08:11 08:20 WBC 4.5 (4.5-11.0) X10^3/uL RBC 3.00 L (4.0-5.2) X10^6/uL Hgb 9.0 L (12.0-16.0) g/dL Hct 26.6 L (36-46) % MCV 88.7 (80-100) fL MCH 30.1 (26-34) PG MCHC 34.0 (30-36) % RDW 15.7 H (11.6-14.8) % Plt Count 298 (150-400) X10^3/uL Neut % (Auto) 63.6 (50-75) % Lymph % (Auto) 20.5 L (25-40) % [place] % (Auto) 13.8 (3-14) % Eos % (Auto) 1.5 L (2-4) % Baso % (Auto) 0.6 (0-2) % Neut # (Auto) 2900 (4874-6362) /uL Lymph # (Auto) 900 L (4516-4160) /uL [place] # (Auto) 600 (0-900) /uL Eos # (Auto) 100 (0-450) /uL Baso # (Auto) 0 (0-100) /uL PT 11.0 (9.4-12.5) SECONDS INR 1.0 (0.9-1.3) APTT 26 (25.1-36.5) SECONDS Sodium 128 L (137-145) mmol/L Potassium 4.0 (3.4-5.1) mmol/L Chloride 98 (98-107) mmol/L Carbon Dioxide 25 (22-32) mmol/L BUN 12 (7-17) mg/dL Creatinine 0.60 (0.52-1.04) mg/dL Estimated GFR > 60 (>60) mL/min BUN/Creatinine Ratio 20.0 (6-22) Glucose 89 (70-99) mg/dL POC Whole Bld Glucose 93 (70-99) mg/dL Calcium 8.1 L (8.4-10.2) mg/dL Total Bilirubin 0.2 (0.2-1.3) mg/dL AST 27 (14-36) IU/L ALT 13 (<35) IU/L Alkaline Phosphatase 61 (38-126) U/L Total Creatine Kinase 43 (30-135) U/L Troponin I < 0.012 (0.01-0.034) ng/mL Total Protein 6.5 (6.3-8.2) g/dL Albumin 3.2 L (3.5-5.0) g/dL Globulin 3.3 (1.7-4.1) g/dL Albumin/Globulin Ratio 1.0 (1.0-2.8) Point of Care Testing Glucose POC 93 Point of care testing: Point of Care Testing Glucose POC [address] angiogram head and neck: Radiologist's Impression: PROCEDURE: CT ANGIO HEAD AND NECK INDICATIONS: Left side weakness, wake up stroke, Last well 10pm TECHNIQUE: After the administration of intravenous contrast, 1 mm thick sections acquired from the aortic arch through the [place] of [place]. 3-dimensional eleqyhk-oyhbwmckg-yxjphbjmda (MIP) and/or volume rendering reformats were acquired of the central intracranial vasculature and neck separately. For radiation dose reduction, the following was used: automated exposure control, adjustment of mA and/or kV according to patient size. COMPARISON: [facility], CT, CT STROKE, 02/07/2025, 8:19. FINDINGS: Image quality: Diagnostic. Cerebral CT Angiogram: Internal carotid arteries: No acute findings. Intracranial ICA are patent with no significant stenosis. No occlusion. No aneurysm. Anterior cerebral arteries: Unremarkable. No significant stenosis. No occlusion. No aneurysm. Middle cerebral arteries: Unremarkable. No significant stenosis. No occlusion. No aneurysm. Posterior cerebral arteries: Unremarkable. No significant stenosis. No occlusion. No aneurysm. Basilar artery: Unremarkable. No significant stenosis. No occlusion. No aneurysm. Vertebral arteries: Unremarkable as visualized. Dural venous sinuses: Unremarkable given phase of enhancement. Other: Arterial phase appearance of the brain parenchyma is unremarkable. Neck CT Angiogram: Internal carotid arteries: Unremarkable. No significant stenosis. No dissection or occlusion. Common carotid arteries: Unremarkable. No significant stenosis. No dissection or occlusion. External carotid arteries: Unremarkable. No occlusion. Vertebral arteries: Unremarkable. No significant stenosis. No dissection or occlusion. Aortic Arch and Mediastinum: Partially visualized aortic arch unremarkable without evidence of aneurysm. Origins of the great vessels unremarkable. Other: Arterial phase soft tissues of the neck and chest are unremarkable. IMPRESSION: No significant intracranial arterial abnormality is seen. No significant abnormality is seen within the arteries of the neck. Any quantitative measurements of stenosis were performed using NASCET criteria. Dictated by: Mike Rao M.D. on 02/07/2025 at 8:34 MDM Narrative Medical decision making narrative: CC: Left-sided weakness noted upon awakening Complicating co-morbidities: Osteoporosis only Data collected from: patient, medics Medical records reviewed: Primary care note from September of 2024 reviewed discussion of anemia and reflux Differential considered: Stroke, intracranial infection, intracranial hemorrhage, mass or tumor Exam documented above, pertinent findings include: Mild left facial arm and leg weakness, minimal dysarthria. Remainder of exam is benign. NIH score is 5 Lab Test results independently reviewed as above. Pertinent findings: CBC shows anemia with hemoglobin at 9.0 and hematocrit at 26.6. Chemistries show mild hyponatremia at 1:28 a.m., comparison is 131. Renal function is appropriate electrolytes are otherwise unremarkable. Liver studies are reassuring PT and PTT are not elevated Independently reviewed EKG: EKG shows sinus rhythm at a rate of 64, no acute ischemic changes Imaging studies independently reviewed: CT scan of the head is unremarkable. Discussed in real-time with radiology at 8:[address] angiogram of the head and neck does not show acute pathology Consultations: Reviewed with Dr. Hunter hospitalist. Patient will be admitted. He did ask that the case be reviewed with our stroke Neurology team. They are called at 9:09 a.m. [address] [employer] [address] [facility]: aleksandar Weber studies in real time. dual antiplatlet therapy. Consider cardiac monitoring upon discharge simply given her age Treatments: Aspirin and Plavix given Re-evaluations: 9am re-evaluation. No change in symptoms. Explained findings, need for further workup, as well as need for hospitalization with patient and her . Questions are answered Discussion: 79-year-old woman with minimal medical history. There was a note of anemia that was discussed with her primary care doctor in September. Hemoglobin is currently 9. She does not describe any active bleeding. She likely had a stroke sometime during the evening, last known well as 10:00 p.m. and she awoke at 6:30 a.m. this morning and slid off the edge of her bed, no injury, because of her left-sided weakness. Initial NIH score of 5 which remains consistent through her ER visit. Discussed with her hospitalization for further evaluation of her stroke in anticipation of MRI, probable echocardiogram and beginning appropriate treatments for secondary stroke prevention. Blood pressure is currently elevated at 160 , we will allow permissive hypertension this time and further evaluate for the need for antihypertensives as an outpatient. Additional Information: Stroke & Stroke Rehabilitation: Thrombolytic Therapy [] The patient, who arrived at the hospital within 3.5 hours of time last known well, was diagnosed with subacute or acute ischemic stroke. An IV thrombolytic therapy was initiated within 4.5 hours of time last known well. [SATISFIES MIPS PERFORMANCE] [] The patient was diagnosed with subacute or acute ischemic stroke. An IV thrombolytic therapy was not initiated within 4.5 hours of last known well due to [select]: [MIPS PERFORMANCE EXCEPTION/EXCLUSION] [X] Patient arrived more than 3.5 hours after last known well time, or the time last known well is unknown [] Patient has a medical contra-indication or reason for not administering an IV thrombolytic therapy (ex. neurologist does not believe a thrombolytic is appropriate, active internal bleeding, serious head trauma, acute current or history of intracranial hemorrhage, uncontrollable hypertension, seizure at onset of stroke, CVA in last 3 months, Intracranial or intraspinal surgery in last 3 months, bleeding disorder, thrombocytopenia < 100,000, early radiographic ischemic changes on head CT, INR > 1.7, intracranial neoplasm, AVM, or aneurysm, patient in stroke trial, patient admitted for elective carotid intervention) [] Patient or family declined an IV thrombolytic [] The patient, who arrived at the hospital within 3.5 hours of time last known well, was diagnosed with subacute or acute ischemic stroke. An IV thrombolytic was not initiated within 4.5 hours of time last known well. [DOES NOT SATISFY MIPS PERFORMANCE] Discharge Plan Departure Patient Disposition: Admitted As Inpatient Clinical Impression: Stroke Qualifiers: CVA mechanism: unspecified Qualified Code(s): I63.9 - Cerebral infarction, unspecified Admit Date/Time: 02/07/25 09:17 Admit Provider: Mich Hunter
[2025-02-07 08:35] LABS: Add Manual Diff / Slide Review NO; Hematocrit 26.6 % (36-46); Hemoglobin 9.0 g/dL (12.0-16.0); Lymphocytes Absolute Auto 900 /uL (1100-4500); Mean Corpuscular HGB Conc 34.0 % (30-36); Mean Corpuscular Hemoglobin 30.1 PG (26-34); Mean Corpuscular Volume 88.7 fL (80-100); Platelet Count 298 X10^3/uL (150-400)
[2025-02-07 08:41] LABS: INR 1.0 (0.9-1.3); Prothrombin Time 11.0 SECONDS (9.4-12.5)
[2025-02-07 08:43] LABS: PTT Partial Thromboplastin Tim 26 SECONDS (25.1-36.5)
[2025-02-07 08:45] LABS: Alanine Aminotransferase 13 IU/L (<35); Albumin 3.2 g/dL (3.5-5.0); Albumin Globulin Ratio 1.0 (1.0-2.8); Alkaline Phosphatase 61 U/L (38-126); Blood Urea Nitrogen 12 mg/dL (7-17); Calcium 8.1 mg/dL (8.4-10.2); Carbon Dioxide 25 mmol/L (22-32); Chloride 98 mmol/L (98-107); Creatine Kinase 43 U/L (30-135); Estimated Glomerular Filt Rate > 60 mL/min (>60); Globulin 3.3 g/dL (1.7-4.1); Glucose 89 mg/dL (70-99); Potassium 4.0 mmol/L (3.4-5.1); Sodium 128 mmol/L (137-145); Total Protein 6.5 g/dL (6.3-8.2)
[2025-02-07 08:58] LABS: HEMOLYSIS 34 (0-50); Troponin I < 0.012 ng/mL (0.01-0.034)
[2025-02-07] MEDS: ASPIRIN 81 MG CHEW TAB 324 MG PO (08:59)
--- NOTE | 2025-02-07 09:07 | DI.MRI.S_ITS ---
PROCEDURE: MR HEAD/BRAIN WO CON INDICATIONS: stroke TECHNIQUE: Noncontrast axial T1 spin echo, axial T2 fast spin echo, sagittal and axial FLAIR, coronal T2 fast spin echo, axial gradient echo, axial diffusion and ADC through the brain. COMPARISON: [facility], CT, CT STROKE, 02/07/2025, 8:19. FINDINGS: Image quality: Diagnostic CSF spaces: Basal cisterns are patent. Lateral ventricles are symmetric. Volume: Volume loss. Periventricular white matter signal abnormality most commonly seen with small vessel disease. These findings are mild Brain: Punctate areas of diffusion restriction seen in the right-sided basal ganglia and internal capsule, with mild associated FLAIR abnormality. No acute hemorrhage. Craniofacial structures: No significant paranasal sinus opacity. IMPRESSION: Punctate infarcts involving the right basal ganglia and internal capsule. Dictated by: Trace Heaton M.D. on 02/07/2025 at 10:44 Approved by: Trace Heaton M.D. on 02/07/2025 at 10:46
[2025-02-07 09:17] LABS: Appearance Urine UA CLEAR; Bilirubin Urine UA NEGATIVE (NEGATIVE); Color Urine UA YELLOW; Glucose Urine UA NEGATIVE (Negative); Ketones Urine UA NEGATIVE (NEGATIVE); Leukocyte Esterase Urine UA NEGATIVE (NEGATIVE); Nitrite Urine UA NEGATIVE (Negative); Occult Blood Urine UA NEGATIVE (Negative); Protein Urine UA NEGATIVE (Negative); Specific Gravity Urine UA 1.010 (1.000-1.035); Urobilinogen Urine UA 0.2 E.U./dL (0.2); pH Urine UA 6.0 (4.5-8.0)
[2025-02-07 09:18] LABS: UR Morphine/Opiate cutoff 300 Negative (Negative); Ur Specific Gravity Normal (Normal); Urine MDMA Negative (Negative); Urine Methamphetamines Negative (Negative); Urine Tetrahydrocannabinol Negative (Negative); Urine Tricyclic Antidepressant Negative (Negative)
[2025-02-07 09:20] LABS: Culture Indicated Urine Cult Not Indicated
[2025-02-07] MEDS: CLOPIDOGREL 75 MG TABLET 300 MG PO (09:25)
--- NOTE | 2025-02-07 09:44 | DI.ECHO.S_ITS ---
[facility]+ [facility] : : [address] : : [address] : : [address] : : Phone: [phone] Echocardiogram Report + + :Name: JJ CHÁVEZ Study Date: 02/07/2025 Height: 63 in : :[facility] ReadingLocation: Weight: 135 lb : : Gender: Female BSA: 1.6 m2 : :: 1945 Age: 79 yrs BP: 168/75 mmHg: :Reason For Study: CVA : :Ordering Physician: ELIZABETH, : :JASON Bernstein Performed By: Maximiliano Urena : :Referring: JASON JOHNSON : + + Interpretation Summary Normal sinus rhythm The left ventricle is normal in size and wall thickness. Left ventricular systolic function is normal. The ejection fraction is estimated to be 60-65%. No thrombus. The right ventricle is normal in size and function. Doppler interrogation and injection of saline echo contrast shows no evidence for an interatrial shunt. There is mild to moderate tricuspid regurgitation. Compared to the prior echo exam, there has been an increase in TR severity. The right ventricular systolic pressure is estimated to be at least 23 mmHg based on an estimated right atrial pressure of 3 mm Hg. Procedure: A two-dimensional transthoracic echocardiogram with color flow and Doppler was performed. The study quality was technically adequate. A saline contrast injection was performed to assess for cardiac shunting. Comparison is made with the echocardiogram of 12/10/2018. The patient was in normal sinus rhythm during the exam. Left Ventricle: The left ventricle is normal in size and wall thickness. There is no thrombus. Left ventricular systolic function is normal. The ejection fraction is estimated to be 60-65%. There are no focal wall motion abnormalities. Grade I diastolic dysfunction with normal left atrial pressure. Right Ventricle: The right ventricle is normal in size and function. Atria: The left atrial size is normal. Artifact seen. Right atrial size is normal. Doppler interrogation and injection of saline echo contrast shows no evidence for an interatrial shunt. Bubble study was captured on image frame(s) # [id number]. Bubble study performed per protocol, negative bubble study with no bubbles visualized in the left atrium or left ventricle. Mitral Valve: The mitral valve leaflets appear to open well. There is mild mitral annular calcification. The mitral valve leaflets are mildly calcified. There is no mitral valve stenosis. There is mild mitral regurgitation. The mitral regurgitant jet is eccentrically directed. Aortic Valve: The aortic valve is trileaflet. The aortic valve opens well. There is no aortic valve stenosis. No aortic regurgitation is present. Tricuspid Valve: The tricuspid valve is normal. There is mild to moderate tricuspid regurgitation. The right ventricular systolic pressure is estimated to be at least 23 mmHg based on an estimated right atrial pressure of 3 mm Hg. Compared to the prior echo exam, there has been an increase in TR severity. Pulmonic Valve: The pulmonic valve is not well seen, but is grossly normal. There is trace pulmonic regurgitation. Great Vessels: The aortic root is normal size. The ascending aorta is normal in size. The aortic arch could not be visualized. The pulmonary artery is normal size. The IVC is of normal diameter and collapses greater than 50% with a sniff. This suggests a low right atrial pressure of 3 mm Hg. Pericardium/ Pleura There is no pericardial effusion. MMode/2D Measurements & Calculations LVIDd: 4.4 cm LVOT diam: 1.9 cm LVIDs: 2.8 cm Ao root diam: 2.9 cm FS: 37.2 % asc Aorta Diam: 3.0 cm EPSS: 0.48 cm IVSd: 0.86 cm LVPWd: 0.87 cm LV zaldivar. diameter/BSA (cm/m^2): 2.7 LV sys. diameter/BSA (cm/m^2): 1.7 LA A2 area: 13.2 cm2 RA long axis: 4.4 cm LA A4 area: 15.3 cm2 RA area: 9.7 cm2 LA length (vol): 5.4 cm RA vol: 18.2 ml LA vol: 32.0 ml RA : 11.1 ml/m2 LA vol index: 19.5 ml/m2 IVC diam: 1.2 cm RVD1 (basal): 2.9 cm RVD2 (mid): 2.1 cm TAPSE: 2.1 cm Doppler Measurements & Calculations Ao V2 max: 139.2 cm/sec LVOT Max Srinath: 100.2 cm/sec Ao V2 mean: 91.1 cm/sec LV V1 max P.0 mmHg Ao max P.7 mmHg LV V1 VTI: 17.3 cm Ao mean P.8 mmHg ALEX(I,D): 1.9 cm2 Ao V2 VTI: 25.7 cm ALEX(V,D): 2.0 cm2 sev ratio: 0.67 ALEX indexed to BSA (cm^2/m^2): 1.1 MV E max srinath: 97.1 cm/sec TR max srinath: 221.9 cm/sec MV A max srinath: 95.7 cm/sec TR max P.7 mmHg MV E/A: 1.0 PA V2 max: 103.8 cm/sec Med Peak E' Srinath: 5.6 cm/sec PA V2 mean: 70.6 cm/sec E/E' med: 17.2 PA mean P.3 mmHg Lat Peak E' Srinath: 5.8 cm/sec PA pr(Accel): 50.7 mmHg E/E' lat: 16.7 E/e' average: 17.0 MV dec time: 0.25 sec SV(LVOT): 48.4 ml Qp/Qs (V,Ao): 1.0/4.1 Qp/Qs (V,LVOT): 1.0/1.2 Reading Physician:05:55 PM
[2025-02-07 10:10] LABS: Cholesterol 173 mg/dL (140-199); HDL Cholesterol 65 mg/dL (40-60); Triglycerides 82 mg/dL (35-150)
[2025-02-07 10:12] LABS: Hemoglobin A1C% w Est Avg Glu 5.4 % (4.0-6.0)
--- NOTE | 2025-02-07 10:50 | PM.HP.1 ---
History of Present Illness History of Present Illness Date Patient Seen: 02/07/25 Time Patient Seen: 10:50 Chief complaint: code stroke L sided deficits Narrative: She was a 79-year-old female who has a history of hypertension and no previous history of stroke. She lives on [facility] with her . She went to bed last night, feeling normal. She would some trouble repositioning at about 4 in the morning. Her found her on the floor at about 630 with a left-sided weakness and a facial droop. She was transported via EMS to the emergency department. CTA and CT head negative. Left-sided weakness, facial droop, and dysarthria. MRI ordered, results pending. She was improving but still does have a left facial droop and very mild left-sided weakness. She denies headache. [facility] Medical History History of peptic ulcer disease Medicare annual wellness visit, subsequent Dizziness Constipation GERD (gastroesophageal reflux disease) Recurrent UTI Hyperlipidemia Pre-diabetes Acid reflux History of palpitations Former smoker Bruises easily History of headache Constipation Cataract (2012) Colon polyps (2013) Chicken pox (1949) Mumps (1952) Dupuytren's disease (~1989) Osteoporosis (12/18/15) Surgical History History of colonoscopy with polypectomy (2013) Anesthesia History of cataract removal with insertion of prosthetic lens (2012) Status post delivery (1987) Family History Father Diabetes mellitus Grandfather Heart disease Grandmother Stroke Mother Osteoporosis Grandmother Mental health problem Dementia Sister Bone cancer Brother No problems noted. Brother No problems noted. Grandfather Ruptured appendix Sister No problems noted. Social History household members: spouse Meds Home Medications and Allergies Home Medications ?Medication ?Instructions ?Recorded ?Confirmed ?Type ferrous gluconate 236 mg (27 mg 236 mg PO DAILY #90 tabs 09/18/24 09/18/24 Rx iron) tablet risedronate 35 mg tablet (Actonel) 35 mg PO QWEEK #12 tabs 06/04/25 06/04/25 Rx Allergies Allergy/AdvReac Type Severity Reaction Status Date / Time No Known Drug Allergies Allergy Verified 08/06/24 08:43 Review of Systems Review of Systems Narrative: All else reviewed and otherwise unremarkable except as noted in the history and physical. Exam Vital Signs (past 8 hours): - 02/07/25 08:13 02/07/25 08:21 02/07/25 08:25 Temperature 98.2 F Pulse Rate 69 69 64 Respiratory Rate 18 16 13 Blood Pressure 169/74 H Pulse Oximetry 95 97 Oxygen Delivery Method Room Air 02/07/25 08:25 02/07/25 08:30 02/07/25 08:31 Temperature Pulse Rate 71 78 Respiratory Rate 25 H Blood Pressure 183/84 H Pulse Oximetry 97 97 Oxygen Delivery Method 02/07/25 08:31 02/07/25 09:00 02/07/25 09:00 Temperature Pulse Rate 64 Respiratory Rate Blood Pressure 161/87 H 164/77 H Pulse Oximetry 97 Oxygen Delivery Method 02/07/25 09:30 02/07/25 09:30 Temperature Pulse Rate 61 Respiratory Rate 18 Blood Pressure 168/75 H Pulse Oximetry 97 Oxygen Delivery Method Oxygen Delivery Method Room Air Narrative Exam Narrative: NAD, alert and oriented, fluent speech, calm. Normocephalic skull, EOMI, anicteric sclera, symmetric pupils. Oropharynx unremarkable, no droop. Neck supple, midline trachea, no adenopathy. Lungs clear, normal rate and effort. Heart regular, no murmur gallop or rub. Abdomen is soft, non distended and non tender. Extremities are free of edema. Skin is free of rash or lesions. Joints are not swollen or deformed. Judgment appears to be normal. Neuro: Normal speech, judgment. She does have mild slurring. Left facial droop. Very mild left arm and leg weakness. She can liver straight leg raise for over 5 seconds without difficulty. She can hold both arms up in the air. Normal visual chong, conjugate gaze. Objective ECG Impression: Intervals [place] Rate: 64 P: 51 NV: 144 QRS: -28 QRSD: 94 T: 52 QT: 402 QTc: 414 Interpretive Statements Normal sinus rhythm Septal infarct , age undetermined Imaging CT brain: CTA head and neck: Brain MRI:: Radiologist's impression: CT brain: No acute intracranial pathology. CTA head and neck: No significant intracranial arterial abnormality is seen. No significant abnormality is seen within the arteries of the neck. MR brain: Punctate infarcts involving the right basal ganglia and internal capsule. Labs 02/07/25 08:20 02/07/25 08:20 Labs: Laboratory Results - last 24 hr 02/07/25 02/07/25 02/07/25 08:11 08:20 09:10 WBC 4.5 RBC 3.00 L Hgb 9.0 L Hct 26.6 L MCV 88.7 MCH 30.1 MCHC 34.0 RDW 15.7 H Plt Count 298 Neut % (Auto) 63.6 Lymph % (Auto) 20.5 L [place] % (Auto) 13.8 Eos % (Auto) 1.5 L Baso % (Auto) 0.6 Neut # (Auto) 2900 Lymph # (Auto) 900 L [place] # (Auto) 600 Eos # (Auto) 100 Baso # (Auto) 0 PT 11.0 INR 1.0 APTT 26 Sodium 128 L Potassium 4.0 Chloride 98 Carbon Dioxide 25 BUN 12 Creatinine 0.60 Estimated GFR > 60 BUN/Creatinine Ratio 20.0 Glucose 89 POC Whole Bld Glucose 93 Hemoglobin A1c 5.4 Calcium 8.1 L Total Bilirubin 0.2 AST 27 ALT 13 Alkaline Phosphatase 61 Total Creatine Kinase 43 Troponin I < 0.012 Total Protein 6.5 Albumin 3.2 L Globulin 3.3 Albumin/Globulin Ratio 1.0 Triglycerides 82 Cholesterol 173 LDL Cholesterol, Calc 92 HDL Cholesterol 65 H Urine Color Yellow Urine Appearance Clear Urine pH 6.0 Ur Specific [place] 1.010 Urine Protein Negative Urine Glucose (UA) Negative Urine Ketones Negative Urine Occult Blood Negative Urine Nitrate Negative Urine Bilirubin Negative Urine Urobilinogen 0.2 Ur Leukocyte Esterase Negative Urine RBC None seen Urine WBC None seen Ur Squamous Epith Cells 1-5 /hpf Urine Bacteria None seen Ur Culture Indicated? Cult not indicated Vol Urine Centrifuged 10ml (spun) U Opiates 300ng/mL cut Negative Ur Oxycodone Screen Negative Urine Methadone Screen Negative Ur Barbiturates Screen Negative U Tricyclic Antidepress Negative Ur Phencyclidine Scrn Negative Ur Amphetamines Screen Negative U Methamphetamines Scrn Negative Ur MDMA Scrn (Ecstasy) Negative U Benzodiazepines Scrn Negative Urine Cocaine Screen Negative U Marijuana (THC) Screen Negative Urine Specific [place] Ur Creatinine 02/07/25 09:10 WBC RBC Hgb Hct MCV MCH MCHC RDW Plt Count Neut % (Auto) Lymph % (Auto) [place] % (Auto) Eos % (Auto) Baso % (Auto) Neut # (Auto) Lymph # (Auto) [place] # (Auto) Eos # (Auto) Baso # (Auto) PT INR APTT Sodium Potassium Chloride Carbon Dioxide BUN Creatinine Estimated GFR BUN/Creatinine Ratio Glucose POC Whole Bld Glucose Hemoglobin A1c Calcium Total Bilirubin AST ALT Alkaline Phosphatase Total Creatine Kinase Troponin I Total Protein Albumin Globulin Albumin/Globulin Ratio Triglycerides Cholesterol LDL Cholesterol, Calc HDL Cholesterol Urine Color Urine Appearance Urine pH Normal Ur Specific [place] Urine Protein Urine Glucose (UA) Urine Ketones Urine Occult Blood Urine Nitrate Urine Bilirubin Urine Urobilinogen Ur Leukocyte Esterase Urine RBC Urine WBC Ur Squamous Epith Cells Urine Bacteria Ur Culture Indicated? Vol Urine Centrifuged U Opiates 300ng/mL cut Ur Oxycodone Screen Urine Methadone Screen Ur Barbiturates Screen U Tricyclic Antidepress Ur Phencyclidine Scrn Ur Amphetamines Screen U Methamphetamines Scrn Ur MDMA Scrn (Ecstasy) U Benzodiazepines Scrn Urine Cocaine Screen U Marijuana (THC) Screen Urine Specific [place] Normal Ur Creatinine Normal Assessment & Plan Assessment & Plan narrative: 1. Right basal ganglia ischemic stroke, present on admission and active. 2. Uncontrolled hypertension, currently allowing permissive hypertension. Plan: -discussed with stroke team. -continue dual antiplatelet therapy, 21 days. High dose statin. -echo -PT and OT assessments. Full resuscitation Anticipate 2 midnights in the hospital, supports inpatient status is proxy decision maker Time-Based Coding :: [TOTAL MINUTES] spent with patient and on the chart (including review of chart, obtaining history, exam, reviewing outside data, placing orders, documenting exam and treatment plan, and counseling patient) on [DATE]. Quality MIPS - Admit I confirm the patient?s Advance Care Plan is present, Code status is documented, Surrogate decision maker is in patient?s record [If Yes, STOP here]: Yes MIPS - Meds 'Current medications' to include all prescriptions, [id number] products, herbals, cannabis/cannabidiol products, and vitamin/mineral/dietary (nutritional) supplements. I have utilized all available resources to obtain, update, or review the patient?s current medications. [If Yes, STOP here]: Yes
[2025-02-07] MEDS: SODIUM CHLORIDE 0.9% 1,000 ML 100 ML IV (12:05)
--- NOTE | 2025-02-07 12:10 | ST.IPCSEOM ---
Visit Care Team Role Provider Type Darrel Baker DO Family Provider Physician Primary Care Provider Specialty: Family Practice Address: [address] [place] [address], [id number] Email: Tracy Dodd MD Emergency Provider Physician Referring Provider Specialty: Emergency Medicine Address: [address] [place] [address], [id number] Email: Mich Hunter MD Admit Provider Physician Attending Provider Specialty: Internal Medicine Address: [address] [place] [address], [id number] Email: [email or web address] Diagnoses Cerebral infarction, unspecified (02/07/25) Past Medical History (Last Reviewed 02/07/25 @ 10:51 by Mich Hunter MD) Acid reflux (Medical) occasionally Bruises easily (Medical) Cataract (Medical 2012) Chicken pox (Medical 1949) Colon polyps (Medical 2013) Constipation (Medical) Constipation (Medical) Dizziness (Medical) Dupuytren's disease (Medical ~1989) Former smoker (Social Hx) Quit 1972 GERD (gastroesophageal reflux disease) (Medical) History of headache (Medical) History of palpitations (Medical) Holter WNL per patient History of peptic ulcer disease (Medical) Hyperlipidemia (Medical) Medicare annual wellness visit, subsequent (Medical) Mumps (Medical 1952) Osteoporosis (Medical 12/18/15) Pre-diabetes (Medical) Recurrent UTI (Medical) Speech-Language Pathology Swallow 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 Hunter Reason for Referral CVA Setting Assessment Location Acute Care Visit Type Note Type Initial evaluation Patient Information Identification Type Name,Wristband History Per H&P:he was a 79-year-old female who has a history of hypertension and no previous history of stroke. She lives on [address] with her . She went to bed last night, feeling normal. She would some trouble repositioning at about 4 in the morning. Her found her on the floor at about 630 with a left-sided weakness and a facial droop. She was transported via EMS to the emergency department. CTA and CT head negative. Left-sided weakness, facial droop, and dysarthria. MRI ordered, results pending. She was improving but still does have a left facial droop and very mild left-sided weakness. She denies headache. [facility] Medical History History of peptic ulcer disease Medicare annual wellness visit, subsequent Dizziness Constipation GERD (gastroesophageal reflux disease) Recurrent UTI Hyperlipidemia Pre-diabetes Acid reflux History of palpitations Former smoker Bruises easily History of headache Constipation Cataract (2012) Colon polyps (2013) Chicken pox (1949) Mumps (1952) Dupuytren's disease (~1989) Osteoporosis (12/18/15) Patient referred for speech therapy evaluation due to CVA, with evaluation focused on assessment of swallowing function. Subjective Pt sitting upright in bed, awake, alert, Ox3. Pt Observations present. Pt reports back to baseline in regards to speech/language. Pt able to answer all questions accurately and effectively with 100% intelligibility. Reported by Patient/Caregiver Current Diet NPO Baseline Feeding Independent in self-feeding Method The IDDSI Framework Protocol: IDDSI.1 Objective Assessment Mental Status Alert,Responsive,Cooperative Oral Integrity WFL Dentition Within normal limits Lip Function Within normal limits Tongue Function Within normal limits Jaw Function Within normal limits Respiratory Within normal limits Sufficiency Food and Liquid Trials Position During Upright (90 degrees) Assessment Liquids Trialed Thin (IDDSI 0) Solid Trials Regular (IDDSI 7) Administration Type Straw Oral Impairment Within normal limits Oral Phase Comments Pt consumed about 4 oz of thin water via straw, 1 rajan cracker and half a oatmeal raisin chewy bar. Pt able to feed self independently. For water via straw, Pt exhibited adequate suction, good oral acceptance and hydration, no overt s/s of aspiration such as coughing or choking, clear vocal quality post swallows. For solids, Pt exhibited adequate bite size and rate, good oral acceptance and containment, timely rotary mastication with no observed oral stasis, no overt s/s of aspiration such as coughing or choking. Pharyngeal Within normal limits Impairment Pharyngeal Phase See oral phase comments Comments Fatigue/Endurance Endurance WNL The IDDSI Framework Protocol: IDDSI.1 Findings Swallowing Function Within normal limits Severity of Swallow Within normal limits Impairment Prognosis Good Impact on Safety and No limitations Functioning Recommendations Instrumental No Assessment Swallowing Treatment No Recommended Solids Regular (IDDSI 7) Recommended Liquids Thin (IDDSI 0) Other Pt presents with WNL oral and pharyngeal phase of the Recommendations swallow based on clinical bedside swallow evaluation. ST recommends IDDSI 7 and IDDSI 0 with the below safe swallowing strategies below. ST recommends another referral be place if change in Pt swallow occurs. Safety Precautions/ Remain upright (90 degrees) during all oral intake, Swallowing Upright position at least 30 minutes after meals,Small Recommendations bites and sips when eating,Slow rate; swallow between bites,Alternate liquids and solids Medication As Tolerated Recommendations Education Patient/Caregiver Described results of evaluation,Patient expressed Education understanding of evaluation,Family/caregivers expressed understanding of evaluation,Patient expressed understanding of safety precautions,Family/caregivers expressed understanding of safety precautions
--- NOTE | 2025-02-07 14:10 | PT.IIE ---
Current Diagnoses Cerebral infarction, unspecified (02/07/25) Surgical History (Last Reviewed 02/07/25 @ 10:51 by Mich Hunter MD) Anesthesia History of cataract removal with insertion of prosthetic lens (2012) History of colonoscopy with polypectomy (2013) Status post delivery (1987) Medical History (Last Reviewed 02/07/25 @ 10:51 by Mich Hunter MD) Acid reflux Bruises easily Cataract (2012) Chicken pox (1949) Colon polyps (2013) Constipation Constipation Dizziness Dupuytren's disease (~1989) Former smoker GERD (gastroesophageal reflux disease) History of headache History of palpitations History of peptic ulcer disease Hyperlipidemia Medicare annual wellness visit, subsequent Mumps (1952) Osteoporosis (12/18/15) Pre-diabetes Recurrent UTI Physical Therapy Inpatient Evaluation/Re-Eval M1 PT/OT-IP Prior Functional Status Start: 02/07/25 14:52 Freq: NEEDED Status: Active Protocol: Document 02/07/25 14:10 AB (Rec: 02/07/25 15:08 [id number]) Medical Review Prior Functional Status Medical History Yes Reviewed Communication able to make needs known Mobility and Gait pt stated that she is independent with all mobilities and ambulation without AD Social History Household Members spouse Living Arrangements House Number of Floors ( One Floor Floors) Number of Stairs To 1 step to enter Enter/Railing? Home Environment High Toilet,Walk in Shower Home Equipment Front Wheel Walker Employment Status Retired Additional Social has 2 walking sticks History Comment M2 PT-IP Current Condition Start: 02/07/25 14:52 Freq: NEEDED Status: Active Protocol: Document 02/07/25 14:10 AB (Rec: 02/07/25 15:08 AB [id number]) Physical Therapy Current Condition Current Condition Evaluation Date 02/07/25 Treatment Diagnosis R CVA; difficulty in walking Onset Date 02/07/25 M3 PT-IP Subjective Start: 02/07/25 14:52 Freq: NEEDED Status: Active Protocol: Document 02/07/25 14:10 AB (Rec: 02/07/25 15:08 AB [id number]) Subjective Physical Therapy Visit Type Type Initial Evaluation Visit Start Time 14:10 Visit Stop Time 14:45 Number of SHOT BLASTER Visits 0 Physical Therapy Visit Comments Patient Comments agreeable to do PT Therapy Pain Assessment Pain Present Pain Present Denied Pain M4 PT-IP Mobility and Gait Start: 02/07/25 14:52 Freq: NEEDED Status: Active Protocol: Document 02/07/25 14:10 AB (Rec: 02/07/25 15:08 AB [id number]) PT-Bed Mobility Assessment Supine to Sit Supine to Sit Standby Assistance PT-Transfer Assessment Sit to and From Stand Sit to and from Contact Guard Assistance,1 Person Assistance,Use of Stand Upper Extremities Equipment Transfer Assistive None,Gait Belt,Front Wheeled Walker Device Orthotic/Prosthetic No Devices or Brace: Transfers Transfer Destination Toilet Transfer Technique ambulated Transfer Ability Level of Assist Contact Guard Assistance,1 Person Assistance,Use of Upper Extremities Comments Mobility Comments pt in bed and agreeable to do PT. obtained PLOF and home set up. BP: 166/78 O2 sat: 98% and TN: 78. completed supine to sit SBA. L sided facial droop. able to sit on EOB SBA. c/o pain on upper abdominal area. sit to stand CGA and ambulated in room without AD ~ 8 ft min A and cues. presents with unsteady guarded ambulation. ambulated using FWW back to EOB CGA ~ 8 ft . pt sat on EOB and rested. no c/o dizziness/ lightheadedness. agreed to ambulate more in room and completed ~ 15 ft using FWW CGA and cues. pt slightly run into chair on L side. pt sat back on EOB. sit to stand from EOB CGA and ambulated to the toilet using FWW CGA and cues for maneuvering FWW and safety. pt required assist with brief management. left pt with OT for toileting needs. educated pt on how to do step/stairs using fWW. completed up/down step stool using FWW CGA to min A and cues for techniques and safety. pt sat back on EOB. informed pt regarding level of assistance and use of FWW at this time. also informed regarding d/c plan: home with 07/11 assist and outpt PT vs Acute rehab. pt agreed to do acute rehab. Case management informed. Gait Assessment Gait Gait Assistance Contact Guard Assist,Minimum Assistance Required: Distance (Feet) 15 Able to Maintain Yes Weight Bearing Status During Gait Assistive Devices Assistive Device None,Gait Belt,Front Wheeled Walker Orthotic/Prosthetic No Devices or Brace: Gait Deviations General Gait Pattern Antalgic,Decreased Stride Length,Decreased Feet Clearance Factors Limiting Gait Function Factors Limiting Decreased Activity Tolerance,Decreased Strength, Gait Function Difficulty Following Directions,Limited Range of Motion ,Poor Safety Awareness Stair Climbing Assessment Evaluation Level of Assist On Contact Guard Assistance,Minimal Assistance Stairs Devices Stair Climbing Front Wheel Walker Assistive Devices Technique/Endurance Stair Climbing Ascend and Descend Direction Stair Climbing Step to Step Technique Number of Steps 1 Climbed Query Text: Stair Climbing Set # 2 Repetitions (reps) PT-Balance Assessment Sitting Balance and Reactions Static Sitting Normal Balance Ability Dynamic Sitting Good Balance Ability Standing Balance and Reactions Static Standing Fair Balance Ability Dynamic Standing Fair Balance Ability Device Used FWW M5 PT-IP Objective Assessments Start: 02/07/25 14:52 Freq: NEEDED Status: Active Protocol: Document 02/07/25 14:10 AB (Rec: 02/07/25 15:08 AB [id number]) Orientation Orientation/Cognition Level of Alertness Alert Orientation Name,Place,Situation Safety Awareness Decreased Safety Awareness Gross Range of Motion Lower Extremity ROM Assessment Within Functional Limits Strength Lower Extremity Strength Assessment Within Functional Limits Coordination Assessment Gross Coordination Gross Coordination Impaired Assessment Finger to Nose Test Minimal Impairment Pronation/Supination Minimal Impairment Test Muscle Tone Muscle Tone WNL Yes M6 PT-IP Treatment Start: 02/07/25 14:52 Freq: NEEDED Status: Active Protocol: Document 02/07/25 14:10 AB (Rec: 02/07/25 15:08 AB [id number]) Physical Therapy Treatment Education Education Provided Safety M7 PT-IP Assessment and Plan Start: 02/07/25 14:52 Freq: NEEDED Status: Active Protocol: Document 02/07/25 14:10 AB (Rec: 02/07/25 15:08 AB [id number]) PT Summary Assessment and Plan Potential Rehabilitation Good Potential Status of Condition Evolving at Evaluation Summary Impairments Pain,ROM,Strength,Balance,Coordination,Sensation,Tone, Cognition,Bed Mobility,Transfers,Gait,Activity Tolerance Assessment Summary pt is a 79 y/o F who is admitted for R CVA with L sided weakness. pt requiring min A for ambulation without AD and presents with unsteady guarded gait. pt able to ambulate using FWW CGA and cues and presents with L sided inattention affecting mobility and safety. Pt will benefit from acute rehab to improve overall strength and mobility. will continue to assess progress . Goals Bed Mobility Goal Independent Transfer Goal Independent,Front Wheeled Walker Gait Goal Independent,Front Wheel Walker Gait Distance 200 Other Goals up/down 1 step using FWW mod I Days to Meet Goals 10 Frequency of Treatment Frequency Of Once a Day Treatment Treatment Plan Physical Therapy Bed Mobility Training,Transfer Training,Gait Training, Treatment Plan Therapeutic Exercise,Balance Retraining,Discharge Planning,Hot or Cold Pack,Neuromuscular Re-ed, Coordination Retraining,Manual Therapy Precautions Other Precautions falls Recommendations To Nursing Amount of Assist 1 Person Assist Needed Discharge Recommendations PT Discharge Home with 07/11 Assist Available,Acute Rehab,Outpatient Recommendations PT Transportation Needs Private Vehicle at Discharge - PT assist 1
--- NOTE | 2025-02-07 15:29 | OT.IP.EVAL ---
Current Diagnoses Cerebral infarction, unspecified (02/07/25) Past Medical History (Last Reviewed 02/07/25 @ 10:51 by Mich Hunter MD) Acid reflux Bruises easily Cataract (2012) Chicken pox (1949) Colon polyps (2013) Constipation Constipation Dizziness Dupuytren's disease (~1989) Former smoker GERD (gastroesophageal reflux disease) History of headache History of palpitations History of peptic ulcer disease Hyperlipidemia Medicare annual wellness visit, subsequent Mumps (1952) Osteoporosis (12/18/15) Pre-diabetes Recurrent UTI Surgical History (Last Reviewed 02/07/25 @ 10:51 by Mich Hunter MD) Anesthesia History of cataract removal with insertion of prosthetic lens (2012) History of colonoscopy with polypectomy (2013) Status post delivery (1987) Occupational Therapy Inpatient Evaluation/Re-Eval M1 PT/OT-IP Prior Functional Status Start: 02/07/25 14:52 Freq: NEEDED Status: Active Protocol: Document 02/07/25 15:12 MELANI (Rec: 02/07/25 15:29 MELANI Desktop) Medical Review Prior Functional Status Medical History Yes Reviewed Communication able to make needs known Mobility and Gait pt stated that she is independent with all mobilities and ambulation without AD Activities of Daily pt reports being I with BADLs, IADLs to include driving Living and IADL's and community mobility Social History Household Members spouse Living Arrangements House Number of Floors ( One Floor Floors) Number of Stairs To 1 step to enter Enter/Railing? Home Environment High Toilet,Walk in Shower Home Equipment Front Wheel Walker,Straight Cane Employment Status Retired Additional Social has 2 walking sticks History Comment M2 OT-IP Current Condition Start: 02/07/25 15:12 Freq: Status: Active Protocol: Document 02/07/25 15:12 MELANI (Rec: 02/07/25 15:29 MELANI Desktop) Occupational Therapy Current Condition Current Condition Evaluation Date 02/07/25 Treatment Diagnosis CVA Diagnosis Onset Date 02/07/25 M3 OT- IP Subjective and Pain Start: 02/07/25 15:12 Freq: Status: Active Protocol: Document 02/07/25 15:12 MELANI (Rec: 02/07/25 15:29 MELANI Desktop) OT- Subjective Occupational Therapy Visit Type Type Initial Evaluation Visit Start Time 14:15 Visit Stop Time 14:50 Occupational Therapy Visit Comments Patient Comments Pt agreeable to getting up and participating in OT eval . Patient/Caregiver Pt wants to get better. Pt says she is willing to Goals consider ARU. OT Pain Assessment Pain Present Pain Present Denied Pain M4 OT- IP ADL's Start: 02/07/25 15:12 Freq: Status: Active Protocol: Document 02/07/25 15:12 [facility]LE[facility] (Rec[facility]/07/25 [facility] [id number] Comments OT Self-Feeding not a meal time Comments OT ADL-Grooming General Evaluation Grooming Ability Contact Guard Assistance Areas Needing Retrieving/Set-up of Grooming Items Assistance Comments OT Grooming Comments Pt brushes her hair while seated on set up. Pt washes her hands at sink side with CGA for balance. OT ADL-Oral Care Comments Oral Care Comments not observed OT ADL-Dressing General Eval Lower Body Dressing Contact Guard Assistance Ability Areas Needing Underpants/Brief,Socks Assistance Comments OT Dressing Comments Pt performs while EOB. OT ADL-Toileting General Evaluation Toileting Ability Contact Guard Assistance Areas Needing Manage Clothing Assistance OT ADL-Bathing Comments OT Bathing Comments not observed M5 OT- IP IADL's Start: 02/07/25 15:12 Freq: Status: Active Protocol: Document 02/07/25 15:12 MELANI (Rec: 02/07/25 15:29 [facility]) OT-Instrumental Activities of Daily Living Deficits IADL Deficits Deficits Identified Home Safety Awareness Awareness of Need Good Awareness for Assistance at Home Medication Management Medication spouse can assist prn Management Comments Money Management Money Management spouse can assist prn Comments Meal Preparation Meal Preparation spouse can assist prn Comments Prep Room Supervisor Prep Room Supervisor spouse can assist prn Comments Driving Driving Comments spouse can assist prn M6 OT- IP Functional Cognition Start: 02/07/25 15:12 Freq: Status: Active Protocol: Document 02/07/25 15:12 MELANI (Rec: 02/07/25 15:29 [facility] Cognitive Factors Limiting Selfcare Function Cognitive Ability Level of Alertness Alert Patient Orientation Name,Place,Situation Attention Span Capable of Focused Attention,Capable of Sustained Ability Attention Ability to Follow Able to Follow Multi-Step Commands Commands Memory Description No Deficits Noted OT- Vision and Hearing OT- Hearing Assessment OT- Hearing WFL Assessment OT- Vision Assessment Visual Acuity WFL,Glasses For Reading Visual Attentiveness WFL Occular Pursuits WFL Visual Convergence WFL Visual Wallace WFL Diplopia Absent M7 OT- IP Mobility and Balance Start: 02/07/25 15:12 Freq: Status: Active Protocol: Document 02/07/25 15:12 MELANI (Rec: 02/07/25 15:29 [facility]) OT- Bed Mobility Assessment Supine to Sit Supine to Sit Assist Standby Assistance Sit to Supine Sit to Supine Assist Standby Assistance Scooting Scooting to Edge of Standby Assistance Bed Scooting Up and Down Standby Assistance in Bed OT-Transfer Assessment Sit to and From Stand Sit to and from Contact Guard Assistance Stand Transfers Transfer Ability Contact Guard Assistance Technique Transfer Destination Bed,Toilet Transfer Technique Stand Step Pivot Devices Transfer Assistive Gait Belt,Front Wheeled Walker Devices Comments Mobility Comments Pt BP 161/74, HR 68, and O2 on RM 97%. Pt amb with FWW throughout room while performing BADLs. Pt would occasionally run into obstacles on L side, possible L neglect. OT- Gait Assessment Gait Gait Assistance Contact Guard Assist Required: Distance (Feet) 20 Assistive Devices Assistive Device Gait Belt,Front Wheeled Walker OT- Balance Assessment Sitting Balance and Reactions Static Sitting Normal Balance Ability Dynamic Sitting Good Balance Ability Standing Balance and Reactions Static Standing Fair Balance Ability Dynamic Standing Fair Balance Ability M8 OT- IP Objective Assessments Start: 02/07/25 15:12 Freq: Status: Active Protocol: Document 02/07/25 15:12 MELANI (Rec: 02/07/25 15:29 [facility]) OT Gross Range of Motion Upper Extremity Range of Motion Assessment Within Functional Limits OT Strength Upper Extremity Strength Assessment Left Impaired Shoulder 4- Elbow 3+ Hand 3+ Hand Corrections Counselor Strength Hand Dominance Right Comments Strength Comments R UE 4+ to 5 overall OT- Coordination Assessment Upper Extremity Finger to Nose Test Left UE Impaired Finger Tapping Test Left UE Impaired OT-Muscle Tone Assessment Muscle Tone WNL Yes OT Sensation Assessment Comments Summary Comments Pt intact to light and deep touch Edema Edema Absent M9 OT- IP Assessment and Plan Start: 02/07/25 15:12 Freq: Status: Active Protocol: Document 02/07/25 15:12 MELANI (Rec: 02/07/25 15:29 [facility]) OT Summary Assessment and Plan Potential Rehabilitation Excellent Potential Analytic Complexity Low at Evaluation Summary OT Impairments Strength,Balance,Coordination,Functional Mobility, Grooming,Dressing,Toileting,Bathing,Toilet Transfers, Shower Transfers Progress Towards Progressing Toward Goals Goals Assessment Summary Pt is 79-year-old female went to bed last night feeling normal and was found by her spouse on the floor at about 630 with a left-sided weakness and a facial droop . She was transported via EMS to the emergency department. CTA and CT head negative. Left-sided weakness, facial droop, and dysarthria. MRI ordered, showing punctate infarcts R basal ganglia. She presents with L UE weakness, L UE dysmetria, mild L neglect, decreased functional mobility, decreased FMC, decreased BADLs, and decreased balance. Skilled OT services are appropriate to address these deficits and promote return towards PLOF. Pt would benefit from acute rehab to maximize her return to PLOF following her CVA. Pt is also appropriate for dc home with assist and outpatient PT/OT, if unable to go to ARU. Goals Self-Feeding Goal Independent Grooming Goal Independent Dressing Goal Independent Toileting Goal Independent Bathing Goal Independent Toilet Transfer Goal Independent Shower Transfer Goal Independent Days to Meet Goals 10 Frequency of Treatment Other frequency 5x/wk Treatment Plan OT Treatment Plan ADL Training,Functional Mobility,Neuromuscular Re- education,Therapeutic Exercises,Patient/Family Education,Discharge Planning Discharge Recommendations OT Discharge Home with Assistance,Acute Rehab,Outpatient PT Recommendations Other Discharge ARU preferred, otherwise home with assist and Recommendations Outpatient OT/PT Transportation Needs Private Vehicle at Discharge
[2025-02-07] MEDS: ATORVASTATIN 20 MG TABLET 80 MG PO (20:17)
[2025-02-08 03:00] VITALS: BP 134/73; PULSE 68; RESP 17; TEMP 36.4; O2SAT 93
[2025-02-08 05:46] LABS: Add Manual Diff / Slide Review NO; Hematocrit 27.5 % (36-46); Hemoglobin 9.3 g/dL (12.0-16.0); Lymphocytes Absolute Auto 1300 /uL (1100-4500); Mean Corpuscular HGB Conc 34.0 % (30-36); Mean Corpuscular Hemoglobin 30.0 PG (26-34); Mean Corpuscular Volume 88.2 fL (80-100); Platelet Count 307 X10^3/uL (150-400)
[2025-02-08 05:57] LABS: Blood Urea Nitrogen 17 mg/dL (7-17); Calcium 8.3 mg/dL (8.4-10.2); Carbon Dioxide 25 mmol/L (22-32); Chloride 99 mmol/L (98-107); Estimated Glomerular Filt Rate > 60 mL/min (>60); Glucose 101 mg/dL (70-99); HEMOLYSIS < 15 (0-50); Potassium 4.3 mmol/L (3.4-5.1); Sodium 127 mmol/L (137-145)
[2025-02-08 06:29] LABS: Thyroid Stimulating Hormone 3.60 uIU/mL (0.47-4.68)
[2025-02-08 08:02] VITALS: BP 150/78; PULSE 65; RESP 15; TEMP 36; O2SAT 97
--- NOTE | 2025-02-08 08:35 | PM.DS.1 ---
History of Present Illness History of Present Illness Date Patient Seen: 02/08/25 Chief complaint: code stroke L sided deficits Discharge Providers Provider Date of admission: 02/07/25 09:17 Primary care physician: Darrel Baker DO Consults: 02/07/25 09:42 Consult to Discharge Planning Routine Comment: Consult to Occupational Therapy Evaluate & Treat Comment: Physician Instructions: Evaluate and treat Consult to Physical Therapy Evaluate & Treat Comment: Physician Instructions: Evaluate and Treat Consult to Speech Therapy Evaluate & Treat Comment: Physician Instructions: Evaluate and treat Discharge provider: William Lucas MD Summary Hospital Course Hospital Course: She was a 79-year-old female who has a history of hypertension and no previous history of stroke. She lives on [facility] with her . She went to bed last night, feeling normal. She would some trouble repositioning at about 4 in the morning. Her found her on the floor at about 630 with a left-sided weakness and a facial droop. She was transported via EMS to the emergency department. CTA and CT head negative. Left-sided weakness, facial droop, and dysarthria. MRI ordered, results pending. She was improving but still does have a left facial droop and very mild left-sided weakness. She denies headache. [facility] Medical History History of peptic ulcer disease Medicare annual wellness visit, subsequent Dizziness Constipation GERD (gastroesophageal reflux disease) Recurrent UTI Hyperlipidemia Pre-diabetes Acid reflux History of palpitations Former smoker Bruises easily History of headache Constipation Cataract (2012) Colon polyps (2013) Chicken pox (1949) Mumps (1952) Dupuytren's disease (~1989) Osteoporosis (12/18/15) Surgical History History of colonoscopy with polypectomy (2013) Anesthesia History of cataract removal with insertion of prosthetic lens (2012) Status post delivery (1987) Family History Father Diabetes mellitus Grandfather Heart disease Grandmother Stroke Mother Osteoporosis Grandmother Mental health problem Dementia Sister Bone cancer Brother No problems noted. Brother No problems noted. Grandfather Ruptured appendix Sister No problems noted. Social History household members: spouse Meds Home Medications and Allergies Home Medications ?Medication ?Instructions ?Recorded ?Confirmed ?Type ferrous gluconate 236 mg (27 mg 236 mg PO DAILY #90 tabs 09/18/24 09/18/24 Rx iron) tablet risedronate 35 mg tablet (Actonel) 35 mg PO QWEEK #12 tabs 09/18/24 09/18/24 Rx Allergies Allergy/AdvReac Type Severity Reaction Status Date / Time No Known Drug Allergies Allergy Verified 08/06/24 08:43 Review of Systems Review of Systems Narrative: All else reviewed and otherwise unremarkable except as noted in the history and physical. Exam Vital Signs (past 8 hours): - 02/08/2508:13 02/08/2508:21 02/08/2508:25 Temperature 98.2 F Pulse Rate 69 69 64 Respiratory Rate 18 16 13 Blood Pressure 169/74 H Pulse Oximetry 95 97 Oxygen Delivery Method Room Air 02/08/2508:25 02/08/2508:30 02/08/2508:31 Temperature Pulse Rate 71 78 Respiratory Rate 25 H Blood Pressure 183/84 H Pulse Oximetry 97 97 Oxygen Delivery Method 02/08/2508:31 02/07/2509:00 02/07/2509:00 Temperature Pulse Rate 64 Respiratory Rate Blood Pressure 161/87 H 164/77 H Pulse Oximetry 97 Oxygen Delivery Method 02/07/2509:30 02/07/2509:30 Temperature Pulse Rate 61 Respiratory Rate 18 Blood Pressure 168/75 H Pulse Oximetry 97 Oxygen Delivery Method Oxygen Delivery Method Room Air Narrative Exam Narrative: NAD, alert and oriented, fluent speech, calm. Normocephalic skull, EOMI, anicteric sclera, symmetric pupils. Oropharynx unremarkable, no droop. Neck supple, midline trachea, no adenopathy. Lungs clear, normal rate and effort. Heart regular, no murmur gallop or rub. Abdomen is soft, non distended and non tender. Extremities are free of edema. Skin is free of rash or lesions. Joints are not swollen or deformed. Judgment appears to be normal. Neuro: Normal speech, judgment. She does have mild slurring. Left facial droop. Very mild left arm and leg weakness. She can liver straight leg raise for over 5 seconds without difficulty. She can hold both arms up in the air. Normal visual chong, conjugate gaze. Objective ECG Impression: Intervals [place] Rate: 64 P: 51 AK: 144 QRS: -28 QRSD: 94 T: 52 QT: 402 QTc: 414 Interpretive Statements Normal sinus rhythm Septal infarct , age undetermined Imaging CT brain: CTA head and neck: Brain MRI:: Radiologist's impression: CT brain: No acute intracranial pathology. CTA head and neck: No significant intracranial arterial abnormality is seen. No significant abnormality is seen within the arteries of the neck. MR brain: Punctate infarcts involving the right basal ganglia and internal capsule. Labs 02/07/25 08:20 02/07/25 08:20 Labs: Laboratory Results - last 24 hr 02/07/25 02/07/25 02/07/25 08:11 08:20 09:10 WBC 4.5 RBC 3.00 L Hgb 9.0 L Hct 26.6 L MCV 88.7 MCH 30.1 MCHC 34.0 RDW 15.7 H Plt Count 298 Neut % (Auto) 63.6 Lymph % (Auto) 20.5 L [place] % (Auto) 13.8 Eos % (Auto) 1.5 L Baso % (Auto) 0.6 Neut # (Auto) 2900 Lymph # (Auto) 900 L [place] # (Auto) 600 Eos # (Auto) 100 Baso # (Auto) 0 PT 11.0 INR 1.0 APTT 26 Sodium 128 L Potassium 4.0 Chloride 98 Carbon Dioxide 25 BUN 12 Creatinine 0.60 Estimated GFR > 60 BUN/Creatinine Ratio 20.0 Glucose 89 POC Whole Bld Glucose 93 Hemoglobin A1c 5.4 Calcium 8.1 L Total Bilirubin 0.2 AST 27 ALT 13 Alkaline Phosphatase 61 Total Creatine Kinase 43 Troponin I < 0.012 Total Protein 6.5 Albumin 3.2 L Globulin 3.3 Albumin/Globulin Ratio 1.0 Triglycerides 82 Cholesterol 173 LDL Cholesterol, Calc 92 HDL Cholesterol 65 H Urine Color Yellow Urine Appearance Clear Urine pH 6.0 Ur Specific [place] 1.010 Urine Protein Negative Urine Glucose (UA) Negative Urine Ketones Negative Urine Occult Blood Negative Urine Nitrate Negative Urine Bilirubin Negative Urine Urobilinogen 0.2 Ur Leukocyte Esterase Negative Urine RBC None seen Urine WBC None seen Ur Squamous Epith Cells 1-5 /hpf Urine Bacteria None seen Ur Culture Indicated? Cult not indicated Vol Urine Centrifuged 10ml (spun) U Opiates 300ng/mL cut Negative Ur Oxycodone Screen Negative Urine Methadone Screen Negative Ur Barbiturates Screen Negative U Tricyclic Antidepress Negative Ur Phencyclidine Scrn Negative Ur Amphetamines Screen Negative U Methamphetamines Scrn Negative Ur MDMA Scrn (Ecstasy) Negative U Benzodiazepines Scrn Negative Urine Cocaine Screen Negative U Marijuana (THC) Screen Negative Urine Specific [place] Ur Creatinine 02/07/25 09:10 WBC RBC Hgb Hct MCV MCH MCHC RDW Plt Count Neut % (Auto) Lymph % (Auto) [place] % (Auto) Eos % (Auto) Baso % (Auto) Neut # (Auto) Lymph # (Auto) [place] # (Auto) Eos # (Auto) Baso # (Auto) PT INR APTT Sodium Potassium Chloride Carbon Dioxide BUN Creatinine Estimated GFR BUN/Creatinine Ratio Glucose POC Whole Bld Glucose Hemoglobin A1c Calcium Total Bilirubin AST ALT Alkaline Phosphatase Total Creatine Kinase Troponin I Total Protein Albumin Globulin Albumin/Globulin Ratio Triglycerides Cholesterol LDL Cholesterol, Calc HDL Cholesterol Urine Color Urine Appearance Urine pH Normal Ur Specific [place] Urine Protein Urine Glucose (UA) Urine Ketones Urine Occult Blood Urine Nitrate Urine Bilirubin Urine Urobilinogen Ur Leukocyte Esterase Urine RBC Urine WBC Ur Squamous Epith Cells Urine Bacteria Ur Culture Indicated? Vol Urine Centrifuged U Opiates 300ng/mL cut Ur Oxycodone Screen Urine Methadone Screen Ur Barbiturates Screen U Tricyclic Antidepress Ur Phencyclidine Scrn Ur Amphetamines Screen U Methamphetamines Scrn Ur MDMA Scrn (Ecstasy) U Benzodiazepines Scrn Urine Cocaine Screen U Marijuana (THC) Screen Urine Specific [place] Normal Ur Creatinine Normal Assessment & Plan Assessment & Plan narrative: 1. Right basal ganglia ischemic stroke, present on admission and active. 2. Uncontrolled hypertension, currently allowing permissive hypertension. Plan: -discussed with stroke team. -continue dual antiplatelet therapy, 21 days. High dose statin. -echo -PT and OT assessments. Full resuscitation Anticipate 2 midnights in the hospital, supports inpatient status is proxy decision maker Exam Vital Signs (past 8 hours): - 02/08/25 03:00 02/08/25 08:02 Temperature 97.6 F 96.8 F L Pulse Rate 68 65 Respiratory Rate 17 15 Blood Pressure 134/73 150/78 H Pulse Oximetry 93 97 Oxygen Flow Rate 0 Oxygen Delivery Method Room Air Oxygen Flow Rate 0 Objective Labs 02/08/25 05:23 02/08/25 05:23 Labs: Laboratory Results - last 24 hr 02/07/25 02/07/25 02/07/25 08:20 09:10 09:10 WBC 4.5 RBC 3.00 L Hgb 9.0 L Hct 26.6 L MCV 88.7 MCH 30.1 MCHC 34.0 RDW 15.7 H Plt Count 298 Neut % (Auto) 63.6 Lymph % (Auto) 20.5 L [place] % (Auto) 13.8 Eos % (Auto) 1.5 L Baso % (Auto) 0.6 Neut # (Auto) 2900 Lymph # (Auto) 900 L [place] # (Auto) 600 Eos # (Auto) 100 Baso # (Auto) 0 PT 11.0 INR 1.0 APTT 26 Sodium 128 L Potassium 4.0 Chloride 98 Carbon Dioxide 25 BUN 12 Creatinine 0.60 Estimated GFR > 60 BUN/Creatinine Ratio 20.0 Glucose 89 Hemoglobin A1c 5.4 Calcium 8.1 L Total Bilirubin 0.2 AST 27 ALT 13 Alkaline Phosphatase 61 Total Creatine Kinase 43 Troponin I < 0.012 Total Protein 6.5 Albumin 3.2 L Globulin 3.3 Albumin/Globulin Ratio 1.0 Triglycerides 82 Cholesterol 173 LDL Cholesterol, Calc 92 HDL Cholesterol 65 H TSH Urine Color Yellow Urine Appearance Clear Urine pH 6.0 Normal Ur Specific [place] 1.010 Urine Protein Negative Urine Glucose (UA) Negative Urine Ketones Negative Urine Occult Blood Negative Urine Nitrate Negative Urine Bilirubin Negative Urine Urobilinogen 0.2 Ur Leukocyte Esterase Negative Urine RBC None seen Urine WBC None seen Ur Squamous Epith Cells 1-5 /hpf Urine Bacteria None seen Ur Culture Indicated? Cult not indicated Vol Urine Centrifuged 10ml (spun) U Opiates 300ng/mL cut Negative Ur Oxycodone Screen Negative Urine Methadone Screen Negative Ur Barbiturates Screen Negative U Tricyclic Antidepress Negative Ur Phencyclidine Scrn Negative Ur Amphetamines Screen Negative U Methamphetamines Scrn Negative Ur MDMA Scrn (Ecstasy) Negative U Benzodiazepines Scrn Negative Urine Cocaine Screen Negative U Marijuana (THC) Screen Negative Urine Specific [place] Normal Ur Creatinine Normal 02/08/25 05:23 WBC 5.8 RBC 3.11 L Hgb 9.3 L Hct 27.5 L MCV 88.2 MCH 30.0 MCHC 34.0 RDW 15.5 H Plt Count 307 Neut % (Auto) 63.8 Lymph % (Auto) 23.1 L [place] % (Auto) 10.7 Eos % (Auto) 1.7 L Baso % (Auto) 0.7 Neut # (Auto) 3700 Lymph # (Auto) 1300 [place] # (Auto) 600 Eos # (Auto) 100 Baso # (Auto) 0 PT INR APTT Sodium 127 L Potassium 4.3 Chloride 99 Carbon Dioxide 25 BUN 17 Creatinine 0.60 Estimated GFR > 60 BUN/Creatinine Ratio 28.3 H Glucose 101 H Hemoglobin A1c Calcium 8.3 L Total Bilirubin AST ALT Alkaline Phosphatase Total Creatine Kinase Troponin I Total Protein Albumin Globulin Albumin/Globulin Ratio Triglycerides Cholesterol LDL Cholesterol, Calc HDL Cholesterol TSH 3.60 Urine Color Urine Appearance Urine pH Ur Specific [place] Urine Protein Urine Glucose (UA) Urine Ketones Urine Occult Blood Urine Nitrate Urine Bilirubin Urine Urobilinogen Ur Leukocyte Esterase Urine RBC Urine WBC Ur Squamous Epith Cells Urine Bacteria Ur Culture Indicated? Vol Urine Centrifuged U Opiates 300ng/mL cut Ur Oxycodone Screen Urine Methadone Screen Ur Barbiturates Screen U Tricyclic Antidepress Ur Phencyclidine Scrn Ur Amphetamines Screen U Methamphetamines Scrn Ur MDMA Scrn (Ecstasy) U Benzodiazepines Scrn Urine Cocaine Screen U Marijuana (THC) Screen Urine Specific [place] Ur Creatinine [facility] Medical History History of peptic ulcer disease Medicare annual wellness visit, subsequent Dizziness Constipation GERD (gastroesophageal reflux disease) Recurrent UTI Hyperlipidemia Pre-diabetes Acid reflux History of palpitations Former smoker Bruises easily History of headache Constipation Cataract (2012) Colon polyps (2013) Chicken pox (1949) Mumps (1952) Dupuytren's disease (~1989) Osteoporosis (12/18/15) Surgical History History of colonoscopy with polypectomy (2013) Anesthesia History of cataract removal with insertion of prosthetic lens (2012) Status post delivery (1987) Family History Father Diabetes mellitus Grandfather Heart disease Grandmother Stroke Mother Osteoporosis Grandmother Mental health problem Dementia Sister Bone cancer Brother No problems noted. Brother No problems noted. Grandfather Ruptured appendix Sister No problems noted. Social History household members: spouse Smoking Status: Former smoker alcohol intake: current Discharge Plan Discharge orders & Medications Prescriptions: No Action risedronate [Actonel] 35 mg tablet 35 mg PO QWEEK Qty: 12 3RF Rx Instructions: administer at least 30 minutes before the first food or drink of the day other than water. Follow up/Referrals: Darrel Baker DO [Primary Care Provider, [facility]] Discharge Data Primary Care Provider: Darrel Baker Quality VTE Deep Vein Thrombosis/Pulmonary Embolism Present on Admission: Yes
[2025-02-08] MEDS: CLOPIDOGREL 75 MG TABLET PO (09:17)
[2025-02-08] MEDS: ASPIRIN EC 81 MG TABLET PO (09:17)
[2025-02-08] MEDS: INFLUENZA HD VACCINE 0.5 ML SYRINGE IM (09:17)
--- NOTE | 2025-02-08 09:37 | CM.DPC ---
Acute Rehab referrals sent to [email or web address] and [email or web address]
[2025-02-08 12:00] VITALS: BP 170/70; PULSE 78; RESP 16; TEMP 35.8; O2SAT 96
--- NOTE | 2025-02-08 13:05 | PT.IPTN ---
Current Diagnoses Cerebral infarction, unspecified (02/07/25) Physical Therapy Treatment Note M2 PT-IP Current Condition Start: 02/07/25 14:52 Freq: NEEDED Status: Active Protocol: Document 02/07/25 14:10 AB (Rec: 02/07/25 15:08 AB [id number]) Physical Therapy Current Condition Current Condition Evaluation Date 02/07/25 Treatment Diagnosis R CVA; difficulty in walking Onset Date 02/07/25 M3 PT-IP Subjective Start: 02/07/25 14:52 Freq: NEEDED Status: Active Protocol: Document 02/08/25 13:05 AB (Rec: 02/08/25 14:32 AB Desktop) Subjective Physical Therapy Visit Type Type Treatment Note Visit Start Time 13:05 Visit Stop Time 13:35 Number of STOCK WORKER AND DELIVERER Visits 0 Physical Therapy Visit Comments Patient Comments agreeable to do PT M4 PT-IP Mobility and Gait Start: 02/07/25 14:52 Freq: NEEDED Status: Active Protocol: Document 02/08/25 13:05 AB (Rec: 02/08/25 14:32 AB Desktop) PT-Transfer Assessment Sit to and From Stand Sit to and from Contact Guard Assistance,1 Person Assistance,Use of Stand Upper Extremities Equipment Transfer Assistive Gait Belt,Front Wheeled Walker Device Orthotic/Prosthetic No Devices or Brace: Transfers Transfer Destination Bed,Chair Transfer Technique ambulated Transfer Ability Level of Assist Contact Guard Assistance,1 Person Assistance,Use of Upper Extremities Comments Mobility Comments pt sitting on the chair and spouse in room. pt completed sit to stand CGA and cues. ambulated without AD min A and cues ~ 15 ft and sat on EOB. continues to have unsteady very guarded gait without AD. pt ambulated bed to chair. using FWW ~ 15 ft CGA to min A and cues. presents with unsteady gait needing min A for turning and stepping backwards. RLE tends to cross midline and with narrow OSVALDO needing cues to correct. presents with LLE dragging gait towards ends of ambulation. continues to require cues to increase L sided awareness. caregiver training conducted. educated spouse on how to use safety belt and how to assist pt. spouse was able to put safety belt on pt. assisted pt with ambulation in room and completed ~ 5 ft. Pt provided pt cues for increase OSVALDO and lifting LLE up midway with ambulation. pt sat back on chair. positioned pt on the chair. call light and table placed within reach. informed pt and spouse regarding d/c plan: acute rehab vs home / and outpt PT. informed pt, spouse, hospitalist and case work aide regarding acute rehab recommendation but it pt goes home, will need 07/11 assist and outpt PT. Gait Assessment Gait Gait Assistance Contact Guard Assist,Minimum Assistance Required: Distance (Feet) 75 Able to Maintain No Weight Bearing Status During Gait Assistive Devices Assistive Device Gait Belt,Front Wheeled Walker Orthotic/Prosthetic No Devices or Brace: Gait Deviations General Gait Pattern Antalgic,Ataxic,Decreased Stride Length,Decreased Feet Clearance Factors Limiting Gait Function Factors Limiting Decreased Activity Tolerance,Decreased Strength, Gait Function Incoordination,Poor Balance,Poor Safety Awareness M5 PT-IP Objective Assessments Start: 02/07/25 14:52 Freq: NEEDED Status: Active Protocol: Document 02/07/25 14:10 AB (Rec: 02/07/25 15:08 AB [id number]) Orientation Orientation/Cognition Level of Alertness Alert Orientation Name,Place,Situation Safety Awareness Decreased Safety Awareness Gross Range of Motion Lower Extremity ROM Assessment Within Functional Limits Strength Lower Extremity Strength Assessment Within Functional Limits Coordination Assessment Gross Coordination Gross Coordination Impaired Assessment Finger to Nose Test Minimal Impairment Pronation/Supination Minimal Impairment Test Muscle Tone Muscle Tone WNL Yes M6 PT-IP Treatment Start: 02/07/25 14:52 Freq: NEEDED Status: Active Protocol: Document 02/08/25 13:05 AB (Rec: 02/08/25 14:32 AB Desktop) Physical Therapy Treatment Education Education Provided Safety M7 PT-IP Assessment and Plan Start: 02/07/25 14:52 Freq: NEEDED Status: Active Protocol: Document 02/08/25 13:05 AB (Rec: 02/08/25 14:32 AB Desktop) PT Summary Assessment and Plan Potential Rehabilitation Good Potential Summary Impairments Pain,ROM,Strength,Balance,Coordination,Sensation,Tone, Cognition,Bed Mobility,Transfers,Gait,Activity Tolerance Progress Towards Slow Progress due to Medical Issues,Slow Progress due Goals to Activity Tolerance Assessment Summary pt requiring CGA to min A with ambulation using FWW ~ 75 ft with max cues. pt presents with unsteady gait with dragging gait on LLE midway with ambulation accounting for LLE weakness/ fatigue. pt continues to require cues for safety and increase L sided awareness. caregiver training conducted and spouse was able to assist pt. pt will benefit from acute rehab to improve overall mobility independence. Goals Bed Mobility Goal Independent Transfer Goal Independent,Front Wheeled Walker Gait Goal Independent,Front Wheel Walker Gait Distance 200 Other Goals up/down 1 step using FWW mod I Days to Meet Goals 10 Frequency of Treatment Frequency Of Once a Day Treatment Treatment Plan Physical Therapy Bed Mobility Training,Transfer Training,Gait Training, Treatment Plan Therapeutic Exercise,Balance Retraining,Discharge Planning,Hot or Cold Pack,Neuromuscular Re-ed, Coordination Retraining,Manual Therapy Precautions Other Precautions falls Recommendations To Nursing Amount of Assist 1 Person Assist Needed Discharge Recommendations PT Discharge Acute Rehab Recommendations Transportation Needs Private Vehicle at Discharge - PT assist 1
--- NOTE | 2025-02-08 13:05 | CM.DANOTE ---
Addendum entered by Matilde Damon RN 02/08/25 15:00: Progress note and new PT eval sent to Acute Rehab, [facility]. Original Note: Initial DCP Assessment Note. Review EMR and PT Interview. Met with patient at bedside to discuss discharge needs.PT is alert x 4 sitting up in chair. No acute distress. Patient lives independently with spouse. Rarely used walker prior to admission. Payor:??[facility] PCP: ? Summary & Plan:?Arrived to ED via EMS c/o weakness. Admitted INPT. Dx. CVA. Plan: MRI and PT eval. PT eval recommended Acute Rehad or home with 07/11 assist. Discharge Planning/Care Management CM Discharge Assessment Start: 02/07/25 09:27 Freq: Status: Active Protocol: Document 02/08/25 12:52 SM (Rec: 02/08/25 13:04 [id number]) Discharge Planning Assessment Assigned Discharge Matilde Damon RN CM Convex Grinder Operator Provider [facility] Advance Directives? Yes Advance Directives Yes on File History Provided By Patient Has Patient been No admitted in last 30 days? Prior Living House Arrangements Household Members spouse Type of Drives own vehicle transporation used prior to admit Independent with ADL Yes 's Is patient alert and Yes oriented? Caregiver for No Another DME Already Rented / FWW / Walker Owned Comment Rarely used walker Comment Acute Rehab Barriers to No Discharge Discharge Plan Inpatient Rehab Unit Referrals Initiated Other Additional Comment Acute rehab Review Status In Process Please Provide Date 02/08/25 Initial DC Assessment Was Performed Next Review Type Continued Stay Review
--- NOTE | 2025-02-08 13:46 | P.PN_ITS ---
Subjective Subjective Date Patient Seen: 02/08/25 Interval history: She was a 79-year-old female who has a history of hypertension and no previous history of stroke. She lives on [facility] with her . She went to bed last night, feeling normal. She would some trouble repositioning at about 4 in the morning. Her found her on the floor at about 630 with a left-sided weakness and a facial droop. She was transported via EMS to the emergency department. CTA and CT head negative. Left-sided weakness, facial droop, and dysarthria. MRI ordered, results pending. She was improving but still does have a left facial droop and very mild left-sided weakness. She denies headache. 02/08/2025: The patient has good bilateral extremity strength (4/5 on the left) but given the location of the stroke it is not surprising that she has significant ataxia and left-sided neglect/foot drop/dragging. PT worked with her again today noting that the foot dragging and the ataxia worsened quite quickly with just a few steps in her room. She is requiring 1 person assist for all standing/ambulating. She really needs inpatient rehab to optimize recovery and would not receive adequate rehab therapies for these conditions in a safe manner at home. Her can not be expected to be with her at all times 07/11 and home health therapy is just not often enough to gain and sustain improvements in her ataxia. Narrative Exam Narrative: NAD, alert and oriented, fluent speech, calm. Neck supple, midline trachea Lungs clear, normal rate and effort. Heart regular, no murmur gallop or rub. Extremities are free of edema. Skin is free of rash or lesions. Joints are not swollen or deformed. Judgment appears to be normal. Neuro: Normal speech, judgment. She does have mild slurring and moderate left facial droop. 4/5 left arm and leg weakness. She has left sided neglect and bumps into things on the left side when walking. She has significant nonfatiguing ataxia and is unable to balance/walk without a walker. She needs constant 1 person assist when standing and walking to avoid falling down. She is dragging the left leg, which worsens quickly with just a few steps in her room. The gait ataxia also becomes severe as she walks. Normal visual chong, conjugate gaze. Assessment & Plan Assessment & Plan narrative: 1. Right basal ganglia/Internal Capsule ischemic stroke, present on admission and active. 2. Uncontrolled hypertension, currently allowing permissive hypertension. 3. Gait Ataxia/Left Sided Neglect/Left Foot Dragging 4. Anemia 5. Hyponatremia Plan: -Previously discussed with stroke team. -continue dual antiplatelet therapy, 21 days, then daily Aspirin. High dose statin. -echo showed 60-65% EF and Moderate TR without evidence of shunt. -PT and OT assessments repeatedly emphasize need for inpatient rehab before safe discharge home. -Hgb 9.3, assess with B12 and Folate -Na 127, follow -Add BP meds on 02/09 if still needed. Full resuscitation is proxy decision maker Exam Vital Signs (past 8 hours): - 02/08/25 08:02 02/08/25 12:00 Temperature 96.8 F L 96.5 F L Pulse Rate 65 78 Respiratory Rate 15 16 Blood Pressure 150/78 H 170/70 H Pulse Oximetry 97 96 Oxygen Flow Rate 0 0 Oxygen Delivery Method Room Air Oxygen Flow Rate 0 Objective Labs 02/08/25 05:23 02/08/25 05:23 Labs: Laboratory Results - last 24 hr 02/08/25 05:23 WBC 5.8 RBC 3.11 L Hgb 9.3 L Hct 27.5 L MCV 88.2 MCH 30.0 MCHC 34.0 RDW 15.5 H Plt Count 307 Neut % (Auto) 63.8 Lymph % (Auto) 23.1 L [place] % (Auto) 10.7 Eos % (Auto) 1.7 L Baso % (Auto) 0.7 Neut # (Auto) 3700 Lymph # (Auto) 1300 [place] # (Auto) 600 Eos # (Auto) 100 Baso # (Auto) 0 Sodium 127 L Potassium 4.3 Chloride 99 Carbon Dioxide 25 BUN 17 Creatinine 0.60 Estimated GFR > 60 BUN/Creatinine Ratio 28.3 H Glucose 101 H Calcium 8.3 L TSH 3.60 PFSH Medical History History of peptic ulcer disease Medicare annual wellness visit, subsequent Dizziness Constipation GERD (gastroesophageal reflux disease) Recurrent UTI Hyperlipidemia Pre-diabetes Acid reflux History of palpitations Former smoker Bruises easily History of headache Constipation Cataract (2012) Colon polyps (2013) Chicken pox (1949) Mumps (1952) Dupuytren's disease (~1989) Osteoporosis (12/18/15) Surgical History History of colonoscopy with polypectomy (2013) Anesthesia History of cataract removal with insertion of prosthetic lens (2012) Status post delivery (1987) Family History Father Diabetes mellitus Grandfather Heart disease Grandmother Stroke Mother Osteoporosis Grandmother Mental health problem Dementia Sister Bone cancer Brother No problems noted. Brother No problems noted. Grandfather Ruptured appendix Sister No problems noted. Social History household members: spouse Smoking Status: Former smoker alcohol intake: current Assessment & Plan Time-Based Coding :: [TOTAL MINUTES] spent with patient and on the chart (including review of chart, obtaining history, exam, reviewing outside data, placing orders, documenting exam and treatment plan, and counseling patient) on [DATE]. Quality VTE Deep Vein Thrombosis/Pulmonary Embolism Present on Admission: Yes
[2025-02-08 16:00] VITALS: BP 133/76; PULSE 83; RESP 16; TEMP 35.8; O2SAT 95
[2025-02-08 20:00] VITALS: BP 136/73; PULSE 77; RESP 17; TEMP 36.1; O2SAT 98
[2025-02-08] MEDS: SENNOSIDES 8.6 MG TABLET PO (20:27)
[2025-02-08] MEDS: ATORVASTATIN 20 MG TABLET 80 MG PO (20:27)
[2025-02-09] VITALS: BP 137/72; PULSE 75; RESP 18; TEMP 36.3; O2SAT 98
[2025-02-09 04:00] VITALS: BP 113/61; PULSE 51; RESP 17; TEMP 36.4; O2SAT 97
[2025-02-09 06:34] LABS: Add Manual Diff / Slide Review NO; Hematocrit 25.0 % (36-46); Hemoglobin 8.6 g/dL (12.0-16.0); Lymphocytes Absolute Auto 1500 /uL (1100-4500); Mean Corpuscular HGB Conc 34.6 % (30-36); Mean Corpuscular Hemoglobin 30.5 PG (26-34); Mean Corpuscular Volume 88.1 fL (80-100); Platelet Count 306 X10^3/uL (150-400)
[2025-02-09 06:37] LABS: Blood Urea Nitrogen 17 mg/dL (7-17); Calcium 8.2 mg/dL (8.4-10.2); Carbon Dioxide 26 mmol/L (22-32); Chloride 95 mmol/L (98-107); Estimated Glomerular Filt Rate > 60 mL/min (>60); Glucose 101 mg/dL (70-99); HEMOLYSIS < 15 (0-50); Potassium 4.0 mmol/L (3.4-5.1); Sodium 123 mmol/L (137-145)
--- NOTE | 2025-02-09 07:59 | PM.PN.1 ---
Subjective Subjective Date Patient Seen: 02/09/25 Interval history: This is a 79-year-old female who has a history of hypertension and no previous history of stroke. She lives on [facility] with her . She went to bed last night, feeling normal. She would some trouble repositioning at about 4 in the morning. Her found her on the floor at about 630 with a left-sided weakness and a facial droop. She was transported via EMS to the emergency department. CTA and CT head negative. Left-sided weakness, facial droop, and dysarthria. MRI ordered, results pending. She was improving but still does have a left facial droop and very mild left-sided weakness. She denies headache. 02/08/2025: The patient has good bilateral extremity strength (4/5 on the left) but given the location of the stroke it is not surprising that she has significant ataxia and left-sided neglect/foot drop/dragging. PT worked with her again today noting that the foot dragging and the ataxia worsened quite quickly with just a few steps in her room. She is requiring 1 person assist for all standing/ambulating. She really needs inpatient rehab to optimize recovery and would not receive adequate rehab therapies for these conditions in a safe manner at home. Her can not be expected to be with her at all times 07/11 and home health therapy is just not often enough to gain and sustain improvements in her ataxia. 02/09/2025: The hemoglobin has dropped from 9.3 down to 8.6 today. The sodium has dropped from 127 down to 123. She says she has a history of low-sodium. She iss not on an SSRI or diuretic. We will start her on salt tablets today. We will also be checking B12, folate and iron levels regarding the anemia. Her heart rate is slow but steady at 51. She says she has a history of stomach ulcer and previously took omeprazole but never had anemia. She had epigastric pain recurrent as recently as yesterday. Her muscle strength testing today is more variable and less consistent than yesterday. PT and OT are assessing her ataxia and left hemineglect again. I discussed the anemia in the context of the history of ulcer and the need to be on aspirin with General surgery. Since there is no other evidence of ongoing GI bleed we will collect a Hemoccult stool and defer EGD at this time. Narrative Exam Narrative: NAD, alert and oriented, fluent speech, calm. Neck supple, midline trachea Lungs clear, normal rate and effort. Heart regular, no murmur gallop or rub. Extremities are free of edema. Skin is free of rash or lesions. Joints are not swollen or deformed. Judgment appears to be normal. Neuro: Normal speech, judgment. She does have mild slurring and moderate left facial droop. 4/5 left arm and leg weakness. She has left sided neglect and bumps into things on the left side when walking. She has significant nonfatiguing ataxia and is unable to balance/walk without a walker. She needs constant 1 person assist when standing and walking to avoid falling down. She is dragging the left leg, which worsens quickly with just a few steps in her room. The gait ataxia also becomes severe as she walks. Normal visual chong, conjugate gaze. Assessment & Plan 1. Right basal ganglia/Internal Capsule ischemic stroke, present on admission and active. 2. Uncontrolled hypertension, begin treatment after completing. Of permissive hypertension 3. Gait Ataxia/Left Sided Neglect/Left Foot Dragging 4. Anemia 5. Hyponatremia Plan: -Previously discussed with stroke team. -continue dual antiplatelet therapy, 21 days, then daily Aspirin. High dose statin. -echo showed 60-65% EF and Moderate TR without evidence of shunt. -PT and OT assessments continue to emphasize need for inpatient rehab before safe discharge home. -Hgb 9.3, assess with B12 and Folate and iron levels -Na 123, begin salt tabs daily and monitor. -add losartan Full resuscitation is proxy decision maker Exam Vital Signs (past 8 hours): - 02/09/25 00:00 02/09/25 04:00 Temperature 97.4 F L 97.5 F L Pulse Rate 75 51 L Respiratory Rate 18 17 Blood Pressure 137/72 113/61 Pulse Oximetry 98 97 Oxygen Flow Rate 0 0 Oxygen Delivery Method Room Air Oxygen Flow Rate 0 Objective Labs 02/09/25 05:37 02/09/25 05:37 Labs: Laboratory Results - last 24 hr 02/09/25 05:37 WBC 6.0 RBC 2.83 L Hgb 8.6 L Hct 25.0 L MCV 88.1 MCH 30.5 MCHC 34.6 RDW 15.3 H Plt Count 306 Neut % (Auto) 63.3 Lymph % (Auto) 24.4 L [place] % (Auto) 10.1 Eos % (Auto) 1.6 L Baso % (Auto) 0.6 Neut # (Auto) 3800 Lymph # (Auto) 1500 [place] # (Auto) 600 Eos # (Auto) 100 Baso # (Auto) 0 Sodium 123 L Potassium 4.0 Chloride 95 L Carbon Dioxide 26 BUN 17 Creatinine 0.57 Estimated GFR > 60 BUN/Creatinine Ratio 29.8 H Glucose 101 H Calcium 8.2 L PFSH Medical History History of peptic ulcer disease Medicare annual wellness visit, subsequent Dizziness Constipation GERD (gastroesophageal reflux disease) Recurrent UTI Hyperlipidemia Pre-diabetes Acid reflux History of palpitations Former smoker Bruises easily History of headache Constipation Cataract (2012) Colon polyps (2013) Chicken pox (1949) Mumps (1952) Dupuytren's disease (~1989) Osteoporosis (12/18/15) Surgical History History of colonoscopy with polypectomy (2013) Anesthesia History of cataract removal with insertion of prosthetic lens (2012) Status post delivery (1987) Family History Father Diabetes mellitus Grandfather Heart disease Grandmother Stroke Mother Osteoporosis Grandmother Mental health problem Dementia Sister Bone cancer Brother No problems noted. Brother No problems noted. Grandfather Ruptured appendix Sister No problems noted. Social History household members: spouse Smoking Status: Former smoker alcohol intake: current Assessment & Plan Time-Based Coding :: [TOTAL MINUTES] spent with patient and on the chart (including review of chart, obtaining history, exam, reviewing outside data, placing orders, documenting exam and treatment plan, and counseling patient) on [DATE]. Quality VTE Deep Vein Thrombosis/Pulmonary Embolism Present on Admission: Yes
[2025-02-09] MEDS: SODIUM CHLORIDE 1,000 MG TABLET 1000 MG PO (08:17)
[2025-02-09] MEDS: ASPIRIN EC 81 MG TABLET PO (08:17)
[2025-02-09] MEDS: CLOPIDOGREL 75 MG TABLET PO (08:17)
[2025-02-09] MEDS: SENNOSIDES 8.6 MG TABLET PO ×2 (08:17→19:37)
[2025-02-09 08:37] VITALS: BP 112/75; PULSE 105; RESP 20; TEMP 36.4; O2SAT 92
[2025-02-09 08:49] LABS: HEMOLYSIS < 15 (0-50); Iron 40 ug/dL (37-170)
[2025-02-09 09:01] LABS: Percent Iron Saturation 13 % (15-50); Total Iron Binding Capacity 313 ug/dL (265-497); Transferrin 251 mg/dL (206-381)
[2025-02-09 09:44] LABS: Vitamin B12 289 pg/mL (239-931)
[2025-02-09 10:01] LABS: Folate 12.2 ng/mL (2.76-20.0)
[2025-02-09] MEDS: PANTOPRAZOLE DR 40 MG TABLET PO (11:20)
[2025-02-09 12:10] VITALS: BP 151/78; PULSE 81; RESP 16; TEMP 35.9; O2SAT 97
--- NOTE | 2025-02-09 14:40 | PT-IP ANOTE ---
Attempted to see pt x 2 today. 1st attempt pt refused due to visitors; 2nd pt sound asleep.
[2025-02-09 16:24] VITALS: BP 132/65; PULSE 95; RESP 20; TEMP 35.8; O2SAT 97
[2025-02-09] MEDS: LOSARTAN 50 MG TABLET PO (17:10)
[2025-02-09] MEDS: ENOXAPARIN 40 MG/0.4 ML SYRINGE SUBCUT (17:10)
[2025-02-09] MEDS: ATORVASTATIN 20 MG TABLET 80 MG PO (19:38)
[2025-02-09 20:00] VITALS: BP 135/61; PULSE 80; RESP 18; TEMP 35.8; O2SAT 97
[2025-02-10] VITALS: BP 127/61; PULSE 76; RESP 18; TEMP 36.6; O2SAT 98
[2025-02-10 04:00] VITALS: BP 123/62; PULSE 71; RESP 18; TEMP 36.7; O2SAT 98
[2025-02-10 05:19] LABS: Add Manual Diff / Slide Review NO; Hematocrit 24.8 % (36-46); Hemoglobin 8.5 g/dL (12.0-16.0); Lymphocytes Absolute Auto 1700 /uL (1100-4500); Mean Corpuscular HGB Conc 34.3 % (30-36); Mean Corpuscular Hemoglobin 30.3 PG (26-34); Mean Corpuscular Volume 88.1 fL (80-100); Platelet Count 307 X10^3/uL (150-400)
[2025-02-10 05:24] LABS: Blood Urea Nitrogen 13 mg/dL (7-17); Calcium 8.4 mg/dL (8.4-10.2); Carbon Dioxide 23 mmol/L (22-32); Chloride 95 mmol/L (98-107); Estimated Glomerular Filt Rate > 60 mL/min (>60); Glucose 104 mg/dL (70-99); HEMOLYSIS < 15 (0-50); Potassium 4.3 mmol/L (3.4-5.1); Sodium 123 mmol/L (137-145)
--- NOTE | 2025-02-10 07:44 | PM.PN.1 ---
Subjective Subjective Date Patient Seen: 02/10/25 Interval history: This is a 79-year-old female who has a history of hypertension and no previous history of stroke. She lives on [facility] with her . She went to bed last night, feeling normal. She would some trouble repositioning at about 4 in the morning. Her found her on the floor at about 630 with a left-sided weakness and a facial droop. She was transported via EMS to the emergency department. CTA and CT head negative. Left-sided weakness, facial droop, and dysarthria. MRI ordered, results pending. She was improving but still does have a left facial droop and very mild left-sided weakness. She denies headache. 02/08/2025: The patient has good bilateral extremity strength (4/5 on the left) but given the location of the stroke it is not surprising that she has significant ataxia and left-sided neglect/foot drop/dragging. PT worked with her again today noting that the foot dragging and the ataxia worsened quite quickly with just a few steps in her room. She is requiring 1 person assist for all standing/ambulating. She really needs inpatient rehab to optimize recovery and would not receive adequate rehab therapies for these conditions in a safe manner at home. Her can not be expected to be with her at all times 07/11 and home health therapy is just not often enough to gain and sustain improvements in her ataxia. 02/09/2025: The hemoglobin has dropped from 9.3 down to 8.6 today. The sodium has dropped from 127 down to 123. She says she has a history of low-sodium. She iss not on an SSRI or diuretic. We will start her on salt tablets today. We will also be checking B12, folate and iron levels regarding the anemia. Her heart rate is slow but steady at 51. She says she has a history of stomach ulcer and previously took omeprazole but never had anemia. She had epigastric pain recurrent as recently as yesterday. Her muscle strength testing today is more variable and less consistent than yesterday. PT and OT are assessing her ataxia and left hemineglect again. I discussed the anemia in the context of the history of ulcer and the need to be on aspirin with General surgery. Since there is no other evidence of ongoing GI bleed we will collect a Hemoccult stool and defer EGD at this time. Narrative Exam Narrative: NAD, alert and oriented, fluent speech, calm. Neck supple, midline trachea Lungs clear, normal rate and effort. Heart regular, no murmur gallop or rub. Extremities are free of edema. Skin is free of rash or lesions. Joints are not swollen or deformed. Judgment appears to be normal. Neuro: Normal speech, judgment. She does have mild slurring and moderate left facial droop. 4/5 left arm and leg weakness. She has left sided neglect and bumps into things on the left side when walking. She has significant nonfatiguing ataxia and is unable to balance/walk without a walker. She needs constant 1 person assist when standing and walking to avoid falling down. She is dragging the left leg, which worsens quickly with just a few steps in her room. The gait ataxia also becomes severe as she walks. Normal visual chong, conjugate gaze. Assessment & Plan 1. Right basal ganglia/Internal Capsule ischemic stroke, present on admission and active. 2. Uncontrolled hypertension, begin treatment after completing. Of permissive hypertension 3. Gait Ataxia/Left Sided Neglect/Left Foot Dragging 4. Anemia 5. Hyponatremia Plan: -Previously discussed with stroke team. -continue dual antiplatelet therapy, 21 days, then daily Aspirin. High dose statin. -echo showed 60-65% EF and Moderate TR without evidence of shunt. -PT and OT assessments continue to emphasize need for inpatient rehab before safe discharge home. -Hgb 9.3, assess with B12 and Folate and iron levels -Na 123, begin salt tabs daily and monitor. -add losartan Full resuscitation is proxy decision maker Exam Vital Signs (past 8 hours): - 02/10/25 00:00 02/10/25 04:00 Temperature 97.9 F 98.1 F Pulse Rate 76 71 Respiratory Rate 18 18 Blood Pressure 127/61 123/62 Pulse Oximetry 98 98 Oxygen Flow Rate 0 0 Oxygen Delivery Method Room Air Oxygen Flow Rate 0 Objective Labs 02/10/25 04:55 02/10/25 04:55 Labs: Laboratory Results - last 24 hr 02/09/25 02/10/25 05:37 04:55 WBC 8.2 RBC 2.82 L Hgb 8.5 L Hct 24.8 L MCV 88.1 MCH 30.3 MCHC 34.3 RDW 14.9 H Plt Count 307 Neut % (Auto) 68.2 Lymph % (Auto) 21.2 L [place] % (Auto) 8.5 Eos % (Auto) 1.5 L Baso % (Auto) 0.6 Neut # (Auto) 5600 Lymph # (Auto) 1700 [place] # (Auto) 700 Eos # (Auto) 100 Baso # (Auto) 0 Sodium 123 L Potassium 4.3 Chloride 95 L Carbon Dioxide 23 BUN 13 Creatinine 0.58 Estimated GFR > 60 BUN/Creatinine Ratio 22.4 H Glucose 104 H Calcium 8.4 Iron 40 TIBC 313 % Saturation 13 L Transferrin 251 Vitamin B12 289 Folate 12.2 PFSH Medical History History of peptic ulcer disease Medicare annual wellness visit, subsequent Dizziness Constipation GERD (gastroesophageal reflux disease) Recurrent UTI Hyperlipidemia Pre-diabetes Acid reflux History of palpitations Former smoker Bruises easily History of headache Constipation Cataract (2012) Colon polyps (2013) Chicken pox (1949) Mumps (1952) Dupuytren's disease () Osteoporosis (12/18/15) Surgical History History of colonoscopy with polypectomy (2013) Anesthesia History of cataract removal with insertion of prosthetic lens (2012) Status post delivery (1987) Family History Father Diabetes mellitus Grandfather Heart disease Grandmother Stroke Mother Osteoporosis Grandmother Mental health problem Dementia Sister Bone cancer Brother No problems noted. Brother No problems noted. Grandfather Ruptured appendix Sister No problems noted. Social History household members: spouse Smoking Status: Former smoker alcohol intake: current Assessment & Plan Time-Based Coding :: [TOTAL MINUTES] spent with patient and on the chart (including review of chart, obtaining history, exam, reviewing outside data, placing orders, documenting exam and treatment plan, and counseling patient) on [DATE]. Quality VTE Deep Vein Thrombosis/Pulmonary Embolism Present on Admission: Yes
[2025-02-10 08:00] VITALS: BP 126/71; PULSE 82; RESP 16; TEMP 36.3; O2SAT 98
[2025-02-10] MEDS: ASPIRIN EC 81 MG TABLET PO (08:53)
[2025-02-10] MEDS: CLOPIDOGREL 75 MG TABLET PO (08:53)
[2025-02-10] MEDS: ENOXAPARIN 40 MG/0.4 ML SYRINGE SUBCUT (08:53)
[2025-02-10 08:54] VITALS: BP 126/71
[2025-02-10] MEDS: SODIUM CHLORIDE 1,000 MG TABLET 1000 MG PO (08:54)
[2025-02-10] MEDS: SENNOSIDES 8.6 MG TABLET PO (08:54)
[2025-02-10] MEDS: LOSARTAN 50 MG TABLET PO (08:54)
[2025-02-10] MEDS: PANTOPRAZOLE DR 40 MG TABLET PO (08:55)
[2025-02-10 12:00] VITALS: BP 113/62; PULSE 75; RESP 16; TEMP 36.4; O2SAT 97
[2025-02-10] MEDS: SODIUM FERRIC GLUCONAT/SUCROSE 125 MG in SODIUM CHLORIDE 0.9% 100 ML 110 MG IV (12:54)
--- NOTE | 2025-02-10 12:57 | PT.IPTN ---
Current Diagnoses Cerebral infarction, unspecified (02/07/25) Physical Therapy Treatment Note M2 PT-IP Current Condition Start: 02/07/25 14:52 Freq: NEEDED Status: Active Protocol: Document 02/07/25 14:10 AB (Rec: 02/07/25 15:08 AB [id number]) Physical Therapy Current Condition Current Condition Evaluation Date 02/07/25 Treatment Diagnosis R CVA; difficulty in walking Onset Date 02/07/25 M3 PT-IP Subjective Start: 02/07/25 14:52 Freq: NEEDED Status: Active Protocol: Document 02/10/25 12:35 AMB (Rec: 02/10/25 12:57 AMB [id number]) Subjective Physical Therapy Visit Type Type Treatment Note Visit Start Time 11:30 Visit Stop Time 12:00 Physical Therapy Visit Comments Patient Comments Pt is sitting in the chair, is in the room. Pt happy to get up with therapy. M4 PT-IP Mobility and Gait Start: 02/07/25 14:52 Freq: NEEDED Status: Active Protocol: Document 02/10/25 12:35 AMB (Rec: 02/10/25 12:57 AMB [id number]) PT-Transfer Assessment Sit to and From Stand Sit to and from Independent Stand Transfers Transfer Destination Bed Transfer Technique Stand Step Pivot Transfer Ability Level of Assist Independent Comments Mobility Comments Lindsay with good safety awareness to use hands on chair both with sit to stand and stand to sit. Good use of FWW, did not leave it behind and managed all transfers with conversation while therapist was trying to assess her ability to dual task. Gait Assessment Gait Gait Assistance Standby Assistance Required: Distance (Feet) 300 Assistive Devices Assistive Device Gait Belt,Front Wheeled Walker Gait Deviations General Gait Pattern Decreased Stride Length Comments Gait Comments Lindsay was able to ambulate safely with a FWW. she did demonstrate very slight adduction on the left, but it was very minimal. Able to negotiate obstacles in the room and hallway without cueing. Stair Climbing Assessment Evaluation Level of Assist On Standby Assistance Stairs Devices Stair Climbing Front Wheel Walker Assistive Devices Technique/Endurance Stair Climbing Ascend and Descend Direction Stair Climbing Step to Step Technique Number of Steps 1 Climbed Stair Climbing Set # 1 Repetitions (reps) Comments Stair Climbing Cues for sequencing of walker and foot placement, good Comments safety awareness M5 PT-IP Objective Assessments Start: 02/07/25 14:52 Freq: NEEDED Status: Active Protocol: Document 02/07/25 14:10 AB (Rec: 02/07/25 15:08 AB [id number]) Orientation Orientation/Cognition Level of Alertness Alert Orientation Name,Place,Situation Safety Awareness Decreased Safety Awareness Gross Range of Motion Lower Extremity ROM Assessment Within Functional Limits Strength Lower Extremity Strength Assessment Within Functional Limits Coordination Assessment Gross Coordination Gross Coordination Impaired Assessment Finger to Nose Test Minimal Impairment Pronation/Supination Minimal Impairment Test Muscle Tone Muscle Tone WNL Yes M6 PT-IP Treatment Start: 02/07/25 14:52 Freq: NEEDED Status: Active Protocol: Document 02/08/25 13:05 AB (Rec: 02/08/25 14:32 AB Desktop) Physical Therapy Treatment Education Education Provided Safety M7 PT-IP Assessment and Plan Start: 02/07/25 14:52 Freq: NEEDED Status: Active Protocol: Document 02/10/25 12:35 AMB (Rec: 02/10/25 12:57 AMB [id number]) PT Summary Assessment and Plan Potential Rehabilitation Good Potential Summary Impairments Pain,ROM,Strength,Balance,Coordination,Sensation,Tone, Cognition,Bed Mobility,Transfers,Gait,Activity Tolerance Progress Towards Progressing Toward Goals Goals Assessment Summary Discussed d/c plan with Lindsay, her , and later OT, case management and MD. Lindsay has made good gains over the last 2 days and if she would like acute therapy could certainly benefit from an endurance perspective. However, she and her would very much prefer for her to go home if at all possible. Her states that they have an adult daughter than can come help for a little bit, he will be home all the time and they have friends who can assist if he needs to leave for groceries etc. Discussed outpatient vs home health and also discussed a shower chair. Would leave outpatient vs home health up to the patient and family. Goals Bed Mobility Goal Independent Transfer Goal Independent,Front Wheeled Walker Gait Goal Independent,Front Wheel Walker Gait Distance 200 Other Goals up/down 1 step using FWW mod I Days to Meet Goals 10 Frequency of Treatment Frequency Of Once a Day Treatment Treatment Plan Physical Therapy Bed Mobility Training,Transfer Training,Gait Training, Treatment Plan Therapeutic Exercise,Balance Retraining,Discharge Planning,Hot or Cold Pack,Neuromuscular Re-ed, Coordination Retraining,Manual Therapy Discharge Recommendations PT Discharge Home with 07/11 Assist Available,Home Health,Outpatient Recommendations PT - PT assist 1
--- NOTE | 2025-02-10 13:39 | OT.IP.TRT ---
Current Diagnoses Cerebral infarction, unspecified (02/07/25) Occupational Therapy Treatment Note M2 OT-IP Current Condition Start: 02/07/25 15:12 Freq: Status: Active Protocol: Document 02/10/25 13:18 MELANI (Rec: 02/10/25 13:38 MELANI Desktop) Occupational Therapy Current Condition Current Condition Evaluation Date 02/10/25 Treatment Diagnosis CVA Diagnosis Onset Date 02/07/25 M3 OT- IP Subjective and Pain Start: 02/07/25 15:12 Freq: Status: Active Protocol: Document 02/10/25 13:18 MELANI (Rec: 02/10/25 13:38 [facility]- Subjective Occupational Therapy Visit Type Type Treatment Note Visit Start Time 11:55 Visit Stop Time 12:24 Occupational Therapy Visit Comments Patient Comments Pt up in chair following PT, pt agreeable to participating in OT tx. Patient/Caregiver To go home Goals OT Pain Assessment Pain Present Pain Present Denied Pain M4 OT- IP ADL's Start: 02/07/25 15:12 Freq: Status: Active Protocol: Document 02/10/25 13:18 MELANI (Rec: 02/10/25 13:38 [facility] OT [id number]-[id number] General Evaluation Self-Feeding Ability Independent OT ADL-Grooming General Evaluation Grooming Ability Independent Comments OT Grooming Comments Pt washes her hands sink side following putty use, before deciding to toilet, and then again following toileting. OT ADL-Oral Care Comments Oral Care Comments not observed OT ADL-Dressing Comments OT Dressing Comments not observed OT ADL-Toileting General Evaluation Toileting Ability Independent Comments OT Toileting pt manages clothing and hygiene without assistance. Comments OT ADL-Bathing Comments OT Bathing Comments not observed M5 OT- IP IADL's Start: 02/07/25 15:12 Freq: Status: Active Protocol: Document 02/10/25 13:18 MELANI (Rec: 02/10/25 13:38 MELANI Desktop) OT-Instrumental Activities of Daily Living Deficits IADL Deficits Deficits Identified Home Safety Awareness Awareness of Need Good Awareness for Assistance at Home Medication Management Medication No Deficits Identified Management Money Management Money Management No Deficits Identified Meal Preparation Meal Preparation spouse can assist prn Comments Computed Tomography Technician Computed Tomography Technician spouse can assist prn Comments Driving Driving Comments spouse can assist prn M6 OT- IP Functional Cognition Start: 02/07/25 15:12 Freq: Status: Active Protocol: Document 02/07/25 15:12 MELANI (Rec: 02/07/25 15:29 [facility] Desktop) Cognitive Factors Limiting Selfcare Function Cognitive Ability Level of Alertness Alert Patient Orientation Name,Place,Situation Attention Span Capable of Focused Attention,Capable of Sustained Ability Attention Ability to Follow Able to Follow Multi-Step Commands Commands Memory Description No Deficits Noted OT- Vision and Hearing OT- Hearing Assessment OT- Hearing WFL Assessment OT- Vision Assessment Visual Acuity WFL,Glasses For Reading Visual Attentiveness WFL Occular Pursuits WFL Visual Convergence WFL Visual Wallace WFL Diplopia Absent M7 OT- IP Mobility and Balance Start: 02/07/25 15:12 Freq: Status: Active Protocol: Document 02/10/25 13:18 MELANI (Rec: 02/10/25 13:38 [facility] Desktop) OT-Transfer Assessment Sit to and From Stand Sit to and from Independent Stand Transfers Transfer Ability Independent Technique Transfer Destination Chair,Toilet Transfer Technique Stand Step Pivot Devices Transfer Assistive Gait Belt,Front Wheeled Walker Devices Comments Mobility Comments Pt performs sit>stand several times I with good safety awareness and hand placement. Pt t/fs from chair to perform sink side ADLs, returns to chair before t/f to commode returning to sink for ADLs and finally returning to chair for lunch. OT- Gait Assessment Gait Gait Assistance Standby Assistance Required: Distance (Feet) 40 Assistive Devices Assistive Device Gait Belt,Front Wheeled Walker OT- Balance Assessment Sitting Balance and Reactions Static Sitting Normal Balance Ability Dynamic Sitting Good Balance Ability Standing Balance and Reactions Static Standing Good Balance Ability Dynamic Standing Good Balance Ability M8 OT- IP Objective Assessments Start: 02/07/25 15:12 Freq: Status: Active Protocol: Document 02/10/25 13:18 MELANI (Rec: 02/10/25 13:38 [facility] Desktop) OT Gross Range of Motion Upper Extremity Range of Motion Assessment Within Functional Limits OT Strength Upper Extremity Strength Assessment Left Impaired Shoulder 4- Elbow 3+ Hand 3+ Hand Vessel Scrapper Helper Strength Hand Dominance Right Comments Strength Comments R UE 4+ to 5 overall OT- Coordination Assessment Upper Extremity Finger to Nose Test Left UE Impaired Finger Tapping Test Left UE Impaired Comments Coordination Pt continues to have delay with L hand coordination, Comments but this is somewhat improved since previous tx. Pt demonstrates a 6 second delay on 9 hole peg test from L to R. Pt performs tputty exercises (issued yellow putty). Pt performs gross grasp, digit ext, alternating tip pinch, putty pulls, and is instructed to perform object finding with putty when home. 9-Hole Peg Hand Test Hand Right Scoring Time 32 Left Scoring Time 38 M9 OT- IP Assessment and Plan Start: 02/07/25 15:12 Freq: Status: Active Protocol: Document 02/10/25 13:18 [facility] (Rec: 02/10/25 13:38 [facility] Desktop) OT Summary Assessment and Plan Potential Rehabilitation Excellent Potential Analytic Complexity Low at Evaluation Summary OT Impairments Strength,Balance,Coordination,Functional Mobility, Grooming,Dressing,Toileting,Bathing,Toilet Transfers, Shower Transfers Progress Towards Progressing Toward Goals Goals Assessment Summary Pt has made improvements with respect to FMC, safety awareness with functional tfs, functional tfs, and BADLs today. Pt performed sink side ADLs I'ly, toileting I'ly, and t/fed I'ly. Pt with a 6 second delay from L UE vs R UE with 9 hole peg test assessment . Pt was issued yellow tputty for home use and issued HEP for FMC dexterity and strengthening. Pt would benefit from home health OT vs outpatient OT on dc home . Pt is safe for dc home. Skilled OT services continue to be appropriate to work towards goals per POC. Goals Dressing Goal Independent Bathing Goal Independent Toilet Transfer Goal Independent Shower Transfer Goal Independent Days to Meet Goals 10 Frequency of Treatment Other frequency 5x/wk Treatment Plan OT Treatment Plan ADL Training,Functional Mobility,Neuromuscular Re- education,Therapeutic Exercises,Patient/Family Education,Discharge Planning Discharge Recommendations OT Discharge Home,Home Health,Outpatient PT Recommendations Other Discharge OT/PT vs outpatient OT/PT Recommendations Transportation Needs Private Vehicle at Discharge
--- NOTE | 2025-02-10 14:19 | CM.DPNOTE ---
DCP note ROCK LATHER reviewed EMR per PT/OT, cleared for OP f/u. much improved since admission. per provider will dc pt home after iron infusion today. ROCK LATHER met with pt and spouse in room. agreeable to dc home with OP f/u. asked this ROCK LATHER update PCP group. (PCP Samuel). deny further CM needs at this time ROCK LATHER canceled ref with [facility] ROCK LATHER updated TCM team. P: home today with OP f/u and spouse support. no further CM needs at this time. will continue to follow as needed in case any additional needs should arise KIM Wilkinson
--- NOTE | 2025-02-10 14:55 | P.DS_ITS ---
History of Present Illness History of Present Illness Date Patient Seen: 02/10/25 Chief complaint: code stroke L sided deficits Narrative: She was a 79-year-old female who has a history of hypertension and no previous history of stroke. She lives on [facility] with her . She went to bed last night, feeling normal. She would some trouble repositioning at about 4 in the morning. Her found her on the floor at about 630 with a left-sided weakness and a facial droop. She was transported via EMS to the emergency department. CTA and CT head negative. Left-sided weakness, facial droop, and dysarthria. MRI ordered, results pending. She was improving but still does have a left facial droop and very mild left-sided weakness. She denies headache. Discharge Providers Provider Date of admission: 02/07/25 09:17 Discharge Date: 02/10/25 Primary care physician: Darrel Baker DO Consults: 02/07/25 09:42 Consult to Discharge Planning Routine Comment: Consult to Occupational Therapy Evaluate & Treat Comment: Physician Instructions: Evaluate and treat Consult to Physical Therapy Evaluate & Treat Comment: Physician Instructions: Evaluate and Treat Consult to Speech Therapy Evaluate & Treat Comment: Physician Instructions: Evaluate and treat Discharge provider: William Lucas MD Summary Hospital Course Hospital Course: Right basal ganglia/Internal Capsule ischemic stroke Uncontrolled hypertension, begin treatment after completing period of permissive hypertension Gait Ataxia/Left Sided Neglect/Left Foot Dragging Anemia Hyponatremia In summary: She was discussed with the stroke team on admission and was treated with the following interventions. -continue dual antiplatelet therapy, 21 days, then daily Aspirin. High dose statin. -echo showed 60-65% EF and Moderate TR without evidence of shunt. -PT and OT assessments initially indicated need for inpatient rehab before safe discharge home. On the day of discharge she was evaluated again and had significant improvements in her left-sided neglect, gait ataxia and left foot dragging. She was felt to be safe to go home with her 's assistance. -the anemia with a hemoglobin of 9.3, then 8.6 and then 8.5 was assessed with a B12 level of 289, folate of 12.2 and iron level of 40. She was treated with IV iron and she will need to follow up with her primary care for further workup of the anemia and follow up CBC. Her sodium levels stabilized at 123 so that will also need to be followed up. She was started on 2 salt tablets per day. -Losartan was added for blood pressure. Status at Discharge Cognitive/behavioral status at discharge: at baseline, oriented Functional status at discharge: uses cane/walker Overall status at discharge: patient is progressing back to baseline Time Spent with Patient Time spent: Less than 30 minutes Exam Vital Signs (past 8 hours): - 02/10/25 08:00 02/10/25 08:54 02/10/25 12:00 Temperature 97.3 F L 97.5 F L Pulse Rate 82 75 Respiratory Rate 16 16 Blood Pressure 126/71 126/71 113/62 Pulse Oximetry 98 97 Oxygen Flow Rate 0 0 Oxygen Delivery Method Room Air Oxygen Flow Rate 0 Narrative Exam Narrative: Alert and oriented x3. No apparent distress. Heart is regular rate and rhythm without murmur. Lungs are clear to auscultation bilaterally. Extremities have no ankle edema. Bilateral phytopathologist strength and plantar flexion symmetrically 4/5. Her gait and balance and the left neglect are reportedly much closer to her baseline/improved on PT eval today. Objective Labs 02/10/25 04:55 02/10/25 04:55 Labs: Laboratory Results - last 24 hr 02/10/25 04:55 WBC 8.2 RBC 2.82 L Hgb 8.5 L Hct 24.8 L MCV 88.1 MCH 30.3 MCHC 34.3 RDW 14.9 H Plt Count 307 Neut % (Auto) 68.2 Lymph % (Auto) 21.2 L [place] % (Auto) 8.5 Eos % (Auto) 1.5 L Baso % (Auto) 0.6 Neut # (Auto) 5600 Lymph # (Auto) 1700 [place] # (Auto) 700 Eos # (Auto) 100 Baso # (Auto) 0 Sodium 123 L Potassium 4.3 Chloride 95 L Carbon Dioxide 23 BUN 13 Creatinine 0.58 Estimated GFR > 60 BUN/Creatinine Ratio 22.4 H Glucose 104 H Calcium 8.4 PFSH Medical History History of peptic ulcer disease Medicare annual wellness visit, subsequent Dizziness Constipation GERD (gastroesophageal reflux disease) Recurrent UTI Hyperlipidemia Pre-diabetes Acid reflux History of palpitations Former smoker Bruises easily History of headache Constipation Cataract (2012) Colon polyps (2013) Chicken pox (1949) Mumps (1953) Dupuytren's disease (~1989) Osteoporosis (12/18/15) Surgical History History of colonoscopy with polypectomy (2013) Anesthesia History of cataract removal with insertion of prosthetic lens (2012) Status post delivery (1987) Family History Father Diabetes mellitus Grandfather Heart disease Grandmother Stroke Mother Osteoporosis Grandmother Mental health problem Dementia Sister Bone cancer Brother No problems noted. Brother No problems noted. Grandfather Ruptured appendix Sister No problems noted. Social History household members: spouse Smoking Status: Former smoker alcohol intake: current Discharge Plan Discharge Plan Patient Disposition: Home Provider Discharge Comment: Follow-up with Dr. Baker in 1 week. Discharge orders & Medications Prescriptions: New losartan 50 mg Tablet 50 mg PO DAILY Qty: 30 0RF atorvastatin 20 mg Tablet 80 mg PO BEDTIME Qty: 30 0RF clopidogrel 75 mg Tablet 75 mg PO DAILY Qty: 17 0RF aspirin 81 mg Tablet,Delayed Release (Dr/Ec) 81 mg PO DAILY Qty: 30 0RF sodium chloride 1,000 mg Tablet,Soluble 1,000 mg PO BID Qty: 60 0RF Continued risedronate [Actonel] 35 mg tablet 35 mg PO QWEEK Qty: 12 3RF Rx Instructions: administer at least 30 minutes before the first food or drink of the day other than water. Follow up/Referrals: Darrel Baker DO [Primary Care Provider, Family Practice] Diet/Activity/Treatments Diet: Low-cholesterol Visit Report/Discharge Packet Stand Alone Forms: Patient Portal/API, Stroke Signs & Symptoms Discharge Data Primary Care Provider: Darrel Baker Quality VTE Deep Vein Thrombosis/Pulmonary Embolism Present on Admission: Yes
--- NOTE | 2025-02-10 16:58 | PC.NURSE ---
Discharge Note Patient A&O, VSS, RA, no complaints of pain/discomfort. Discharge packet reviewed with patient, all questions/concerns addressed. PIV/TELE discontinued. Patient able to dress self and pack all belongings. Patient taken down via wheelchair to POV accompanied by .
== END 2025-02-10 15:00 | disposition home or self-care (01) | DRG 65 ==
LOC: ED 08:32 → AC 09:17
PROVIDERS: Family Medicine; Admitting Provider Hospitalist; Emergency Provider Emergency Medicine; Family Provider Family Medicine; PCP Family Medicine; Referring Provider Emergency Medicine; Visit Provider Hospitalist
DX: I63.9 Cerebral infarction, unspecified (principal); E87.1 Hypo-osmolality and hyponatremia; G81.94 Hemiplegia, unspecified affecting left nondominant side; I10 Essential (primary) hypertension; R29.810 Facial weakness; R27.0 Ataxia, unspecified; D64.9 Anemia, unspecified; M81.0 Age-related osteoporosis without current pathological fracture; R29.705 NIHSS score 5; R29.703 NIHSS score 3; Z87.11 Personal history of peptic ulcer disease; Z87.891 Personal history of nicotine dependence
CPT/HCPCS: 36415; 70450; 70496; 70498; 70551; 80048; 80053; 80061; 80305; 81001; 82550; 82607; 82746; 82962; 83036; 83540; 83550; 84443; 84484; 85025; 85610; 85730; 90471; 90662; 92610; 93005; 93010; 93306; 97116; 97162; 97165; 97530; 99284; 99285; J1650; J2916; J7030; J7050

== ENCOUNTER → 2025-02-17 12:24 | Outpatient (CLI) | payer OTHER, SELFPAY ==
[2025-02-07 09:27] VITALS: BMI 25.0
[2025-02-17 13:09] LABS: HEMOLYSIS 49 (0-50); Iron 60 ug/dL (37-170)
[2025-02-17 13:18] LABS: Alanine Aminotransferase 25 IU/L (<35); Albumin 3.9 g/dL (3.5-5.0); Albumin Globulin Ratio 1.1 (1.0-2.8); Alkaline Phosphatase 121 U/L (38-126); Blood Urea Nitrogen 9 mg/dL (7-17); Calcium 9.1 mg/dL (8.4-10.2); Carbon Dioxide 22 mmol/L (22-32); Chloride 98 mmol/L (98-107); Estimated Glomerular Filt Rate > 60 mL/min (>60); Globulin 3.6 g/dL (1.7-4.1); Glucose 90 mg/dL (70-99); HEMOLYSIS 47 (0-50); Potassium 4.4 mmol/L (3.4-5.1); Sodium 128 mmol/L (137-145); Total Protein 7.5 g/dL (6.3-8.2)
[2025-02-17 13:20] LABS: Percent Iron Saturation 17 % (15-50); Total Iron Binding Capacity 361 ug/dL (265-497); Transferrin 310 mg/dL (206-381)
[2025-02-17 13:58] LABS: Vitamin B12 902 pg/mL (239-931)
== END ==
PROVIDERS: PCP Family Medicine; Referring Provider Family Medicine; Visit Provider Family Medicine
DX: M16.12 Unilateral primary osteoarthritis, left hip (principal); K21.9 Gastro-esophageal reflux disease without esophagitis; D64.9 Anemia, unspecified; M81.0 Age-related osteoporosis without current pathological fracture; Z87.11 Personal history of peptic ulcer disease; E55.9 Vitamin D deficiency, unspecified
CPT/HCPCS: 36415; 80053; 82607; 83540; 83550

== ENCOUNTER 2025-02-25 10:21 | Outpatient (RCR) | payer OTHER, SELFPAY ==
[2025-02-07 09:27] VITALS: BMI 25.0
--- NOTE | 2025-02-25 18:26 | ST.OPIE ---
Visit Care Team Role Provider Type Darrel Baker DO Attending Provider Physician Family Provider Primary Care Provider Referring Provider Specialty: Family Practice Address: [address] [place] [address], [facility] Email: [email or web address] Speech-Language Pathology Initial Evaluation SOAKER HELPER Adult Cognitive Linguistic Eval Start: 02/25/25 18:12 Freq: Status: Active Protocol: Document 02/25/25 18:12 SS (Rec: 02/25/25 18:26 SS [email or web address]) Adult Cognitive Linguistic Evaluation Session Time Visit Start Time 10:45 Visit Stop Time 11:30 Total Visit Minutes 45 Visit Information Visit Number 1 Plan of Care Dates 02/25/25-02/25/25 Insurance [employer] Medicare Advantage (no pre-auth CPT 65012, 66201 Information ,[id number], and [id number]) Referral Referring Provider Dr. Darrel Baker Reason for Referral CVA Setting Assessment Location Outpatient Care Visit Type Note Type Initial evaluation Patient Information Identification Type Name,Wristband Patient History Briana Collazo is a 79-year-old female, referred for a speech/language/cognition evaluation by Dr. Baker s/p CVA. Pt was hospitalized at [facility] 02/07 to 02/10 and seen by Oliver Epps CCC-SOAKER HELPER for swallowing evaluation which was WNL. Pt reports very mild residual left facial droop. She denied concerns regarding speech, voice, language, or swallowing. She has no concerns re: cognitive-communication, but would like evaluation to be completed to establish baseline per PCP recommendation. No other neuro hx reported or pertinent PMHx. Pt lives with spouse is independent with all ADLS and IADLs. She is not yet back to driving , though primarily due to physical limitations. Education Level Bachelors degree Occupation Status Retired (worked on [employer] and raised her children) Hearing Hearing Level Normal Vision Vision Status Impaired Comments Wears reading glasses Previous Therapy Previous Speech- Yes: See above Language Therapy Subjective Patient Report Pt denies cognitive-communication concerns at this time . Mental Status Alert,Responsive,Cooperative Assessment Oral Motor Yes Examination Completed Results Labial, lingual, and jaw range of motion and strength are WFL and not affecting motor speech. Slight L facial droop that appears to be spontaneously resolving. Pt denied s/sx of dysphagia. Informal Assessment Receptive Language Yes Normal Expressive Language Yes Normal Pragmatic Language Yes Normal Speech Normal Yes Cognition Normal Yes Formal Assessment Standardized Test/ Cognitive Linguistic Quick Test (CLQT) Screener Type Administration Complete Results The Cognitive Linguistic Quick Test (CLQT) was administered to obtain information regarding the pt?s cognitive abilities. The CLQT assesses five cognitive domains: attention, memory, executive functioning, language, and visuospatial skills. A domain and severity rating is calculated. Scores fall within a WNL and severe range describing a pt?s level of impairment. Additionally, a composite severity range is calculated. A score of 3.5- 4.0 is WNL, 2.5-3.4 is mild, 1.5-2.4 is moderate, and 1 .0-1.4 is severe. The pt scored as follows: Attention: 193 WNL Memory: 168 WNL Executive Functions: 29 WNL Language: 30 WNL Visuospatial Skills: 91 WNL Clock Drawin WNL Composite Severity Ratin.0 WNL Findings/Results Language Function Within normal limits Cognitive Function Within normal limits Findings Given informal assessment and results from CLQT, the pt presents with WNL cognitive-communication function s/p CVA. She reports no concerns at this time regarding completing of ADLs, IADLs, and overall communication effectiveness. Speech therapy services not warranted at this time. SOAKER HELPER provided education re: assessment results with pt expressing understanding and agreement. Recommended pt monitor function and request new referral to ST services if she notes any changes with cognitive-communication, swallowing, language, voice, or speech. Pt agreeable to plan. Plan of Care Speech-Language No Treatment Patient/Caregiver Described results of evaluation,Patient expressed Education understanding of evaluation
== END 2025-02-27 11:07 | disposition home or self-care (01) ==
LOC: SP 10:21
PROVIDERS: Family Provider Family Medicine; PCP Family Medicine; Referring Provider Family Medicine; Visit Provider Family Medicine
DX: I63.9 Cerebral infarction, unspecified (principal)
CPT/HCPCS: 96125

== ENCOUNTER 2025-03-25 09:45 | Outpatient (RCR) | payer OTHER, SELFPAY ==
[2025-02-07 09:27] VITALS: BMI 25.0
--- NOTE | 2025-02-21 14:17 | OT.OP.EVAL ---
Visit Care Team Role Provider Type Darrel Baker DO Attending Provider Physician Family Provider Primary Care Provider Referring Provider Specialty: Family Practice Address: [address] [place] [address], [facility] Email: [email or web address] Occupational Therapy Initial Evaluation OT Outpatient Adult Evaluation Start: 02/21/25 12:29 Freq: Status: Active Protocol: Document 02/21/25 12:30 AMS (Rec: 02/21/25 13:01 AMS [id number]) General Information - Adult Visit Number 04/28 Plan of Care Dates 02/21/25 - 04/18/25 Insurance [employer]vantage; *12 visits approved until 09/09 Visit Start Time 11:30 Visit Stop Time 12:15 Treatment Setting Outpatient Care Note Type Initial Evaluation Goals Short Term Goals 1. Patient will demonstrate improved active range of motion of affected shoulder: 1a. 0-110 degrees active left shoulder flexion range of motion by 03/31/25. 1b. 0-95 degrees active left shoulder abduction range of motion by 03/31/25. 2. Patient will demonstrate improved shoulder strength : 2a. 4/5 MMT L shoulder flexion by 03/31/25. 2b. 4/5 MMT L shoulder abduction by 03/31/25. 2c. 4+/5 MMT L shoulder adduction by 03/31/25. 2d. 4+/5 MMT L elbow extension by 03/31/25. Shelter Goals 1. Patient will be modified independent with UE home exercise program utilizing provided written and visual instructions provided by clinician by time of discharge from outpatient OT (04/18/25). 2. Patient will be able to complete the 9-HPT within 1 SD above the mean compared to same-aged peers (75+ y.o . female norms 24.6 +/- 4.3 seconds) by time of discharge from outpatient OT (04/18/25). Assessment/Plan Treatment Assessment Lindsay was admitted to [facility] on 02/07/25 secondary to being found on ground w/ L sided weakness and facial droop, dysarthria by her . She was discharged 02/10/25 to single level home w/ 1 step to enter, equipped w/ high toilet and walk-in shower. She resides with her on [facility]; she has a FWW, straight cane, and 2 walking sticks. Hobbies include gardening (mostly wells but some vegetables); she has yet to return to gardening, partially d/t weather, and sewing (which she hasn't been doing as of late). She was given HEP by inpatient OT involving yellow theraputty. She presented ambulating without mobility AE; she has speech evaluation scheduled next week (02/25/25) and is looking to schedule outpatient PT. She had PT previous year February -> April of 2024 d/t hip pain. Medical history is significant for peptic ulcer disease, dizziness, constipation, GERD, recurrent UTI, hyperlipidemia, pre-diabetes, acid reflux, h/o palpitations, constipation, headache, cataracts ( surgery 2012), colon polyps (surgery 2013), Dupuytren's disease (~1989), and osteoporosis (12/18/2015). Lindsay scored 28 out of 30 on the Mini Mental State Exam (MMSE) indicating no cognitive impairment on this standardized assessment. She correctly identified 39 out of 40 items with '[place] the numbers 91 and 30' with visual scanning activity, self-identifying 4 missed, 2-digit combinations. She reports return to reading without difficulties since discharge to home. (+) opposition of thumb to each digit accurately w/ EO and EC bilaterally; (+) thumb slides w/ EO bilaterally. (-) bilateral intrinsic tightness noted. Active range of motion: 0-110 degrees R sh flexion vs 0-98 degrees L sh flexion. 0-65 degrees R sh extension vs 0-55 degrees L sh extension. 0-95 degrees R sh abduction vs 0-87 degrees L sh abduction. Full functional active ROM with elbow flexion, extension, pronation and supination, wrist flexion and extension, and wrist RD and UD. MMT results: R sh flex 4/5 MMT vs L sh flex 3+/5 MMT. R sh ext 4/5 MMT vs L sh ext 4/5. R ER 4+/5 MMT vs L ER 3+/5 MMT. R IR 4+/5 MMT vs L IR 4+/5 MMT. R sh abd 4/5 MMT vs L sh abd 3+/5 MMT. R sh add 4+/5 MMT vs L sh add 4-/5 MMT. Forearm supination/pronation 5/5 MMT bilateral. R wrist flex 5/5 MMT vs L wrist flex 5/5 MMT . R wrist ext 5/5 MMT vs L wrist ext 5/[address] 5/5 MMT vs L wrist RD 5/5 MMT. R wrist UD 5/5 MMT vs L wrist UD 5/5 MMT. Dynamometer II Strength Testing Results with elbow in 90 degrees Flexion = R plumbing contractor 38.0# of force (compared to same-aged 75+ y.o. female peers 42.6 +/- 11.0# of force) (within 1 SD below the mean) versus L plumbing contractor 30.0# of force (compared to same-aged 75+ y.o. female peers 37.6 +/- 8.9# of force) (within 1 SD below the mean). Lateral Javier Pinch = R lateral pinch 9.5# of force ( compared to same-aged 75+ y.o. peers 12.6 +/- 2.3# of force) (> 1 SD below the mean) versus L lateral pinch 7 .0# of force (compared to same-aged 75+ y.o. peers 11.4 +/- 2.6# of force) (> 1 SD below the mean). Tip Pinch = R tip pinch 7.0# of force (compared to same-aged 75+ y.o. peers 9.6 +/- 2.8# of force) (within 1 SD below the mean) versus L tip pinch 4.5# of force (compared to same-aged 75+ peers 9.3 +/- 2.4# of force) (2 SD below the mean). 3-Jaw Pinch = R 3-jaw pinch 13.0# of force (compared to same-aged 75+ peers 12.0 +/- 2.6# of force ) (within 1 SD above the mean) versus L 3-jaw pinch 9.5 # of force (compared to same-aged 75+ peers 11.5 +/- 2. 6# of force) (within 1 SD below the mean). The 9-Hole Peg Test is a timed test in which 9 pegs are inserted and removed from 9 holes in the pegboard with each hand. It is an assessment that can be used to assess hand dexterity. Lindsay completed the test with her R hand in 25.5 seconds (compared to 75+ y.o. female norms 21.5 +/- 2.9 seconds) and with her L hand in 33. 5 seconds (compared to 75+ y.o. female norms 24.6 +/- 4 .3 seconds). Performance with the R hand was > 1 SD above the mean compared to same-aged peers. Performance with the L hand was > 2 SD above the mean compared to same-aged peers. Outpatient OT recommended to address affected side fine motor coordination/hand dexterity, UE sh ROM and UE strength. Length of treatment 8 (weeks) Plan of Care Start 02/21/25 Date Plan of Care End 04/18/25 Date Treatment Frequency Once a Week Therapeutic Contents Active Range of Motion,Adaptive Equipment Education, Functional Activities,Home Exercise Program,Joint Protection,Manual Therapy,Education,Neurodevelopment Treatment,Neuromuscular Re-Education,Self-Care, Therapeutic Activities,Therapeutic Exercises,Modalities Modalities As Needed,As Prescribed Additional Types of Heat/Ice/Contrast Baths/Paraffin/E-stim Modalities
--- NOTE | 2025-03-03 12:54 | OT.OP.TRT ---
Visit Care Team Role Provider Type Darrel Baker DO Attending Provider Physician Family Provider Primary Care Provider Referring Provider Specialty: Family Practice Address: [address] [place] [address], [facility] Email: [email or web address] Systems Occupational Therapy Treatment Note OT Outpatient Treatment Note - Adult Start: 02/21/25 12:29 Freq: Status: Active Protocol: Document 03/03/25 12:44 AMS (Rec: 03/03/25 12:51 AMS [id number]) OT Outpatient Adult Treatment Note Session Time Visit Start Time 10:45 Visit Stop Time 11:30 Visit Information Visit Number 05/29 Plan of Care Dates 02/21/25 - 04/18/25 Insurance [employer] Medicare Advantage; *12 visits approved until 09/09 Setting Treatment Setting Outpatient Care Visit Type Note Type Treatment Note General Information General Information Lindsay was admitted to [facility] on 02/07/25 secondary to being found on ground w/ L sided weakness and facial droop, dysarthria by her . She was discharged 02/10/25 to single level home w/ 1 step to enter, equipped w/ high toilet and walk-in shower. She resides with her on [facility]; she has a FWW, straight cane, and 2 walking sticks. Hobbies include gardening (mostly wells but some vegetables); she has yet to return to gardening, partially d/t weather, and sewing (which she hasn't been doing as of late). She was given HEP by inpatient OT involving yellow theraputty. She presented ambulating without mobility AE; she has speech evaluation scheduled next week (02/25/25) and is looking to schedule outpatient PT. She had PT previous year February -> April of 2024 d/t hip pain. Medical history is significant for peptic ulcer disease, dizziness, constipation, GERD, recurrent UTI, hyperlipidemia, pre-diabetes, acid reflux, h/o palpitations, constipation, headache, cataracts ( surgery 2012), colon polyps (surgery 2013), Dupuytren's disease (~1989), and osteoporosis (12/18/2015). - Subjective Identification Type Name Identification Medical Record Reconciled With Observations Lindsay denied any pain/discomfort of the UEs. However, did reported change in sensation of the distal R 2nd digit, R 4th finger, and the L 4th finger. She denied bilateral occurrence of symptoms. She denied symptoms being worse at night vs the day. Reported having dinner w/ her daughter this past weekend. *Has 6 children; 4 whom reside in [place] ([place], [place]); 1 will be moving to [place] and [place] [facility]; has 3 grandchildren; has no great grandchildren - Objective Objective Please refer to below for progress towards meeting Measurements established OT goals: Short Term Goals 1. Patient will demonstrate improved active range of motion of affected shoulder: 1a. 0-110 degrees active left shoulder flexion range of motion by 03/31/25. 1b. 0-95 degrees active left shoulder abduction range of motion by 03/31/25. 2. Patient will demonstrate improved shoulder strength : 2a. 4/5 MMT L shoulder flexion by 03/31/25. 2b. 4/5 MMT L shoulder abduction by 03/31/25. 2c. 4+/5 MMT L shoulder adduction by 03/31/25. 2d. 4+/5 MMT L elbow extension by 03/31/25. Shoe Treer Goals 1. Patient will be modified independent with UE home exercise program utilizing provided written and visual instructions provided by clinician by time of discharge from outpatient OT (04/18/25). 2. Patient will be able to complete the 9-HPT within 1 SD above the mean compared to same-aged peers (75+ y.o . female norms 24.6 +/- 4.3 seconds) by time of discharge from outpatient OT (04/18/25). - Exercises 3 Descriptor ROM standing at wall. Bilateral sh flex. 1 x 30 sec. Discussed positioning of feet, hands, and WB. 2 Descriptor Supine ROM. Bilateral ER. Hands positioned behind head. 1 hold x 30 sec. 2 x 10. Bilateral shoulder flexion. 2 x 10. Bilateral PNF diagonals. 2 x 10. Bilateral sh abd. 2 x 10. Bilateral hor sh abd ER. 2 x 10. 1 Descriptor UEB seated. Chair depth #9. Arm pedal height #2. x 8 min forwards. x 2 min backwards. - Assessment Assessment of Initiated UE ROM exercises; introduced supine, as well Improvement based ROM exercises. Recommend revisiting at time of next treatment session preference. Recommend instruction in additional wall ROM exercises. - Plan Therapy Advance per Rehabilitation Protocol Recommendations
--- NOTE | 2025-03-06 11:56 | OT.OP.TRT ---
Visit Care Team Role Provider Type Darrel Baker DO Attending Provider Physician Family Provider Primary Care Provider Referring Provider Specialty: Family Practice Address: [address] [place] [address], [facility] Email: [email or web address] Occupational Therapy Treatment Note OT Outpatient Treatment Note - Adult Start: 02/21/25 12:29 Freq: Status: Active Protocol: Document 03/06/25 11:54 AMS (Rec: 03/06/25 11:56 AMS [id number]) OT Outpatient Adult Treatment Note Session Time Visit Start Time 11:45 Visit Information Visit Number 05/29 Plan of Care Dates 02/21/25 - 04/18/25 Insurance [employer] Medicare Advantage; *12 visits approved until 09/09 Setting Treatment Setting Outpatient Care Visit Type Note Type Treatment Note - Subjective Observations Lindsay did not show for her scheduled outpatient OT appointment at 11:30 a.m. She was contacted via [employer]; she was notified of her missed appointment and informed that she had no additional appointments scheduled at this time. She was provided with the outpatient clinic's front office spec staff front office spec telephone number to schedule additional visits. Clinician to follow-up as appropriate. - - - -
--- NOTE | 2025-03-11 12:36 | OT.OP.TRT ---
Visit Care Team Role Provider Type Darrel Baker DO Attending Provider Physician Family Provider Primary Care Provider Referring Provider Specialty: Family Practice Address: [address] [place] [address], [facility] Email: [email or web address] Occupational Therapy Treatment Note OT Outpatient Treatment Note - Adult Start: 02/21/25 12:29 Freq: Status: Active Protocol: Document 03/11/25 12:25 AMS (Rec: 03/11/25 12:33 AMS [id number]) OT Outpatient Adult Treatment Note Session Time Visit Start Time 09:45 Visit Stop Time 10:30 Visit Information Visit Number 06/26 Plan of Care Dates 02/21/25 - 04/18/25 Insurance [employer] Medicare Advantage; *12 visits approved until 09/09 Setting Treatment Setting Outpatient Care Visit Type Note Type Treatment Note General Information General Information Lindsay was admitted to [facility] on 02/07/25 secondary to being found on ground w/ L sided weakness and facial droop, dysarthria by her . She was discharged 02/10/25 to single level home w/ 1 step to enter, equipped w/ high toilet and walk-in shower. She resides with her on [facility]; she has a FWW, straight cane, and 2 walking sticks. Hobbies include gardening (mostly wells but some vegetables); she has yet to return to gardening, partially d/t weather, and sewing (which she hasn't been doing as of late). She was given HEP by inpatient OT involving yellow theraputty. She presented ambulating without mobility AE; she has speech evaluation scheduled next week (02/25/25) and is looking to schedule outpatient PT. She had PT previous year February -> April of 2024 d/t hip pain. Medical history is significant for peptic ulcer disease, dizziness, constipation, GERD, recurrent UTI, hyperlipidemia, pre-diabetes, acid reflux, h/o palpitations, constipation, headache, cataracts ( surgery 2012), colon polyps (surgery 2013), Dupuytren's disease (~1989), and osteoporosis (12/18/2015). - Subjective Observations Lindsay indicated that she thought the appointment last week, the , was a Monday not a . She reported that she slept on her left side/on the left shoulder; she verbally indicated 6-7 out of 10 on the verbal pain scale of 0 to 10 relative to the left shoulder joint. - Objective Objective Please refer to below for progress towards meeting Measurements established OT goals: Short Term Goals 1. Patient will demonstrate improved active range of motion of affected shoulder: 1a. 0-110 degrees active left shoulder flexion range of motion by 03/31/25. 1b. 0-95 degrees active left shoulder abduction range of motion by 03/31/25. 2. Patient will demonstrate improved shoulder strength : 2a. 4/5 MMT L shoulder flexion by 03/31/25. 2b. 4/5 MMT L shoulder abduction by 03/31/25. 2c. 4+/5 MMT L shoulder adduction by 03/31/25. 2d. 4+/5 MMT L elbow extension by 03/31/25. Penitentiary Goals 1. Patient will be modified independent with UE home exercise program utilizing provided written and visual instructions provided by clinician by time of discharge from outpatient OT (04/18/25). 2. Patient will be able to complete the 9-HPT within 1 SD above the mean compared to same-aged peers (75+ y.o . female norms 24.6 +/- 4.3 seconds) by time of discharge from outpatient OT (04/18/25). - Exercises 5 Descriptor Tricep Dips with chair with arm rests. 2 x 10. 4 Descriptor UB Strengthening. Sh flexion. 2# DB. 2 x 10. Palms facing down towards the floor. Sitting. Sh abduction. 2# DB. 2 x 10. Palms facing down towards the floor. Sitting. Sh extension. 2# DB. 2 x 10. Palms facing forwards. Standing. Bicep curls. 2# DB. 2 x 10. Sitting. 3 Descriptor ROM standing at wall. Bilateral sh flex slide. 1 x 30 sec. Discussed positioning of feet, hands, and WB. 2 Descriptor Supine ROM. Bilateral ER. Hands positioned behind head. 1 hold x 30 sec. Bilateral chest stretch. Hands positioned out to the sides. 1 hold x 30 sec. Bilateral 'Y' stretch. Hands positioned in PNF diagonals. 1 hold x 30 sec. N/A 03/11/25 Bilateral shoulder flexion. 2 x 10. Bilateral PNF diagonals. 2 x 10. Bilateral sh abd. 2 x 10. Bilateral hor sh abd ER. 2 x 10. 1 Descriptor UEB seated. Chair depth #9. Arm pedal height #2. x 13 min forwards. - Assessment Assessment of Discussed L shoulder UE range of motion in standing vs Improvement supine on mat. Introduced UB strengthening. See above for details. Recommend providing visual and/or written instructions for these exercises at time of next treatment session. - Plan Therapy Advance per Rehabilitation Protocol Recommendations Occupational Therapy Assessment OT Outpatient Standardized Assessments Start: 02/21/25 12:29 Freq: Status: Active Protocol: Document 03/11/25 12:25 AMS (Rec: 03/11/25 12:33 AMS [id number]) 9-Hole Peg Hand Test Hand Left Date of Test 02/21/25 Comments completed in 33.5 seconds compared to 75+ y.o. female norms 24.6 +/- 4.3 seconds; > 2 SD above the mean compared to same-aged peers Right Date of Test 02/21/25 Comments completed in 25.5 seconds compared to 75+ y.o. female norms 21.5 +/- 2.9 seconds; > 1 SD above the mean compared to same-aged peers
--- NOTE | 2025-03-25 11:09 | OT.OP.DC ---
Visit Care Team Role Provider Type Darrel Baker DO Attending Provider Physician Family Provider Primary Care Provider Referring Provider Address: [address] [place] [address], [id number] Email: [email or web address] Outpatient OT Outpatient Adult Evaluation Start: 02/21/25 12:29 Freq: Status: Active Protocol: Document 02/21/25 12:30 AMS (Rec: 02/21/25 13:01 AMS [id number]) General Information - Adult Visit Information Visit Number 04/28 Plan of Care Dates 02/21/25 - 04/18/25 Insurance [employer]vantage; *12 visits approved until 09/09 Session Time Visit Start Time : Visit Stop Time 12:15 Setting Treatment Setting Outpatient Care Visit Type Note Type Initial Evaluation Goals Short Term Goals Short Term Goals 1. Patient will demonstrate improved active range of motion of affected shoulder: 1a. 0-110 degrees active left shoulder flexion range of motion by 03/31/25. 1b. 0-95 degrees active left shoulder abduction range of motion by 03/31/25. 2. Patient will demonstrate improved shoulder strength : 2a. 4/5 MMT L shoulder flexion by 03/31/25. 2b. 4/5 MMT L shoulder abduction by 03/31/25. 2c. 4+/5 MMT L shoulder adduction by 03/31/25. 2d. 4+/5 MMT L elbow extension by 03/31/25. Testing Projects Administrator Goals Half-Way Goals 1. Patient will be modified independent with UE home exercise program utilizing provided written and visual instructions provided by clinician by time of discharge from outpatient OT (04/18/25). 2. Patient will be able to complete the 9-HPT within 1 SD above the mean compared to same-aged peers (75+ y.o . female norms 24.6 +/- 4.3 seconds) by time of discharge from outpatient OT (04/18/25). Assessment/Plan Assessment Treatment Assessment Lindsay was admitted to [facility] on 02/07/25 secondary to being found on ground w/ L sided weakness and facial droop, dysarthria by her . She was discharged 02/10/25 to single level home w/ 1 step to enter, equipped w/ high toilet and walk-in shower. She resides with her on [facility]; she has a FWW, straight cane, and 2 walking sticks. Hobbies include gardening (mostly wells but some vegetables); she has yet to return to gardening, partially d/t weather, and sewing (which she hasn't been doing as of late). She was given HEP by inpatient OT involving yellow theraputty. She presented ambulating without mobility AE; she has speech evaluation scheduled next week (02/25/25) and is looking to schedule outpatient PT. She had PT previous year February -> April of 2024 d/t hip pain. Medical history is significant for peptic ulcer disease, dizziness, constipation, GERD, recurrent UTI, hyperlipidemia, pre-diabetes, acid reflux, h/o palpitations, constipation, headache, cataracts ( surgery 2012), colon polyps (surgery 2013), Dupuytren's disease (~1989), and osteoporosis (12/18/2015). Lindsay scored 28 out of 30 on the Mini Mental State Exam (MMSE) indicating no cognitive impairment on this standardized assessment. She correctly identified 39 out of 40 items with '[place] the numbers 91 and 30' with visual scanning activity, self-identifying 4 missed, 2-digit combinations. She reports return to reading without difficulties since discharge to home. (+) opposition of thumb to each digit accurately w/ EO and EC bilaterally; (+) thumb slides w/ EO bilaterally. (-) bilateral intrinsic tightness noted. Active range of motion: 0-110 degrees R sh flexion vs 0-98 degrees L sh flexion. 0-65 degrees R sh extension vs 0-55 degrees L sh extension. 0-95 degrees R sh abduction vs 0-87 degrees L sh abduction. Full functional active ROM with elbow flexion, extension, pronation and supination, wrist flexion and extension, and wrist RD and UD. MMT results: R sh flex 4/5 MMT vs L sh flex 3+/5 MMT. R sh ext 4/5 MMT vs L sh ext 4/5. R ER 4+/5 MMT vs L ER 3+/5 MMT. R IR 4+/5 MMT vs L IR 4+/5 MMT. R sh abd 4/5 MMT vs L sh abd 3+/5 MMT. R sh add 4+/5 MMT vs L sh add 4-/5 MMT. Forearm supination/pronation 5/5 MMT bilateral. R wrist flex 5/5 MMT vs L wrist flex 5/5 MMT . R wrist ext 5/5 MMT vs L wrist ext 5/[address] 5/5 MMT vs L wrist RD 5/5 MMT. R wrist UD 5/5 MMT vs L wrist UD 5/5 MMT. Dynamometer II Strength Testing Results with elbow in 90 degrees Flexion = R hub bander 38.0# of force (compared to same-aged 75+ y.o. female peers 42.6 +/- 11.0# of force) (within 1 SD below the mean) versus L hub bander 30.0# of force (compared to same-aged 75+ y.o. female peers 37.6 +/- 8.9# of force) (within 1 SD below the mean). Lateral Javier Pinch = R lateral pinch 9.5# of force ( compared to same-aged 75+ y.o. peers 12.6 +/- 2.3# of force) (> 1 SD below the mean) versus L lateral pinch 7 .0# of force (compared to same-aged 75+ y.o. peers 11.4 +/- 2.6# of force) (> 1 SD below the mean). Tip Pinch = R tip pinch 7.0# of force (compared to same-aged 75+ y.o. peers 9.6 +/- 2.8# of force) (within 1 SD below the mean) versus L tip pinch 4.5# of force (compared to same-aged 75+ peers 9.3 +/- 2.4# of force) (2 SD below the mean). 3-Jaw Pinch = R 3-jaw pinch 13.0# of force (compared to same-aged 75+ peers 12.0 +/- 2.6# of force ) (within 1 SD above the mean) versus L 3-jaw pinch 9.5 # of force (compared to same-aged 75+ peers 11.5 +/- 2. 6# of force) (within 1 SD below the mean). The 9-Hole Peg Test is a timed test in which 9 pegs are inserted and removed from 9 holes in the pegboard with each hand. It is an assessment that can be used to assess hand dexterity. Lindsay completed the test with her R hand in 25.5 seconds (compared to 75+ y.o. female norms 21.5 +/- 2.9 seconds) and with her L hand in 33. 5 seconds (compared to 75+ y.o. female norms 24.6 +/- 4 .3 seconds). Performance with the R hand was > 1 SD above the mean compared to same-aged peers. Performance with the L hand was > 2 SD above the mean compared to same-aged peers. Outpatient OT recommended to address affected side fine motor coordination/hand dexterity, UE sh ROM and UE strength. Plan Length of treatment 8 (weeks) Plan of Care Start 02/21/25 Date Plan of Care End 04/18/25 Date Treatment Frequency Once a Week Therapeutic Contents Active Range of Motion,Adaptive Equipment Education, Functional Activities,Home Exercise Program,Joint Protection,Manual Therapy,Education,Neurodevelopment Treatment,Neuromuscular Re-Education,Self-Care, Therapeutic Activities,Therapeutic Exercises,Modalities Modalities As Needed,As Prescribed Additional Types of Heat/Ice/Contrast Baths/Paraffin/E-stim Modalities Functional Wrist/Hand Scan Hand Side Sensory Assessment Sensory Profile2 OT Outpatient Treatment Note - Adult Start: 02/21/25 12:29 Freq: Status: Active Protocol: Document 03/25/25 11:01 [facility] (Rec: 03/25/25 11:09 [facility] [id number]) OT Outpatient Adult Treatment Note Session Time Visit Start Time 09:45 Visit Stop Time 10:30 Visit Information Visit Number 4/12 Plan of Care Dates 02/21/25 - 04/18/25 Insurance [employer]vantage; *12 visits approved until 09/09 Setting Treatment Setting Outpatient Care Visit Type Note Type Treatment Note General Information General Information Lindsay was admitted to [facility] on 02/07/25 secondary to being found on ground w/ L sided weakness and facial droop, dysarthria by her . She was discharged 02/10/25 to single level home w/ 1 step to enter, equipped w/ high toilet and walk-in shower. She resides with her on [facility]; she has a FWW, straight cane, and 2 walking sticks. Hobbies include gardening (mostly wells but some vegetables); she has yet to return to gardening, partially d/t weather, and sewing (which she hasn't been doing as of late). She was given HEP by inpatient OT involving yellow theraputty. She has 6 children; 3 of her children reside in [place], [place]. She presented ambulating without mobility AE; she has speech evaluation scheduled next week (02/25/25) and is looking to schedule outpatient PT. She had PT previous year February -> April of 2024 d/t hip pain. Medical history is significant for peptic ulcer disease, dizziness, constipation, GERD, recurrent UTI, hyperlipidemia, pre-diabetes, acid reflux, h/o palpitations, constipation, headache, cataracts ( surgery 2012), colon polyps (surgery 2013), Dupuytren's disease (~1989), and osteoporosis (12/18/2015). - Subjective Observations Lindsay verbally indicated 2 out of 10 on the verbal pain relative to the left shoulder. - Objective Objective Please refer to below for progress towards meeting Measurements established OT goals: Short Term Goals ALL GOALS D/C 03/25/25 1. Patient will demonstrate improved active range of motion of affected shoulder: 1a. 0-110 degrees active left shoulder flexion range of motion by 03/31/25. 1b. 0-95 degrees active left shoulder abduction range of motion by 03/31/25. 2. Patient will demonstrate improved shoulder strength : 2a. 4/5 MMT L shoulder flexion by 03/31/25. 2b. 4/5 MMT L shoulder abduction by 03/31/25. 2c. 4+/5 MMT L shoulder adduction by 03/31/25. 2d. 4+/5 MMT L elbow extension by 03/31/25. Half-Way Goals ALL GOALS D/C 03/25/25 1. Patient will be modified independent with UE home exercise program utilizing provided written and visual instructions provided by clinician by time of discharge from outpatient OT (04/18/25). 2. Patient will be able to complete the 9-HPT within 1 SD above the mean compared to same-aged peers (75+ y.o . female norms 24.6 +/- 4.3 seconds) by time of discharge from outpatient OT (04/18/25). - Exercises 5 Descriptor N/A 03/25/25 Tricep Dips with chair with arm rests. 2 x 10. 4 Descriptor UB Strengthening. Sh flexion. 2# DB. 3 x 10. Palms facing down towards the floor. Sitting. Sh abduction. 2# DB. 3 x 10. Palms facing down towards the floor. Sitting. Sh extension. 2# DB. 3 x 10. Palms facing forwards. Standing. Sh ER. 2# DB. 3 x 10. Palms facing towards the ceiling. Sitting. Bicep curls. 3# DB. 3 x 10. Sitting. 3 Descriptor N/A 03/25/25 ROM standing at wall. Bilateral sh flex slide. 1 x 30 sec. Discussed positioning of feet, hands, and WB. 2 Descriptor Supine ROM. Bilateral ER. Hands positioned behind head. 1 hold x 30 sec. Bilateral chest stretch. Hands positioned out to the sides. 1 hold x 30 sec. Bilateral 'Y' stretch. Hands positioned in PNF diagonals. 1 hold x 30 sec. N/A 03/11/25 Bilateral shoulder flexion. 2 x 10. Bilateral PNF diagonals. 2 x 10. Bilateral sh abd. 2 x 10. Bilateral hor sh abd ER. 2 x 10. 1 Descriptor UEB seated. Chair depth #9. Arm pedal height #2. x 15 min forwards. - Assessment Assessment of Lindsay reports availability of 2# and 3# DB in the home Improvement to cont UE strength training. Provided visual and written instructions for exercises at time of next treatment session. Lindsay reports that this will likely be her last treatment session and she won't schedule any more. Thus, will complete discharge paperwork. Home Exercise Written and visual instructions for HEP were provided. Program Did instructed in ER in sitting on this date as well. Recommend 2-3 times per week, every other day. - Plan Therapy Discharge from Occupational Therapy Recommendations
== END 2025-03-26 09:34 | disposition home or self-care (01) ==
LOC: OT 09:45
PROVIDERS: Family Provider Family Medicine; PCP Family Medicine; Referring Provider Family Medicine; Visit Provider Family Medicine
DX: I63.9 Cerebral infarction, unspecified (principal)
CPT/HCPCS: 97110; 97165; 97530

== ENCOUNTER → 2025-04-15 10:45 | Outpatient (CLI) | payer OTHER, SELFPAY ==
[2025-02-07 09:27] VITALS: BMI 25.0
[2025-04-15 11:25] LABS: Reticulocyte Count, Percent 0.9 % (1.1-2.6)
[2025-04-15 11:27] LABS: Add Manual Diff / Slide Review NO; Hematocrit 26.1 % (36-46); Hemoglobin 8.6 g/dL (12.0-16.0); Lymphocytes Absolute Auto 1500 /uL (1100-4500); Mean Corpuscular HGB Conc 32.9 % (30-36); Mean Corpuscular Hemoglobin 27.3 PG (26-34); Mean Corpuscular Volume 82.9 fL (80-100); Platelet Count 401 X10^3/uL (150-400)
[2025-04-15 12:20] LABS: HEMOLYSIS < 15 (0-50); Iron 41 ug/dL (37-170)
[2025-04-15 12:21] LABS: Alanine Aminotransferase 48 IU/L (<35); Albumin 3.8 g/dL (3.5-5.0); Albumin Globulin Ratio 1.0 (1.0-2.8); Alkaline Phosphatase 236 U/L (38-126); Blood Urea Nitrogen 16 mg/dL (7-17); Calcium 9.3 mg/dL (8.4-10.2); Carbon Dioxide 26 mmol/L (22-32); Chloride 98 mmol/L (98-107); Estimated Glomerular Filt Rate > 60 mL/min (>60); Globulin 3.7 g/dL (1.7-4.1); Glucose 89 mg/dL (70-99); HEMOLYSIS < 15 (0-50); Potassium 4.5 mmol/L (3.4-5.1); Sodium 133 mmol/L (137-145); Total Protein 7.5 g/dL (6.3-8.2)
[2025-04-15 12:31] LABS: Percent Iron Saturation 10 % (15-50); Total Iron Binding Capacity 408 ug/dL (265-497); Transferrin 350 mg/dL (206-381)
[2025-04-15 12:48] LABS: Ferritin 7 ng/mL (11-264)
[2025-04-15 13:02] LABS: Vitamin B12 513 pg/mL (239-931)
== END ==
PROVIDERS: Family Provider Family Medicine; PCP Family Medicine; Referring Provider Family Medicine; Visit Provider Family Medicine
DX: I10 Essential (primary) hypertension (principal); D64.9 Anemia, unspecified; E87.1 Hypo-osmolality and hyponatremia; I63.9 Cerebral infarction, unspecified; R73.03 Prediabetes; E87.5 Hyperkalemia
CPT/HCPCS: 36415; 80053; 82607; 82728; 83540; 83550; 85025; 85045